=== PATIENT | female | born 1970 | race Two or more races ===

== ENCOUNTER 2021-11-13 16:49 | Emergency (ER) | payer OTHER, SELFPAY ==
--- NOTE | ~2021-11-13 | XR_ITS ---
EXAMINATION: XR CHEST CLINICAL INFORMATION: Shortness of breath COMPARISON: None TECHNIQUE: Frontal view of the chest was obtained. FINDINGS: The lungs are clear. No airspace consolidation, pleural effusion, or pneumothorax. The cardiomediastinal silhouette is within normal limits. No acute osseous injury. XR/XR chest 1V IMPRESSION: No acute pulmonary process.
[2021-11-13 17:07] VITALS: BP 149/85; PULSE 77; RESP 20; TEMP 36.8; O2SAT 98; BMI 27.3
[2021-11-13 17:36] LABS: COVID-19 Test Negative (Negative)
[2021-11-13 20:06] VITALS: PULSE 96; RESP 18; O2SAT 99
--- NOTE | 2021-11-13 21:22 | ED.GENADULT ---
HPI - General Adult General Chief complaint: Dyspnea Stated complaint: coughing/difficulty breathing Time Seen by Provider: 11/13/21 21:09 Source: patient Mode of arrival: ambulatory Limitations: no limitations History of Present Illness HPI narrative: Patient comes to the emergency room complaining of coughing for 3 months. Patient denies chest pain, shortness of breath fever or chills. Patient states that she has been seen by her primary care physician, patient already had a pulmonary function test, patient is still waiting for her results. Patient denies hemoptysis, no rib pain, no back pain. Patient states she came today because she coughed up a lot of saliva. Patient states that the cough can be present and any time of day, states it is not worse with laying flat or when she is asleep. Patient denies lower extremity swelling Related Data Allergies Allergy/AdvReac Type Severity Reaction Status Date / Time Unable to Assess Allergy Unverified 11/13/21 21:10 Review of Systems Review of Systems: Constitutional : No Weight loss, No Fever, No Chills, No Night Sweats, No Fatigue, No Malaise ENT/Mouth : No Hearing loss, No Ear Pain, No Nasal Congestion, No Sinus Pain, No Hoarseness, No sore throat, No Rhinorrhea, No Swallowing Difficulty Eyes: No Eye Pain, No Swelling, No Redness, No Foreign Body, No Discharge, No Vision Changes Cardiovascular : No Chest Pain, No SOB, No Dyspnea on Exertion, No Orthopnea, No Edema, No Palpitations Respiratory : Complaining of chronic Cough, No Sputum, No Wheezing, No Smoke Exposure, No Dyspnea Gastrointestinal : No Nausea, No Vomiting, No Diarrhea, No Constipation, No abdominal Pain, No Hematochezia, No Melena Genitourinary : no irregular bleeding, No Dysuria, No Urinary Frequency, No Hematuria, No Urinary Incontinence, No Urgency, No Flank Pain, No Urinary Flow Changes, No Hesitancy Musculoskeletal : No joint pain, No Myalgias, No Joint Swelling Skin : No Skin Lesions, No rash Neuro : No Weakness, No Numbness, No Paresthesias, No Loss of Consciousness, No Dizziness, No Headache Psych : No Anxiety/Panic, No Depression, No SI/HI/AH/VH, No Social Issues, Heme/Lymph: No Bruising, No Bleeding,No Lymphadenopathy Endocrine : No Polyuria, No Polydipsia, No Temperature Intolerance PMFSH Social History Social History Advance Directives: No Advance Directives Information Provided: No Physical Exam ED Vital Signs: Vital Signs - 24 hr 11/13/21 17:07 11/13/21 20:06 Temperature 98.3 F Pulse Rate 77 96 Respiratory Rate 20 18 Blood Pressure 149/85 H Pulse Oximetry 98 99 Oxygen Delivery Method Room Air Room Air BMI result Body Mass Index 27.3 Const Other: Appearance: Alert. Oriented X3. No acute distress. Eyes: Pupils equal, round and reactive to light. ENT: Pharynx normal. Neck: Normal inspection. Neck supple. No lymph nodes noted. No crepitus CVS: Normal heart rate and rhythm. Pulses normal. Normal S1 and S2 Respiratory: No respiratory distress. Breath sounds normal. No Wheezing. No rales Abdomen: Soft and nontender. No rigidity. No distention. Skin: Skin warm and dry. Normal skin color. Normal skin turgor. Extremities: No lower extremity edema. No Lacerations. No Rash Neuro: Oriented X 3. No motor deficit. No sensory deficit. Moving all extremities. No slurred speech. CN 2 through 12 grossly intact Psych: calm, cooperative, normal affect Course Course Course Narrative: Chest x-ray and COVID tests are negative. At this time, patient is asymptomatic. Physical exam is normal, no wheezing. I discussed with the patient that she could follow up with pulmonology for further evaluation. I discussed with the patient that it is unlikely that cough syrup would be of any benefit to her. Medical Decision Making Lab Data Labs: Lab Results 11/13/21 Range/Units 17:09 COVID-19 ([facility]) Negative (Negative) COVID-19 Clin Com See Note Imaging Data Chest x-ray: Radiologist's impression: FINDINGS: The lungs are clear. No airspace consolidation, pleural effusion, or pneumothorax. The cardiomediastinal silhouette is within normal limits. No acute osseous injury. XR/XR chest 1V IMPRESSION: No acute pulmonary process. Discharge Plan Discharge Clinical Impression: Chronic cough Patient Disposition: Home, Self-Care Instructions: Chronic Cough (ED) Additional Instructions: Please follow-up with your primary care physician tomorrow. If you have any worsening or new symptoms, please return to the emergency room or call 911 Referrals: Aureliano Ann MD [Physician] - 2 days
== END 2021-11-13 22:05 | disposition home or self-care (01) ==
PROVIDERS: Emergency Provider Emergency Medicine
DX: R05.3 Chronic cough (principal); Z20.822 Contact with and (suspected) exposure to COVID-19
CPT/HCPCS: 71045; 87635; 99282; 99283

== ENCOUNTER 2022-04-17 07:51 | Emergency (ER) | payer OTHER, SELFPAY ==
--- NOTE | ~2022-04-17 | CT_ITS ---
EXAMINATION: CT ABDOMEN AND PELVIS WITH CONTRAST CLINICAL INFORMATION: 51-year-old female with right-sided pain for 2 days COMPARISON: None TECHNIQUE: Multidetector volumetric images were obtained from the superior aspect of the liver through the pubic symphysis following administration 85 mL of Omnipaque 350 intravenous contrast. Sagittal and coronal reformatted images were obtained on the technologist's workstation. Oral contrast: No This CT examination was performed using dose optimization techniques as appropriate, variously including the following: *Automated exposure control *Adjustment of mA and/or kV according to patient size (this includes techniques or standardized protocols for targeted exams where dose is matched to indication/reason for exam; i.e. extremities or head) *Use of iterative reconstruction technique DLP: 745 mGy-cm FINDINGS: LUNG BASES: Linear platelike opacities of atelectasis in the visualized bases. No pulmonary consolidation or pleural effusion. LIVER: The liver has normal size, shape, and attenuation. No evidence of liver mass. GALLBLADDER AND BILIARY TREE: Gallbladder is without radiopaque stones, wall thickening or pericholecystic fluid. No dilated bile ducts. PANCREAS: Normal. No edema, pancreatic ductal dilatation or mass. SPLEEN: Normal. ADRENAL GLANDS: Normal. KIDNEYS AND URETERS: The kidneys have normal size and cortical thickness. No renal mass. No perinephric edema or fluid collection. No urolithiasis or hydroureteronephrosis. BLADDER: Normal. No calculi or wall thickening. BOWEL AND PERITONEUM: Stomach is unremarkable. No dilated loops of bowel. The appendix is normal. Diverticula of sigmoid colon. No overt bowel wall thickening or mesenteric fat stranding. No free fluid or pneumoperitoneum. ABDOMINAL WALL: Unremarkable. VASCULATURE: Abdominal aorta is normal smooth contour. No aneurysm or dissection. The celiac trunk, SMA, SPARKLE and renal arteries are widely patent. The finding of subtle haziness of retroperitoneal fat around the proximal celiac artery trunk is of questionable if any significance. No evidence of any retroperitoneal mass or retroperitoneal lymphadenopathy. LYMPH NODES: No pathologic sized lymph nodes in the abdomen or pelvis. No inguinal lymphadenopathy. PELVIC VISCERA: The uterus is retroflexed. No evidence of uterine or adnexal mass. No pelvic free fluid. MUSCULOSKELETAL: Degenerative disc disease and minimal retrolisthesis at L5-S1. No suspicious bone lesions. CT/CT abdomen pelvis w IV con IMPRESSION: * No specific source of right-sided pain is identified. No evidence of cholelithiasis or cholecystitis. * No inflammatory change or obstruction along the gastrointestinal tract. The appendix is normal. * Diverticulosis of the sigmoid colon without diverticulitis. * Minimal haziness of retroperitoneal fat around the origin of the celiac artery is of uncertain chronicity and is of doubtful significance with regards to the patient's current presentation. No evidence of retroperitoneal mass or lymphadenopathy. The celiac artery has normal contour and caliber. If the patient has any unexplained abdominal symptoms that do not resolve, then a follow-up abdominal CT examination may be considered in the next few months to ensure absence of any evolving disease process.
[2022-04-17 07:54] VITALS: BP 151/84; PULSE 71; RESP 18; TEMP 36.6; O2SAT 97; BMI 26.6
[2022-04-17 08:05] VITALS: BP 134/85; PULSE 70; RESP 16; TEMP 36.8; O2SAT 98
--- NOTE | 2022-04-17 08:29 | ED.ABDPAIN ---
HPI - Abdominal Pain General Chief Complaint: Abdominal Pain Stated Complaint: rt abd pain Time Seen by Provider: 04/17/22 07:58 Source: patient Mode of arrival: ambulatory Limitations: no limitations History of Present Illness HPI narrative: This is a 51-year-old female who presents with right-sided abdominal pain which radiates to the flank for 2 days. No nausea, vomiting, diarrhea, constipation. Last BM was yesterday. No fevers or chills. No surgical abdominal history Related Data Previous Rx's Medication Instructions Recorded cyclobenzaprine 10 mg tablet 10 mg PO TID PRN muscle spasm #10 04/17/22 tabs lidocaine 5 % topical patch 1 patch topical DAILY #15 ea 04/17/22 (Lidoderm) Allergies Allergy/AdvReac Type Severity Reaction Status Date / Time Unable to Assess Allergy Unverified 11/13/21 21:10 Review of Systems Review of Systems Yes all other systems are reviewed and are negative Constitutional: Reports no additional constitutional complaints, Denies body ache(s), Denies chills, Denies fever(s), Denies headache(s) and Denies weakness Eyes: Reports no additional eye complaints and Denies change in vision Reports system reviewed and no additional complaints, except as documented, Denies dizziness, Denies headache(s), Denies nasal congestion, Denies nasal discharge and Denies neck pain Cardiovascular: Reports no additional cardiovascular complaints, Denies chest pain, Denies leg edema and Denies dyspnea Respiratory: Reports no additional respiratory complaints, Denies cough and Denies dyspnea Gastrointestinal: Reports no additional gastrointestinal complaints, Reports abdominal pain, Denies diarrhea, Denies nausea and Denies vomiting Genitourinary: Reports no additional female genitourinary complaints and Denies urinary incontinence Musculoskeletal: Reports no additional musculoskeletal complaints, Denies back pain, Denies arthralgias, Denies joint swelling, Denies neck pain, Denies numbness and Denies tingling Skin/Breast: Reports system reviewed and no additional complaints, except as docu and Denies rash Reports system reviewed and no additional complaints, except as documented, Denies dizziness, Denies headache(s), Denies numbness, Denies tingling and Denies weakness PMFSH Past Medical History Attestation statement: The following information was validated with the patient. Source: old records reviewed and nursing notes reviewed Social History Social History Smoked in Last 30 Days: No Use of substances other than those prescribed or required for medical reasons: No Advance Directives: No Physical Exam ED Vital Signs: Vital Signs - 24 hr 04/17/22 07:54 04/17/22 08:05 04/17/22 11:12 Temperature 97.8 F 98.2 F Pulse Rate 71 70 55 Respiratory Rate 18 16 15 Blood Pressure 151/84 H 134/85 142/92 H Pulse Oximetry 97 98 99 Oxygen Delivery Method Room Air Room Air Room Air BMI result Body Mass Index 26.6 Const General: cooperative, healthy appearing, comfortable and no acute distress Orientation/consciousness: patient oriented x3 Limitations: no limitations HENMT Head: Yes normal to inspection Ears: hearing grossly normal bilaterally Eyes General: appearance normal, both eyes and all related structures Pupils: Equal, round and reactive pupils present Neck Neck: Yes normal visual inspection, Yes full ROM, Yes no lymphadenopathy and Yes no meningeal signs Chest Chest palpation & inspection: normal inspection of the chest Resp Effort & Inspection: normal respiratory effort Auscultation: clear to auscultation bilaterally Cardio Rate: regular rate Rhythm: regular rhythm Peripheral pulses: Peripheral pulses 2+ throughout GI Other: Pain in the abdomen is worsened with rotation of the trunk and flexion of the spine Inspection: Yes normal to inspection Palpation (GI): Soft to palpation and Tenderness to palpation present (GI) (Tenderness the right upper quadrant and right flank) Auscultation: normal bowel sounds Back/Spine/Pelvis Thoracic/Lumbar Spine: thoracic and lumbar spine normal to inspection Skin General skin exam: no rashes or lesions noted Neuro General: patient oriented x3, moves all extremities and no meningeal signs Cranial nerves: Yes Equal, round and reactive pupils present Cognition (Neuro): normal cognition Gait exam (Neuro): Normal gait present Extrem General: Yes normal to inspection, Yes no pedal edema and Yes no calf tenderness Medical Decision Making Medical Decision Making MDM Narrative: 51-year-old female here with right-sided abdominal pain with radiation to the back for the last 2 days but no other associated symptoms. Will obtain labs, UA, CT, COVID screen. Will provide analgesia-patient requesting nonnarcotic Differential Diagnosis Differential Diagnoses: The differential diagnosis associated with the presentation includes Cholecystitis, cholelithiasis, renal colic, pyelonephritis, acute appendicitis Admission/Observation Consideration of admission/observation: Escalation of care including admission/observation considered CT with no acute finding. Labs and urine are unremarkable. Pain is much better with receiving a dose of Toradol IM. Repeat abdominal exam is benign. ? Musculoskeletal pain. Patient was instructed on the findings of the CT scan. It was recommended that she have follow-up for this. Will treat her for muscular pain with low-dose muscle relaxant and medicated patches. Patient should return for worsening symptoms. Consult Healthcare Provider Management of the patient was discussed with: [employer] Student Education Teacher (Gastroenterology) Spoke to Dr. Geiger from GI. Patient has some haziness of retroperitoneal fat around the origin of the celiac artery. ?celiac artery compression syndrome however less likely as is more of an acute episode and not a chronic problem. Dr. Geiger feels it is secondary to inflammation Lab Data MDM Lab Attestation statement: I reviewed the patient's lab results. 04/17/22 08:42 04/17/22 09:35 Labs: Lab Results 04/17/22 04/17/22 04/17/22 Range/Units 08:32 08:41 08:42 WBC 7.7 (4.8-10.8) X10*3/uL RBC 4.94 (4.20-5.50) X10*6/uL Hgb 13.5 (12.0-16.0) g/dl Hct 42.4 (37.0-47.0) % MCV 85.8 (80.0-98.0) fL MCH 27.3 (27.0-33.0) pg MCHC 31.8 (31.0-35.0) g/dl RDW 15.7 (11.0-16.0) % Plt Count 420 H (160-400) X10*3/uL MPV 9.8 (9.4-12.3) fL Immature Gran % (Auto) 0.3 (0.0-0.4) % Neut % (Auto) 58.1 (45-73) % Lymph % (Auto) 31.1 (20-40) % [place] % (Auto) 8.1 (2-11) % Eos % (Auto) 1.7 (0-4) % Baso % (Auto) 0.7 (0-2) % Lymph # (Auto) 2.4 (1.2-4.9) X10*3/uL [place] # (Auto) 0.6 (0.1-1.2) X10*3/uL Eos # (Auto) 0.1 (0.0-0.4) X10*3/uL Baso # (Auto) 0.1 (0.0-0.2) X10*3/uL Abs Immat Gran (auto) 0.02 (0.00-0.03) X10*3/uL Absolute Neuts (auto) 4.5 (2.0-8.3) x10*3/uL Absolute Nucleated RBC 0.000 (0.0-0.012) X10*3/uL Nucleated RBC % (auto) 0.0 (0.0-0.2) /100WBC Sodium (135-145) mmol/L Potassium (3.3-5.1) mmol/L Chloride (96-108) mmol/L Carbon Dioxide (22-29) mmol/L Anion Gap (12-20) BUN (9-16) mg/dL Creatinine (0.5-1.4) mg/dL Estim Creat Clear Calc Estimated GFR Random Glucose (60-115) mg/dL Calcium (8.4-10.2) mg/dL Total Bilirubin (0.0-1.0) mg/dL Direct Bilirubin (0.0-0.5) mg/dL AST (5-31) U/L ALT (0-31) U/L Alkaline Phosphatase (39-117) U/L Total Protein (6.5-8.0) g/dL Albumin (3.5-5.0) g/dL Urine Color Yellow Urine Appearance Cloudy Urine pH 7.0 (5.0-9.0) Ur Specific [place] 1.015 (1.005-1.025) Urine Protein Negative (Neg-Trace) mg/dL Urine Glucose (UA) Negative (Negative) mg/dL Urine Ketones Negative (Negative) mg/dL Urine Blood Negative (Negative) Urine Nitrite Negative (Negative) Ur Leukocyte Esterase Trace H (Negative) Urine RBC 0-2 (0-2) /HPF Urine WBC 0-5 (0-5) /HPF Ur Squamous Epith Cells 6-10 (0-2) /HPF Urine Bacteria 3+ (None Seen) Hyaline Casts 0-2 (0-2) /LPF COVID-19 ([facility]) Negative (Negative) COVID-19 Clin Com See Note 04/17/22 Range/Units 09:35 WBC (4.8-10.8) X10*3/uL RBC (4.20-5.50) X10*6/uL Hgb (12.0-16.0) g/dl Hct (37.0-47.0) % MCV (80.0-98.0) fL MCH (27.0-33.0) pg MCHC (31.0-35.0) g/dl RDW (11.0-16.0) % Plt Count (160-400) X10*3/uL MPV (9.4-12.3) fL Immature Gran % (Auto) (0.0-0.4) % Neut % (Auto) (45-73) % Lymph % (Auto) (20-40) % [place] % (Auto) (2-11) % Eos % (Auto) (0-4) % Baso % (Auto) (0-2) % Lymph # (Auto) (1.2-4.9) X10*3/uL [place] # (Auto) (0.1-1.2) X10*3/uL Eos # (Auto) (0.0-0.4) X10*3/uL Baso # (Auto) (0.0-0.2) X10*3/uL Abs Immat Gran (auto) (0.00-0.03) X10*3/uL Absolute Neuts (auto) (2.0-8.3) x10*3/uL Absolute Nucleated RBC (0.0-0.012) X10*3/uL Nucleated RBC % (auto) (0.0-0.2) /100WBC Sodium 139 (135-145) mmol/L Potassium 4.2 (3.3-5.1) mmol/L Chloride 105 (96-108) mmol/L Carbon Dioxide 25 (22-29) mmol/L Anion Gap 13 (12-20) BUN 13 (9-16) mg/dL Creatinine 0.76 (0.5-1.4) mg/dL Estim Creat Clear Calc 94.7 Estimated GFR > 60 Random Glucose 101 (60-115) mg/dL Calcium 9.4 (8.4-10.2) mg/dL Total Bilirubin 0.3 (0.0-1.0) mg/dL Direct Bilirubin < 0.2 (0.0-0.5) mg/dL AST 18 (5-31) U/L ALT 12 (0-31) U/L Alkaline Phosphatase 102 (39-117) U/L Total Protein 6.9 (6.5-8.0) g/dL Albumin 3.9 (3.5-5.0) g/dL Urine Color Urine Appearance Urine pH (5.0-9.0) Ur Specific [place] (1.005-1.025) Urine Protein (Neg-Trace) mg/dL Urine Glucose (UA) (Negative) mg/dL Urine Ketones (Negative) mg/dL Urine Blood (Negative) Urine Nitrite (Negative) Ur Leukocyte Esterase (Negative) Urine RBC (0-2) /HPF Urine WBC (0-5) /HPF Ur Squamous Epith Cells (0-2) /HPF Urine Bacteria (None Seen) Hyaline Casts (0-2) /LPF COVID-19 ([facility]) (Negative) COVID-19 Clin Com Independent Interpretation I performed an independent interpretation of an: CT Scan (I independently reviewed the CT scan which shows no acute finding) Radiology Impression Discussion of test interpretation with radiology: I have reviewed the radiologist's reading. Radiologist Impression: FINDINGS: LUNG BASES: Linear platelike opacities of atelectasis in the visualized bases. No pulmonary consolidation or pleural effusion.? LIVER: The liver has normal size, shape, and attenuation.? No evidence of liver mass. GALLBLADDER AND BILIARY TREE: Gallbladder is without radiopaque stones, wall thickening or pericholecystic fluid.? No dilated bile ducts. PANCREAS: Normal. No edema, pancreatic ductal dilatation or mass.? SPLEEN: Normal.? ADRENAL GLANDS: Normal.? KIDNEYS AND URETERS: The kidneys have normal size and cortical thickness. No renal mass. No perinephric edema or fluid collection. No urolithiasis or hydroureteronephrosis. BLADDER:? Normal. No calculi or wall thickening. BOWEL AND PERITONEUM: Stomach is unremarkable. No dilated loops of bowel. The appendix is normal. Diverticula of sigmoid colon. No overt bowel wall thickening or mesenteric fat stranding. No free fluid or pneumoperitoneum. ABDOMINAL WALL: Unremarkable.? VASCULATURE: Abdominal aorta is normal smooth contour. No aneurysm or dissection. The celiac trunk, SMA, SPARKLE and renal arteries are widely patent. The finding of subtle haziness of retroperitoneal fat around the proximal celiac artery trunk is of questionable if any significance. No evidence of any retroperitoneal mass or retroperitoneal lymphadenopathy. LYMPH NODES: No pathologic sized lymph nodes in the abdomen or pelvis. No inguinal lymphadenopathy. PELVIC VISCERA: The uterus is retroflexed. No evidence of uterine or adnexal mass. No pelvic free fluid. MUSCULOSKELETAL: Degenerative disc disease and minimal retrolisthesis at L5-S1. No suspicious bone lesions.? CT/CT abdomen pelvis w IV con IMPRESSION: *? No specific source of right-sided pain is identified. No evidence of cholelithiasis or cholecystitis. *? No inflammatory change or obstruction along the gastrointestinal tract. The appendix is normal. *? Diverticulosis of the sigmoid colon without diverticulitis. *? Minimal haziness of retroperitoneal fat around the origin of the celiac artery is of uncertain chronicity and is of doubtful significance with regards to the patient's current presentation. No evidence of retroperitoneal mass or lymphadenopathy. The celiac artery has normal contour and caliber. If the patient has any unexplained abdominal symptoms that do not resolve, then a follow-up abdominal CT examination may be considered in the next few months to ensure absence of any evolving disease process. ? Independent Historian Clinical information obtained from an independent historian. History obtained from or confirmed by: Spouse Medications Administered Discontinued Medications Generic Name Dose Route Start Last Admin Trade Name Freq PRN Reason Stop Dose Admin Iohexol 100 ml 04/17/22 10:36 04/17/22 10:37 Iohexol 350 Mg/Ml 100 Ml Infus..Btl IV 04/17/22 10:37 85 ml ONCE ONE Administration Ketorolac Tromethamine 30 mg 04/17/22 08:17 04/17/22 08:52 Ketorolac Tromethamine 30 Mg/Ml Vial IVPUSH 04/17/22 08:18 30 mg ONCE ONE Administration Discharge Plan Discharge Clinical Impression: Abdominal pain Patient Disposition: Home, Self-Care Instructions: Abdominal Pain (ED) Additional Instructions: Your CT scan of the abdomen pelvis shows a little bit of inflammation. This will likely resolve however if you are having continued pain it is recommend that you have a repeat CT scan in a few months by your primary care doctor. Your lab work and urine testing or reassuring On exam you have a lot of tenderness over the muscle and soft tissue of the back and side. This may be muscular in nature. Therefore we are starting on some medications to help with this. Please rest for the next few days, limit heavy lifting or bending Return to the emergency room for worsening symptoms Prescriptions: New lidocaine [Lidoderm] 5 % adhesive patch,medicated 1 patch topical DAILY Qty: 15 0RF Rx Instructions: leave on most painful area for up to 12 hrs cyclobenzaprine 10 mg tablet 10 mg PO TID PRN (Reason: muscle spasm) Qty: 10 0RF Referrals: Physician,Unknown J [Primary Care Provider] - Stand Alone Forms: Work/School Release
[2022-04-17] MEDS: Ketorolac Tromethamine 30 MG/ML VIAL IVPUSH (08:52)
[2022-04-17 08:54] LABS: COVID-19 Test Negative (Negative); IDNOW Serial# 16C4AD1C
[2022-04-17 09:02] LABS: MANUAL DIFF FLAG NO
[2022-04-17 09:23] LABS: Basophils Absolute Auto 0.1 X10*3/uL (0.0-0.2); Basophils Percent Auto 0.7 % (0-2); Eosinophils Absolute Auto 0.1 X10*3/uL (0.0-0.4); Eosinophils Percent Auto 1.7 % (0-4); Hematocrit 42.4 % (37.0-47.0); Hemoglobin 13.5 g/dl (12.0-16.0); Imm Gran Abs Auto 0.02 X10*3/uL (0.00-0.03); Imm Gran Pct Auto 0.3 % (0.0-0.4); Lymphocytes Absolute Auto 2.4 X10*3/uL (1.2-4.9); Lymphocytes Percent Auto 31.1 % (20-40); Mean Corpuscular HGB Conc 31.8 g/dl (31.0-35.0); Mean Corpuscular Hemoglobin 27.3 pg (27.0-33.0); Mean Corpuscular Volume 85.8 fL (80.0-98.0); Mean Platelet Volume 9.8 fL (9.4-12.3); Monocytes Absolute Auto 0.6 X10*3/uL (0.1-1.2); Monocytes Percent Auto 8.1 % (2-11); Neutrophils Absolute Auto 4.5 x10*3/uL (2.0-8.3); Neutrophils Percent Auto 58.1 % (45-73); Platelet Count 420 X10*3/uL (160-400); Red Blood Count 4.94 X10*6/uL (4.20-5.50); Red Cell Distribution Width 15.7 % (11.0-16.0); White Blood Count 7.7 X10*3/uL (4.8-10.8)
[2022-04-17 09:31] LABS: Appearance Urine Cloudy; Color Urine Yellow; Glucose Urine UA Negative (Negative); Leukocyte Esterase Urine Trace (Negative); Nitrite Urine Negative (Negative); Specific Gravity - Urine 1.015 (1.005-1.025); UMIC TRIGGER UACC YES; Urine Blood Negative (Negative); Urine Ketones Negative (Negative); Urine Protein Negative (Neg-Trace)
--- NOTE | 2022-04-17 09:35 | PC.NURSE ---
PT REPORTS 8/10 RIGHT SIDED ABDOMINAL PAIN THAT STARTED 3 DAYS AGO AND HAS GOTTEN PROGRESSIVELY WORSE, LAST BM YESTERDAY. DENIES N/V/D. NO ONE IN HOUSEHOLD SICK. NO OTHER SYMPTOMS REPORTED. 20g RAC IV INSERTED, MEDS GIVEN DOCUMENTED. PT'S AT BEDSIDE.
[2022-04-17 09:36] LABS: Bacteria Urine 3+ (None Seen); Hyaline Casts Urine 0-2 /LPF (0-2); RBC Urine 0-2 /HPF (0-2); WBC Urine 0-5 /HPF (0-5)
[2022-04-17 10:03] LABS: Alanine Aminotransferase 12 U/L (0-31); Albumin Level 3.9 g/dL (3.5-5.0); Alkaline Phosphatase 102 U/L (39-117); Anion Gap 13 (12-20); Aspartate Amino Transferase 18 U/L (5-31); Bilirubin Direct < 0.2 mg/dL (0.0-0.5); Bilirubin Total 0.3 mg/dL (0.0-1.0); Blood Urea Nitrogen 13 mg/dL (9-16); Calcium 9.4 mg/dL (8.4-10.2); Carbon Dioxide 25 mmol/L (22-29); Chloride 105 mmol/L (96-108); Creatinine Clr Calc Pharmacy 94.7; Estimated Glomerular Filt Rate > 60; Glucose Random 101 mg/dL (60-115); Potassium 4.2 mmol/L (3.3-5.1); Sodium 139 mmol/L (135-145); Total Protein 6.9 g/dL (6.5-8.0)
[2022-04-17] MEDS: iohexoL 350 MG/ML 100 ML INFUS..BTL IV (10:37)
[2022-04-17 11:12] VITALS: BP 142/92; PULSE 55; RESP 15; O2SAT 99
[2022-04-17 12:20] VITALS: BP 128/82; PULSE 58; RESP 15; O2SAT 98
== END 2022-04-17 12:31 | disposition home or self-care (01) ==
PROVIDERS: Nurse Practitioner Family; Emergency Provider Emergency Medicine
DX: R10.31 Right lower quadrant pain (principal); Z20.822 Contact with and (suspected) exposure to COVID-19; Z20.828 Contact with and (suspected) exposure to other viral communicable diseases; Z79.899 Other long term (current) drug therapy
CPT/HCPCS: 36415; 74177; 80048; 80076; 81001; 85025; 87635; 96374; 99284; J1885; Q9967

== ENCOUNTER 2022-10-23 15:56 | Emergency (ER) | payer OTHER, SELFPAY ==
--- NOTE | ~2022-10-23 | CT_ITS ---
EXAMINATION: CT ABDOMEN AND PELVIS WITH CONTRAST CLINICAL INFORMATION: Left-sided abdominal pain. Constipation. COMPARISON: 04/17/2022 TECHNIQUE: Multidetector volumetric images were obtained from the superior aspect of the liver through the pubic symphysis following administration 85 mL of Omnipaque 350 intravenous contrast. Sagittal and coronal reformatted images were obtained on the technologist's workstation. Oral contrast: No This CT examination was performed using dose optimization techniques as appropriate, variously including the following: *Automated exposure control *Adjustment of mA and/or kV according to patient size (this includes techniques or standardized protocols for targeted exams where dose is matched to indication/reason for exam; i.e. extremities or head) *Use of iterative reconstruction technique DLP: 736 mGy-cm FINDINGS: LUNG BASES: Bibasilar atelectasis. LIVER, GALLBLADDER, AND BILIARY TREE: The liver is normal in size, shape, and attenuation. No focal hepatic lesion or biliary ductal dilatation is present. The gallbladder is unremarkable with no evidence of radiopaque gallstones, gallbladder wall thickening, or obvious pericholecystic inflammatory changes. PANCREAS: Unremarkable. SPLEEN: Unremarkable. ADRENAL GLANDS: Unremarkable. KIDNEYS AND URETERS: The kidneys are normal in size, shape, and attenuation. No hydronephrosis, hydroureter, or calculi seen. No perinephric stranding. BLADDER: Unremarkable. GASTROINTESTINAL TRACT: The stomach is unremarkable. Normal caliber small bowel. Small duodenal diverticulum at the second portion of the duodenum. Normal appendix. Mild wall thickening seen in the region of the sigmoid colon with faint adjacent inflammation. There are a few colonic diverticula present. ABDOMINAL WALL: No significant hernia is appreciated. LYMPH NODES: Normal. VASCULAR: Normal caliber aorta. Circumaortic left renal vein. PELVIC VISCERA: The uterus and adnexa are unremarkable. OSSEOUS STRUCTURES: No acute or suspicious osseous abnormality. Grade 1 retrolisthesis of L5 on S1 with disc space narrowing and vacuum disc phenomenon. CT/CT abdomen pelvis w IV con IMPRESSION: Mild wall thickening of the sigmoid colon with faint adjacent inflammation. Given the presence of a few scattered diverticula, this is most suspicious for diverticulitis, though short segment colitis is possible. Fleischner guidelines were followed.
[2022-10-23 16:00] VITALS: BP 144/98; PULSE 106; RESP 16; TEMP 36.9; O2SAT 96; BMI 28.6
--- NOTE | 2022-10-23 16:00 | ED.ABDPAIN ---
HPI - Abdominal Pain General Chief Complaint: Abdominal Pain Stated Complaint: vomiting, chills, not using the bathroom Time Seen by Provider: 10/23/22 18:44 Source: patient and family (patient's ) Mode of arrival: ambulatory Limitations: no limitations History of Present Illness HPI narrative: Patient is a 52 year old assigned female at with a history of hypothyroidism secondary to thyroid removal, depression, anxiety, and bipolar disorder presenting to the emergency department today with abdominal pain, nausea, and vomiting. Patient states that over the last day she has had abdominal pain, nausea, and vomiting. Patient states that she was concerned she was constipated but has not really had any bowel changes. Patient denies any dizziness, lightheadedness, fever, chills, blurry vision, double vision, loss of vision, chest pain, difficulty breathing, shortness of breath, back pain, night sweats, pain with urination, increased urinary frequency, increased urinary urgency, blood in her urine or stool, syncope or a near syncopal episode, recent trauma or falls, bowel incontinence, bladder incontinence, bowel retention, bladder retention, or any other complaints at this time. MD elicited complaint: abdominal pain Pertinent past history: none Onset (ago): day(s) Pain Consistency: constant Location: diffuse Severity: mild Pain scale (0-10): 3 Quality: aching Radiation: none Exacerbating factors: nothing Relieving factors: nothing Associated symptoms: nausea and vomiting Related Data Previous Rx's Medication Instructions Recorded cyclobenzaprine 10 mg tablet 10 mg PO TID PRN muscle spasm #10 04/17/22 tabs lidocaine 5 % topical patch 1 patch topical DAILY #15 ea 04/17/22 (Lidoderm) amoxicillin 875 mg-potassium 1 tab PO BID 10 days #20 tabs 10/23/22 clavulanate 125 mg tablet ondansetron 4 mg disintegrating 4 mg PO Q8H 3 days #9 tabs 10/23/22 tablet Allergies Allergy/AdvReac Type Severity Reaction Status Date / Time Penicillins Allergy Rash Verified 10/23/22 16:00 Review of Systems Constitutional: Reports no additional constitutional complaints, Denies chills, Denies fever(s) and Denies night sweats Eyes: Reports no additional eye complaints, Denies blurry vision, Denies change in vision, Denies diplopia, Denies eye discharge, Denies loss of vision and Denies eye pain Denies dizziness Cardiovascular: Reports no additional cardiovascular complaints, Denies chest pain, Denies lightheadedness, Denies Loss of Consciousness and Denies dyspnea Respiratory: Reports no additional respiratory complaints and Denies dyspnea Gastrointestinal: Reports no additional gastrointestinal complaints, Reports abdominal pain, Denies melena, Denies hematochezia, Denies change in bowel habits, Denies change in stool character, Reports nausea and Reports vomiting Genitourinary: Denies hematuria, Denies urinary frequency, Denies dysuria, Denies urinary incontinence, Denies urinary hesitancy and Denies urinary urgency Musculoskeletal: Reports no additional musculoskeletal complaints, Denies numbness and Denies tingling Denies dizziness, Denies loss of vision, Denies numbness and Denies tingling Psychiatric: Reports no additional psychiatric complaints Endocrine: Reports no additional endocrine complaints Hematologic/Lymphatic: Reports no additional hematologic/lymphatic complaints Allergic/Immunologic: Reports no additional allergic/immunologic complaints PMFSH Past Medical History Attestation statement: The following information was validated with the patient. (patient's validated all information provided by the patient.) Source: old records reviewed, obtained from family (patient's provided additional history and confirmed the history provided by the patient.) and nursing notes reviewed Medical History Anxiety Bipolar illness Depression Social History Social History Alcohol intake: never Smoked in Last 30 Days: No Use of substances other than those prescribed or required for medical reasons: No Advance Directives: No Advance Directives Information Provided: No Patient : No Physical Exam ED Vital Signs: Vital Signs - 24 hr 10/23/22 16:00 10/23/22 21:15 Temperature 98.5 F 98.5 F Pulse Rate 106 H 87 Respiratory Rate 16 17 Blood Pressure 144/98 H 135/81 Pulse Oximetry 96 95 Oxygen Delivery Method Room Air Room Air BMI result Body Mass Index 28.6 Const General: cooperative, no acute distress, alert and awake Nutritional Appearance: well nourished Orientation/consciousness: patient oriented x3 Limitations: no limitations HENMT Head: Yes normal to inspection and Yes atraumatic Ears: hearing grossly normal bilaterally and external ears normal General nose exam: Normal external nose present, no nasal discharge noted and no epistaxis Face and sinus: Yes normal facial exam, No abrasion and No laceration Mouth: Normal oral and palatal mucosa present, no drooling and no muffled voice Eyes General: appearance normal, both eyes and all related structures Periorbital: periorbital findings normal Eyelids: Yes eyelids normal Conjunctivae: conjunctivae normal Pupils: Equal, round and reactive pupils present EOM: EOMs intact bilaterally Neck Neck: Yes normal visual inspection, Yes full ROM and Yes no lymphadenopathy Chest Chest palpation & inspection: normal inspection of the chest Resp Effort & Inspection: normal respiratory effort and able to speak in complete sentences Auscultation: clear to auscultation bilaterally Cardio Rate: regular rate Rhythm: regular rhythm GI Inspection: Yes normal to inspection Palpation (GI): Soft to palpation, not firm, Tenderness to palpation present (GI), no guarding and not rigid Neuro General: patient oriented x3 and moves all extremities Cranial nerves: Yes Equal, round and reactive pupils present Cognition (Neuro): normal cognition Motor exam (neuro): 5/5 motor strength present throughout Sensory Exam: Normal double simultaneous stimulation for sensation Coordination: [id number] test normal Extrem General: Yes normal to inspection, Yes full ROM and Yes capillary refill normal Psych Appearance: grossly normal Mental Status: mental status grossly normal Affect: normal affect Attitude: cooperative Thought process: Normal thought process present Thought content: Normal thought content present Insight: Good insight present (Psych) Course Course Course Narrative: This is an RME: Additional HPI, ROS, PE not included below will be deferred to primary provider. Patient is a 52-year-old female who presents emergency department for evaluation of abdominal pain with sudden onset yesterday associated nausea, vomiting, chills. Attempted to take miralax today without any improvement. last normal bowel movement was 1 week ago. left abd tenderness upon palpation. Had similar symptoms earlier this year when she presented to the emergency department. Review of CT imaging from April 2022 revealing mild haziness of retroperitoneal fat around the origin of the celiac artery, recommendation for follow-up abdominal CT if patient has any unexplained abdominal symptoms. Therefore will obtain repeat CT. Plan: Labs, urinalysis, CT AP Medical Decision Making Medical Decision Making MDM Narrative: Patient is a 52 year old assigned female at with a history of depression, bipolar disease, and anxiety presenting to the emergency department today with abdominal pain, nausea, and vomiting. Patient's physical exam showed abdominal tenderness to palpation but was otherwise unremarkable. Patient's blood work showed an elevated WBC count of 15.3. The rest of the patient's lab results were grossly normal. Patient's urine showed no acute process. Patient's abdomen/pelvis CT showed evidence of diverticulitis. I explained my physical exam findings as well as all test results to the patient and the patient's . I answered all questions asked by the patient and the patient's . Patient received IV fluids, antiemetic medication, and pain medication while in the department which she stated helped her symptoms significantly. I stressed the importance of the patient taking her medication as prescribed. I stressed the importance of the patient following up with her primary care provider and a GI specialist. I stressed the importance of the patient returning to the emergency department immediately if her symptoms were to worsen or if she were to develop any dizziness, shortness of breath, difficulty breathing, chest pain, blurry vision, loss of vision, nausea, vomiting, abdominal pain, fever, chills, back pain, or any other complaints. Patient and the patient's verbalized agreement and understanding with this treatment plan and discharge. Differential Diagnosis Differential Diagnoses: The differential diagnosis associated with the presentation includes Colitis Diverticulitis Appendicits Cholecystitis Abdominal pain Nausea Vomiting UTI Admission/Observation Consideration of admission/observation: Escalation of care including admission/observation considered Patient would have been admitted to the hospital had her work up had any findings where hospital admission was appropriate and her clinical presentation warranted hospital admission. Lab Data [facility] Lab Attestation statement: I reviewed the patient's lab results. My interpretation of these results are in the [facility] portion of this chart. 10/23/22 16:16 10/23/22 16:51 Labs: Lab Results 10/23/22 10/23/22 10/23/22 Range/Units 16:16 16:51 16:51 WBC 15.3 H (4.8-10.8) X10*3/uL RBC 5.21 (4.20-5.50) X10*6/uL Hgb 14.6 (12.0-16.0) g/dl Hct 45.0 (37.0-47.0) % MCV 86.4 (80.0-98.0) fL MCH 28.0 (27.0-33.0) pg MCHC 32.4 (31.0-35.0) g/dl RDW 14.6 (11.0-16.0) % Plt Count 373 (160-400) X10*3/uL MPV 8.8 L (9.4-12.3) fL Immature Gran % (Auto) 0.3 (0.0-0.4) % Neut % (Auto) 79.8 H (45-73) % Lymph % (Auto) 10.6 L (20-40) % [place] % (Auto) 7.9 (2-11) % Eos % (Auto) 1.0 (0-4) % Baso % (Auto) 0.4 (0-2) % Lymph # (Auto) 1.6 (1.2-4.9) X10*3/uL [place] # (Auto) 1.2 (0.1-1.2) X10*3/uL Eos # (Auto) 0.2 (0.0-0.4) X10*3/uL Baso # (Auto) 0.1 (0.0-0.2) X10*3/uL Abs Immat Gran (auto) 0.05 H (0.00-0.03) X10*3/uL Absolute Neuts (auto) 12.2 H (2.0-8.3) x10*3/uL Absolute Nucleated RBC 0.000 (0.0-0.012) X10*3/uL Nucleated RBC % (auto) 0.0 (0.0-0.2) /100WBC Sodium 140 (135-145) mmol/L Potassium 4.7 (3.3-5.1) mmol/L Chloride 105 (96-108) mmol/L Carbon Dioxide 26 (22-29) mmol/L Anion Gap 14 (12-20) BUN 8 L (9-16) mg/dL Creatinine 0.74 (0.5-1.4) mg/dL Estim Creat Clear Calc 99.4 Estimated GFR > 60 Random Glucose 95 (60-115) mg/dL Calcium 10.1 D (8.4-10.2) mg/dL Total Bilirubin 0.3 (0.0-1.0) mg/dL AST 22 (5-31) U/L ALT 22 (0-31) U/L Alkaline Phosphatase 110 (39-117) U/L Total Protein 8.0 (6.5-8.0) g/dL Albumin 4.3 (3.5-5.0) g/dL Lipase 12 (8-78) U/L TSH 2.74 (0.32-4.0) uIU/mL Urine Color Yellow Urine Appearance Clear Urine pH 6.5 (5.0-9.0) Ur Specific [place] <= 1.005 (1.005-1.025) Urine Protein Negative (Neg-Trace) mg/dL Urine Glucose (UA) Negative (Negative) mg/dL Urine Ketones Negative (Negative) mg/dL Urine Blood Trace H (Negative) Urine Nitrite Negative (Negative) Ur Leukocyte Esterase Negative (Negative) Urine RBC 0-2 (0-2) /HPF Urine WBC 0-5 (0-5) /HPF Ur Squamous Epith Cells 0-2 (0-2) /HPF Urine Bacteria None Seen (None Seen) Hyaline Casts 0-2 (0-2) /LPF Urine Test (NEGATIVE) COVID-19 (MELLY) (Negative) COVID-19 Clin Com Influenza Type A (MARK) (Negative) Influenza Type B (MARK) (Negative) Influenza A & B Note S. pyogenes GrpA MARK (Negative) 10/23/22 10/23/22 10/23/22 Range/Units 16:51 18:55 18:55 WBC (4.8-10.8) X10*3/uL RBC (4.20-5.50) X10*6/uL Hgb (12.0-16.0) g/dl Hct (37.0-47.0) % MCV (80.0-98.0) fL MCH (27.0-33.0) pg MCHC (31.0-35.0) g/dl RDW (11.0-16.0) % Plt Count (160-400) X10*3/uL MPV (9.4-12.3) fL Immature Gran % (Auto) (0.0-0.4) % Neut % (Auto) (45-73) % Lymph % (Auto) (20-40) % [place] % (Auto) (2-11) % Eos % (Auto) (0-4) % Baso % (Auto) (0-2) % Lymph # (Auto) (1.2-4.9) X10*3/uL [place] # (Auto) (0.1-1.2) X10*3/uL Eos # (Auto) (0.0-0.4) X10*3/uL Baso # (Auto) (0.0-0.2) X10*3/uL Abs Immat Gran (auto) (0.00-0.03) X10*3/uL Absolute Neuts (auto) (2.0-8.3) x10*3/uL Absolute Nucleated RBC (0.0-0.012) X10*3/uL Nucleated RBC % (auto) (0.0-0.2) /100WBC Sodium (135-145) mmol/L Potassium (3.3-5.1) mmol/L Chloride (96-108) mmol/L Carbon Dioxide (22-29) mmol/L Anion Gap (12-20) BUN (9-16) mg/dL Creatinine (0.5-1.4) mg/dL Estim Creat Clear Calc Estimated GFR Random Glucose (60-115) mg/dL Calcium (8.4-10.2) mg/dL Total Bilirubin (0.0-1.0) mg/dL AST (5-31) U/L ALT (0-31) U/L Alkaline Phosphatase (39-117) U/L Total Protein (6.5-8.0) g/dL Albumin (3.5-5.0) g/dL Lipase (8-78) U/L TSH (0.32-4.0) uIU/mL Urine Color Urine Appearance Urine pH (5.0-9.0) Ur Specific [place] (1.005-1.025) Urine Protein (Neg-Trace) mg/dL Urine Glucose (UA) (Negative) mg/dL Urine Ketones (Negative) mg/dL Urine Blood (Negative) Urine Nitrite (Negative) Ur Leukocyte Esterase (Negative) Urine RBC (0-2) /HPF Urine WBC (0-5) /HPF Ur Squamous Epith Cells (0-2) /HPF Urine Bacteria (None Seen) Hyaline Casts (0-2) /LPF Urine Test NEGATIVE (NEGATIVE) COVID-19 (MELLY) Negative (Negative) COVID-19 Clin Com See Note Influenza Type A (MARK) Negative (Negative) Influenza Type B (MARK) Negative (Negative) Influenza A & B Note See Note S. pyogenes GrpA MARK (Negative) 10/23/22 Range/Units 18:56 WBC (4.8-10.8) X10*3/uL RBC (4.20-5.50) X10*6/uL Hgb (12.0-16.0) g/dl Hct (37.0-47.0) % MCV (80.0-98.0) fL MCH (27.0-33.0) pg MCHC (31.0-35.0) g/dl RDW (11.0-16.0) % Plt Count (160-400) X10*3/uL MPV (9.4-12.3) fL Immature Gran % (Auto) (0.0-0.4) % Neut % (Auto) (45-73) % Lymph % (Auto) (20-40) % [place] % (Auto) (2-11) % Eos % (Auto) (0-4) % Baso % (Auto) (0-2) % Lymph # (Auto) (1.2-4.9) X10*3/uL [place] # (Auto) (0.1-1.2) X10*3/uL Eos # (Auto) (0.0-0.4) X10*3/uL Baso # (Auto) (0.0-0.2) X10*3/uL Abs Immat Gran (auto) (0.00-0.03) X10*3/uL Absolute Neuts (auto) (2.0-8.3) x10*3/uL Absolute Nucleated RBC (0.0-0.012) X10*3/uL Nucleated RBC % (auto) (0.0-0.2) /100WBC Sodium (135-145) mmol/L Potassium (3.3-5.1) mmol/L Chloride (96-108) mmol/L Carbon Dioxide (22-29) mmol/L Anion Gap (12-20) BUN (9-16) mg/dL Creatinine (0.5-1.4) mg/dL Estim Creat Clear Calc Estimated GFR Random Glucose (60-115) mg/dL Calcium (8.4-10.2) mg/dL Total Bilirubin (0.0-1.0) mg/dL AST (5-31) U/L ALT (0-31) U/L Alkaline Phosphatase (39-117) U/L Total Protein (6.5-8.0) g/dL Albumin (3.5-5.0) g/dL Lipase (8-78) U/L TSH (0.32-4.0) uIU/mL Urine Color Urine Appearance Urine pH (5.0-9.0) Ur Specific [place] (1.005-1.025) Urine Protein (Neg-Trace) mg/dL Urine Glucose (UA) (Negative) mg/dL Urine Ketones (Negative) mg/dL Urine Blood (Negative) Urine Nitrite (Negative) Ur Leukocyte Esterase (Negative) Urine RBC (0-2) /HPF Urine WBC (0-5) /HPF Ur Squamous Epith Cells (0-2) /HPF Urine Bacteria (None Seen) Hyaline Casts (0-2) /LPF Urine Test (NEGATIVE) COVID-19 (MELLY) (Negative) COVID-19 Clin Com Influenza Type A (MARK) (Negative) Influenza Type B (MARK) (Negative) Influenza A & B Note S. pyogenes GrpA MARK Negative (Negative) Independent Interpretation I performed an independent interpretation of an: CT Scan Interpretation: My interpretation is in agreement with the radiologist's impression of this imaging study. EXAMINATION: CT ABDOMEN AND PELVIS WITH CONTRAST? CLINICAL INFORMATION: Left-sided abdominal pain. Constipation.? COMPARISON: 04/17/2022 TECHNIQUE: Multidetector volumetric images were obtained from the superior aspect of the liver through the pubic symphysis following administration 85 mL of Omnipaque 350 intravenous contrast. Sagittal and coronal reformatted images were obtained on the technologist's workstation.? Oral contrast: No This CT examination was performed using dose optimization techniques as appropriate, variously including the following: *Automated exposure control *Adjustment of mA and/or kV according to patient size (this includes techniques or standardized protocols for targeted exams where dose is matched to indication/reason for exam; i.e. extremities or head) *Use of iterative reconstruction technique DLP: 736 mGy-cm FINDINGS: LUNG BASES: Bibasilar atelectasis.? LIVER, GALLBLADDER, AND BILIARY TREE: The liver is normal in size, shape, and attenuation. No focal hepatic lesion or biliary ductal dilatation is present. The gallbladder is unremarkable with no evidence of radiopaque gallstones, gallbladder wall thickening, or obvious pericholecystic inflammatory changes.? PANCREAS: Unremarkable.? SPLEEN: Unremarkable.? ADRENAL GLANDS: Unremarkable.? KIDNEYS AND URETERS: The kidneys are normal in size, shape, and attenuation. No hydronephrosis, hydroureter, or calculi seen. No perinephric stranding. ? BLADDER: Unremarkable.? GASTROINTESTINAL TRACT: The stomach is unremarkable. Normal caliber small bowel. Small duodenal diverticulum at the second portion of the duodenum. Normal appendix. Mild wall thickening seen in the region of the sigmoid colon with faint adjacent inflammation. There are a few colonic diverticula present. ABDOMINAL WALL: No significant hernia is appreciated.? LYMPH NODES: Normal. VASCULAR: Normal caliber aorta. Circumaortic left renal vein. PELVIC VISCERA: The uterus and adnexa are unremarkable.? OSSEOUS STRUCTURES: No acute or suspicious osseous abnormality. Grade 1 retrolisthesis of L5 on S1 with disc space narrowing and vacuum disc phenomenon.? CT/CT abdomen pelvis w IV con IMPRESSION: Mild wall thickening of the sigmoid colon with faint adjacent inflammation. Given the presence of a few scattered diverticula, this is most suspicious for diverticulitis, though short segment colitis is possible. ? Fleischner guidelines were followed. Dictated By: Gregg Fleming MD Signed By: Electronically signed by Gregg Fleming MD 10/23/22 9705 Radiology Impression Discussion of test interpretation with radiology: I have reviewed the radiologist's reading. Independent Historian Clinical information obtained from an independent historian. History obtained from or confirmed by: Spouse (Patient's provided additional history and confirmed the history provided by the patient.) Prescription Management I considered prescription management with: Antibiotic (patient prescribed an antibiotic for diverticulitis.) and Other (patient prescribed an anti-emetic.) Medications Administered Discontinued Medications Generic Name Dose Route Start Last Admin Trade Name Freq PRN Reason Stop Dose Admin Amoxicillin/Clavulanate Potassium 875 mg 10/23/22 21:43 10/23/22 21:57 Amoxicillin/Potassium Clav 875 Mg Tablet PO 10/23/22 21:44 875 mg ONCE ONE Administration Sodium Chloride 1,000 mls @ 999 mls/hr 10/23/22 19:00 10/23/22 21:18 Ns IV 10/23/22 20:00 Infused .Q1H1M FLAVIA Infusion Iohexol 100 ml 10/23/22 19:41 10/23/22 19:42 Iohexol 350 Mg/Ml 100 Ml Infus..Btl IV 10/23/22 19:42 85 ml ONCE ONE Administration Ketorolac Tromethamine 15 mg 10/23/22 21:12 10/23/22 21:18 Ketorolac Tromethamine 15 Mg/Ml Vial IVPUSH 10/23/22 21:13 15 mg ONCE ONE Administration Ondansetron HCl 4 mg 10/23/22 18:51 10/23/22 19:05 Ondansetron Hcl 4 Mg/2 Ml Vial IVPUSH 10/23/22 18:52 4 mg ONCE ONE Administration Discharge Plan Discharge Clinical Impression: Diverticulitis Patient Disposition: Home, Self-Care Instructions: Diverticulitis (ED), Diverticulitis Diet (ED) Additional Instructions: Follow up with your primary care provider. Return to the emergency department immediately if your symptoms worsen or if you develop any dizziness, shortness of breath, difficulty breathing, chest pain, blurry vision, loss of vision, nausea, vomiting, abdominal pain, fever, chills, back pain, or any other complaints. Prescriptions: New ondansetron 4 mg tablet,disintegrating 4 mg PO Q8H 3 Days Qty: 9 0RF amoxicillin-pot clavulanate 875-125 mg tablet 1 tab PO BID 10 Days Qty: 20 0RF No Action lidocaine [Lidoderm] 5 % adhesive patch,medicated 1 patch topical DAILY Qty: 15 0RF Rx Instructions: leave on most painful area for up to 12 hrs cyclobenzaprine 10 mg tablet 10 mg PO TID PRN (Reason: muscle spasm) Qty: 10 0RF Referrals: [facility] [place] [facility] [Provider Group] (Call to establish and follow up with a GI specialist.) [facility] [place] Family Medicine [Provider Group] (Call to establish and follow up with a primary care provider. If you already have a primary care provider, please follow up with them.) [facility] [place] Primary Care, [place] [Provider Group] (Call to establish and follow up with a primary care provider. If you already have a primary care provider, please follow up with them.) [facility] [place] Primary Care,Gia [Provider Group] (Call to establish and follow up with a primary care provider. If you already have a primary care provider, please follow up with them.) Interventions: ED Discharge Assessment Last Done: 10/23/22 22:00 Discharge Date/Time: 10/23/22 22:00 Print Language: Armenian
--- OUTSIDE RECORDS SUMMARY | 2022-10-23 16:18 | XMS_ITS | Continuity of Care Document ---
Author Name Unknown Organization [facility] Address [address] [place] [address]- Care Team Providers Care Correction Officer Supervisor Name Role Phone Chavo Rivas DO Primary Care Physician Encounter [facility] Date(s): 08/14/20 - 09/13/20 [facility] [address] [place], [place] [address] Attending Physician: Gerson Elam Admitting Physician: AdmGerson bragg Referring Physician: AdmtrGerson Allergies, Adverse Reactions, Alerts Substance Reaction Severity Status morphine severe headaches Active Immunizations Given and Recorded Vaccine Date Status Refusal Reason influenza virus vaccine, inactivated 05/04/17 Give n influenza virus vaccine, inactivated 01/30/14 Give n tetanus/diphtheria/pertussis, acel(Tdap) 05/04/17 Given Medications busPIRone 7.5 mg oral tablet 1 tablet = 7.5 mg, By Mouth, 3 times a day, # 90 tablet, 0 Refills, Maintenance, 09/24/18 10:21:08 EDT, Tablet Start Date: 09/24/18 Status: Ordered lamotrigine 100 mg oral tablet 200 mg, 2, tablet, By Mouth, Daily, Refills 0, Maintenance, 02/01/18 13:56:12 EDT Start Date: 02/01/18 Status: Ordered left knee brace left knee brace, See Instructions, # 1 each, Refills 0, Tot. Refills 0, Maintenance, left knee brace, 09/24/18 10:56:02 EDT, Compound Start Date: 09/24/18 Status: Ordered levothyroxine 0.112 mg oral tablet 1 tablet = 112 mcg, By Mouth, Daily, # 30 tablet, 11 Refills, Maintenance, 11/12/19 11:04:00 EDT, Tablet, [id number], 173, cm, 11/13/18 8:36:00 EDT, Height, 75.2, kg, 02/28/18 7:07:00 EST, Dry Weight Start Date: 11/12/19 Status: Ordered raNITIdine 300 mg oral capsule See Instructions, # 30 capsule, Refills 2 Tot. Refills 2, TAKE 1 CAPSULE BY MOUTH DAILY AT BEDTIME,[id number] Start Date: 01/23/19 Status: Ordered Wellbutrin By Mouth, 0 Refills, Maintenance, 05/26/14 15:11:48 Start Date: 05/26/14 Status: Ordered zolpidem 5 mg oral tablet 2 tablet = 10 mg, By Mouth, Daily at bedtime, PRN for sleep, 0 Refills, Maintenance, 09/24/18 10:20:55 EDT, Tablet Start Date: 09/24/18 Status: Ordered Problem List Condition Effective Dates Status Health Status Inform ant ASCUS, HPV pos(Confirmed) Active Anxiety(Confirmed) Active Bipolar illness(Confirmed) Active Depression(Confirmed) Active Family history of colon cancer(Confirmed) 1 Active Graves disease s/p thyroidectomy(Confirmed) Active 1grandfaterh,a ge 60 Social History Social History Type Response Smoking Status Never smoker entered on: 01/30/14 Sex
--- OUTSIDE RECORDS SUMMARY | 2022-10-23 16:18 | XMS_ITS | Continuity of Care Document ---
Author Name Unknown Organization [facility] Address [address] [place] [address]- Care Team Providers Care Manager Lean Name Role Phone Joce SOL, Ruthy Primary Care Physician Encounter [facility] Date(s): 09/20/21 - 10/20/21 [facility] [address] [place], [place] [address] Attending Physician: Gerson Elam Admitting Physician: AdmtrGerson Referring Physician: Admtr, Ar8 Allergies, Adverse Reactions, Alerts Substance Reaction Severity Status morphine severe headaches Active Immunizations Given and Recorded Vaccine Date Status Refusal Reason zoster vaccine, inactivated 08/22/21 Recorded SARS-CoV-2 (COVID-19) mRNA BNT-162b2 vac 03/04/21 Recorded SARS-CoV-2 (COVID-19) mRNA BNT-162b2 vac 07/29/20 Recorded SARS-CoV-2 (COVID-19) mRNA BNT-162b2 vac 07/08/20 Recorded influenza virus vaccine, inactivated 03/01/21 Barry rded influenza virus vaccine, inactivated 01/02/20 Barry rded influenza virus vaccine, inactivated 01/16/19 Barry rded influenza virus vaccine, inactivated 05/04/17 Give n influenza virus vaccine, inactivated 12/01/15 Barry rded influenza virus vaccine, inactivated 01/30/14 Give n tetanus/diphtheria/pertussis, acel(Tdap) 05/04/17 Given tetanus/diphtheria/pertussis, acel(Tdap) 06/26/07 Recorded Medications busPIRone 7.5 mg oral tablet 1 [...] mcg, By Mouth, Daily, # 30 tablet, 1 Refills, Maintenance, 10/12/21 12:09:00 EDT, Tablet, [facility] #[id number], 173, cm, 07/12/21 8:39:00 EDT, Height Start Date: 10/12/21 Status: Ordered raNITIdine 300 mg oral capsule See Instructions, # 30 capsule, Refills 2 Tot. Refills 2, TAKE 1 CAPSULE BY MOUTH DAILY AT BEDTIME,[facility] #[id number] Start Date: 01/23/19 Status: Ordered Wellbutrin By [...]
--- OUTSIDE RECORDS SUMMARY | 2022-10-23 16:18 | XMS_ITS | Continuity of Care Document ---
Author Name Unknown Organization [facility] Address [address] [place] [address]- Care Team Providers Care Sales Operations Consultant Name Role Phone Chavo Rivas DO Primary Care Physician Encounter [facility] Date(s): 11/07/19 - 12/07/19 [facility] [address] [place] [address]- [facility] Allergies, Adverse Reactions, Alerts Substance Reaction Severity [...] 11 Refills, Maintenance, 11/12/19 11:04:00 EDT, Tablet, [facility] #[id number], 173, cm, 11/13/18 8:36:00 EDT, Height, 75.2, kg, 02/28/18 7:07:00 EST, Dry Weight Start Date: 11/12/19 Status: Ordered raNITIdine 300 mg oral capsule See Instructions, # 30 capsule, Refills 2 Tot. Refills 2, TAKE 1 CAPSULE BY MOUTH DAILY AT BEDTIME,[facility] #[id number] Start Date: 01/23/19 Status: Ordered Wellbutrin By [...]
--- OUTSIDE RECORDS SUMMARY | 2022-10-23 16:18 | XMS_ITS | Continuity of Care Document ---
Author Name Unknown Organization [facility] Address [address] [place] [address]- Care Team Providers Care Automation Technologist Name Role Phone Anum SOL, Marlene Somers Primary Care Physician Encounter [facility] Date(s): 08/16/22 - 09/15/22 [facility] [address]- Attending Physician: Gerson Elam Admitting Physician: AdmGerson bragg Referring Physician: AdmtrGerson Allergies, Adverse Reactions, Alerts Substance Reaction Severity Status penicillin 1 Active morphine severe headaches Active 1itchy reaction Immunizations Given and Recorded Vaccine Date Status Refusal Reason [id number] 12y+ bivalent booster vax 01/17/22 Given zoster vaccine, inactivated 12/09/21 Recorded zoster vaccine, inactivated 08/22/21 Recorded SARS-CoV-2 (COVID-19) [...] 05/04/17 Given tetanus/diphtheria/pertussis, acel(Tdap) 06/26/07 Recorded Medications Albuterol (Eqv-Proventil HFA) 90 mcg/inh inhalation aerosol 2 puffs, Inhalation, Every 6 hours, # 6.7 Gm, 1 Refills, Maintenance, 02/18/22 18:02:00 EST, [facility] #[id number], Partial fill upon patient request if the prescription is for a schedule II opioid drug., 173, cm, 02/03/22 8:25:00 EDT, Height Start Date: 02/18/22 Stop Date: 04/19/22 Status: Ordered Blood Pressure Monitor ICD 10 code: I10 length of use 12 months, dispense #1 Blood Pressure Monitor ICD 10 code: I10 length of use 12 months, dispense #1, See Instructions, # 1each, Refills 0, Tot. Refills 0, Maintenance, Blood Pressure Monitor Dispense #1 Length of use 12 months ICD 10 code: I10, 01/17/22 11:55:00 EDT,... Start Date: 01/17/22 Status: Ordered busPIRone 7.5 mg oral tablet 1 tablet = 7.5 mg, By Mouth, 3 times a day, # 90 tablet, 0 Refills, Maintenance, 09/24/18 10:21:08 EDT, Tablet Start Date: 09/24/18 Status: Ordered cetirizine 5 mg oral tablet = 5 mg, By Mouth, Daily, # 30 tablet, 1 Refills, Maintenance, 01/17/22 11:44:00 EDT, [facility] #[id number], Partial fill upon patient request if the prescription is for a schedule II opioid drug., 173, cm, 01/17/22 10:44:00 EDT, Height Start Date: 01/17/22 Status: Ordered estradiol 0.1 mg/g vaginal cream = 1 Gm, Vaginally, Daily at bedtime, # 30 Gm, 1 Refills, Maintenance, 05/30/22 13:40:00 EST, [facility], Partial fill upon patient request if the prescription is for a schedule IIopioid drug., 173, cm, 05/30/22 13:16:00 EST, [facility]... Start Date: 05/30/22 Status: Ordered Flonase 50 mcg/inh nasal spray 1 sprays, Nares, Both, Daily in AM, # 16 Gm, 1 Refills, Maintenance, 01/17/22 11:44:00 EDT, [place], [facility] #[id number], Partial fill upon patient request if the prescription is for a scheduleII opioid drug., 1 sprays Nares, Both Daily in AM,... Start Date: 01/17/22 Status: Ordered lamotrigine 100 mg oral tablet 200 mg, 2, tablet, By Mouth, Daily, Refills 0, Maintenance, 02/01/18 13:56:12 EDT Start Date: 02/01/18 Status: Ordered left knee brace left knee brace, See Instructions, # 1 each, Refills 0, Tot. Refills 0, Maintenance, left knee brace, 09/24/18 10:56:02 EDT, Compound Start Date: 09/24/18 Status: Ordered levothyroxine 0.088 mg oral tablet 1 tablet = 88 mcg, By Mouth, Daily, New dose please start taking and stop taking old prescription Take on an empty stomach as a single daily dose before breakfast, # 30 tablet, 1 Refills, Maintenance, 09/08/22 13:13:00 EDT, Tablet, [facility]. Start Date: 09/08/22 Status: Ordered levothyroxine 0.1 mg oral tablet 1 tablet, By Mouth, Daily, # 30 tablet, 0 Refills, Maintenance, 01/14/22 10:22:00 EDT, [facility] #[id number], 173, cm, 10/21/21 13:31:00 EDT, Height Start Date: 01/14/22 Status: Ordered losartan 25 mg oral tablet 25 mg, 1, tablet, By Mouth, Daily, # 30 tablet, Refills 5, Tot. Refills 5, Maintenance, 06/06/22 8:50:00 EST, Route to Pharmacy Electronically, [facility] #[id number], Partial fill upon patient request if the prescription is for a schedule II opi... Start Date: 06/06/22 Status: Ordered Lubricant Lubricant, See Instructions, # 3 each, Refills 2, Tot. Refills 2, Maintenance, To be used with intercourse Any brand as per pt preference, 05/12/22 9:27:00 EST, Supply, 173, cm, 05/12/22 8:42:00 EST,Height Start Date: 05/12/22 Status: Ordered Symbicort 80mcg/4.5mcg Inhaler See Instructions, Use 2 puffs every 4-6 hours as needed for cough or respiratory symptoms, does notuse more than 12 puffs in 24 hours, if severe symptoms can use 2 puffs every 20 minutes for 1 minute only, # 1 each, Refills 1, Tot. Refills 1, Mainten... Start Date: 02/03/22 Status: Ordered Vaginal moisturizer Vaginal moisturizer, See Instructions, # 2 each, Refills 4, Tot. Refills 4, Maintenance, To be useddaily prn vaginal dryness Please allow for any brand per pt preference, 05/12/22 9:30:00 EST, Supply, 173, cm, 05/12/22 8:42:00 EST, Height Start Date: 05/12/22 Status: Ordered venlafaxine 37.5 mg oral capsule, extended release 37.5 mg, 1, capsule, By Mouth, Daily, # 30 capsule, Refills 0, Tot. Refills 0, Maintenance, 05/30/22 13:43:00 EST, Route to Pharmacy Electronically, [facility], Partial fill upon patient request if the prescription is for a schedul... Start Date: 05/30/22 Status: Ordered Voltaren 1% topical gel 1 application, Topically, 4 times a day, PRN for pain, # 100 Gm, 3 Refills, Maintenance, 05/12/22 9:16:00 EST, Gel, [facility] #[id number], Partial fill upon patient request if the prescription is for a schedule II opioid drug., 1 application Top... Start Date: 05/12/22 Stop Date: 01/07/23 Status: Ordered Wellbutrin By Mouth, 0 Refills, Maintenance, 05/26/14 15:11:48 Start Date: 05/26/14 Status: Ordered zolpidem 5 mg oral tablet 2 tablet = 10 mg, By Mouth, Daily at bedtime, PRN for sleep, 0 Refills, Maintenance, 09/24/18 10:20:55 EDT, Tablet Start Date: 09/24/18 Status: Ordered Problem List Condition Confirmation Course Effective Dates Status H ealth Status Informant ASCUS, HPV pos Confirmed Active Anxiety Confirmed Active Bipolar illness Confirmed Active Depression Confirmed Active Family history of colon cancer 1 Confirmed Active Graves disease s/p thyroidectomy Confirmed Active 1grandfaterh,a ge 60 Social History Social History Type Response Smoking Status Never (less than 100 in lifetime) entered on: 05/12/22 Sex Patient Care team information Care Team Personnel Name: Anum SOL, Marlene Somers Position: [facility] Physician - Primary Care Member Role: PCP Address: Address: [address] [place] [address]- Care Team Related Persons Name: JUAN CARO Address: home [address] [place] [address] Name: CORONA ACEVEDO Address: home [address] [place] [address]
--- OUTSIDE RECORDS SUMMARY | 2022-10-23 16:18 | XMS_ITS | Continuity of Care Document ---
Author Name Unknown Organization [facility] Address [address] [place] [address]- Care Team Providers Care Liquid Loader Name Role Phone Macrina Davidson DO Primary Care Physician ( [phone] Encounter [facility] Date(s): 02/17/22 - 03/19/[address] [address] Allergies, Adverse Reactions, Alerts Substance Reaction Severity Status penicillin 1 Active morphine severe headaches Active 1itchy reaction Immunizations Given and Recorded Vaccine Date Status Refusal Reason [id number] 12y+ bivalent booster vax 01/17/22 Given zoster [...] 6.7 Gm, 1 Refills, Maintenance, 02/18/22 18:02:00 [id number], Partial fill upon patient request if the [...] tablet, 1 Refills, Maintenance, 01/17/22 11:44:00 EDT, Tablet, [facility] #[id number], Partial fill upon patient request if the prescription is for a schedule II opioid drug., 173, cm, 01/17/22 10:44:00 EDT, Height Start Date: 01/17/22 Status: Ordered Flonase 50 mcg/inh nasal spray 1 sprays, Nares, Both, Daily in AM, # 16 Gm, 1 Refills, Maintenance, 01/17/22 11:44:00 EDT, [place], [facility] #[id number], Partial fill upon patient request if the [...] daily dose before breakfast, # 30 tablet, 3 Refills, Maintenance, 01/19/22 17:45:00 EDT, Tablet, [facility] Start Date: 01/19/22 Status: Ordered levothyroxine 0.1 mg oral tablet 1 tablet, By Mouth, Daily, # 30 tablet, 0 Refills, Maintenance, 01/14/22 10:22:00 EDT, [facility] #[id number], 173, cm, 10/21/21 13:31:00 EDT, Height Start Date: 01/14/22 Status: Ordered losartan 25 mg oral tablet 25 mg, 1, tablet, By Mouth, Daily, # 30 tablet, Refills 3, Tot. Refills 3, Maintenance, 01/26/22 8:41:00 EDT, Route to Pharmacy Electronically, [facility] #[id number], Partial fill upon patient request if the prescription is for a schedule II opi... Start Date: 01/26/22 Status: Ordered Symbicort 80mcg/4.5mcg Inhaler See Instructions, Use 2 puffs every 4-6 hours as needed for cough or respiratory symptoms, does notuse more than 12 puffs in 24 hours, if severe symptoms can use 2 puffs every 20 minutes for 1 minute only, # 1 each, Refills 1, Tot. Refills 1, Mainten... Start Date: 02/03/22 Status: Ordered Wellbutrin By Mouth, 0 Refills, [...] (less than 100 in lifetime) entered on: 02/03/22 Sex Patient Care team information Care Team Personnel Name: Macrina Davidson DO Position: S Resident Member Role: PCP Address: Address: [address] [place] [address]- Care Team Related Persons Name: JUAN CARO Address: home [address] [place] [address] Name: CORONA ACEVEDO Address: home [address] [place] [address]
--- OUTSIDE RECORDS SUMMARY | 2022-10-23 16:18 | XMS_ITS | Continuity of Care Document ---
Author Name Unknown Organization [facility] Address [address] [place] [address]- Care Team Providers Care Clod Puller Name Role Phone Chavo Rivas DO Primary Care Physician Encounter [facility] Date(s): 01/03/20 - 02/08/20 [facility] [address] [place], [place] [address] Attending Physician: Not on Staff, Attending MD Allergies, Adverse Reactions, Alerts Substance Reaction Severity [...] 11 Refills, Maintenance, 11/12/19 11:04:00 EDT, Tablet, [facility] #[id number], 173, cm, 08/13/19 8:36:00 EDT, Height, 75.2, kg, 02/28/18 7:07:00 EST, Dry Weight Start Date: 11/12/19 Status: Ordered raNITIdine 300 mg oral capsule See Instructions, # 30 capsule, Refills 2 Tot. Refills 2, TAKE 1 CAPSULE BY MOUTH DAILY AT BEDTIME,[facility] #[id number] Start Date: 01/23/19 Status: Ordered Wellbutrin By [...]
--- OUTSIDE RECORDS SUMMARY | 2022-10-23 16:18 | XMS_ITS | Continuity of Care Document ---
Author Name Unknown Organization [facility] Address [address] [place] [address]- Care Team Providers Care Roller Mill Operator Name Role Phone Macrina Davidson DO Primary Care Physician En[id number] Date(s): 06/27/22 - 07/27/22 [facility] [address] [place] [address]- Attending Physician: Gerson Elam Admitting Physician: AdmGerson bragg Referring Physician: AdmtrGerson Allergies, Adverse Reactions, Alerts Substance Reaction Severity Status penicillin 1 Active morphine severe headaches Active 1itchy reaction Immunizations Given and Recorded Vaccine Date Status Refusal Reason [id number] 12y+ bivalent booster vax 01/17/22 Given zoster [...] Gm, 1 Refills, Maintenance, 02/18/22 18:02:00 EST, [facility] #[id number], Partial fill upon patient request if the [...] 1 Refills, Maintenance, 01/17/22 11:44:00 EDT, Tablet, [facility] #[id number], Partial fill upon patient request if the prescription is for a schedule II opioid drug., 173, cm, 01/17/22 10:44:00 EDT, Height Start Date: 01/17/22 Status: Ordered estradiol 0.1 mg/g vaginal cream = 1 Gm, Vaginally, Daily at bedtime, # 30 Gm, 1 Refills, Maintenance, 05/30/22 13:40:00 EST, [facility], Partial fill upon patient request if the prescription is for a schedule IIopioid drug., 173, cm, 05/30/22 13:16:00 EST, [facility]... Start Date: 05/30/22 Status: Ordered Flonase 50 mcg/inh nasal spray 1 sprays, Nares, Both, Daily in AM, # 16 Gm, 1 Refills, Maintenance, 01/17/22 11:44:00 EDT, [place], [facility] #[id number], Partial fill upon patient request if the [...] breakfast, # 30 tablet, 3 Refills, Maintenance, 05/12/22 9:21:00 EST, Tablet, [facility]... Start Date: 05/12/22 Status: Ordered levothyroxine 0.1 mg oral tablet 1 tablet, By Mouth, Daily, # 30 tablet, 0 Refills, Maintenance, 01/14/22 10:22:00 EDT, [facility] #[id number], 173, cm, 10/21/21 13:31:00 EDT, Height Start Date: 01/14/22 Status: Ordered losartan 25 mg oral tablet 25 mg, 1, tablet, By Mouth, Daily, # 30 tablet, Refills 5, Tot. Refills 5, Maintenance, 06/06/22 8:50:00 EST, Route to Pharmacy Electronically, [facility] #[id number], Partial fill upon patient request if the [...] 05/30/22 13:43:00 EST, Route to Pharmacy Electronically, [facility], Partial fill upon patient request if the prescription is for a schedul... Start Date: 05/30/22 Status: Ordered Voltaren 1% topical gel 1 application, Topically, 4 times a day, PRN for pain, # 100 Gm, 3 Refills, Maintenance, 05/12/22 9:16:00 EST, Gel, [facility] #[id number], Partial fill upon patient request if the [...] S Resident Member Role: PCP Address: Address: [address] [place] [address]- Care Team Related Persons Name: JUAN CARO Address: home [address] [place] [address] Name: CORONA ACEVEDO Address: home [address] [place] [address]
--- OUTSIDE RECORDS SUMMARY | 2022-10-23 16:18 | XMS_ITS | Continuity of Care Document ---
Author Name Unknown Organization [facility] Address [address] [place] [address]- Care Team Providers Care Live Truck Operator Name Role Phone Ila Grant MD Primary Care Physician [phone] Encounter [facility] Date(s): 08/25/21 - 09/24/21 [facility] [address] [place], [place] [address] Allergies, Adverse Reactions, Alerts Substance Reaction Severity [...] mcg, By Mouth, Daily, # 30 tablet, 0 Refills, Maintenance, 07/28/21 11:23:00 EDT, Tablet, [facility] #[id number], 173, cm, 07/12/21 8:39:00 EDT, Height Start Date: 07/28/21 Status: Ordered raNITIdine 300 mg oral capsule See Instructions, # 30 capsule, Refills 2 Tot. Refills 2, TAKE 1 CAPSULE BY MOUTH DAILY AT BEDTIME,[facility] #[id number] Start Date: 01/23/19 Status: Ordered Wellbutrin By [...]
--- OUTSIDE RECORDS SUMMARY | 2022-10-23 16:18 | XMS_ITS | Continuity of Care Document ---
Author Name Unknown Organization [facility] Address [address] [place] [address]- Care Team Providers Care Force Dispatcher Name Role Phone Joce SOL, Ruthy Primary Care Physician [place] [facility] [place] Date(s): 08/25/21 - 10/20/21 [facility] [address] [place], [place] [address] Attending Physician: Drew Jean Allergies, Adverse Reactions, Alerts Substance Reaction Severity [...] 1 Refills, Maintenance, 10/12/21 12:09:00 EDT, Tablet, [facility] #[id number], 173, cm, 07/12/21 8:39:00 EDT, Height Start Date: 10/12/21 Status: Ordered raNITIdine 300 mg oral capsule See Instructions, # 30 capsule, Refills 2 Tot. Refills 2, TAKE 1 CAPSULE BY MOUTH DAILY AT BEDTIME,[facility] #[id number] Start Date: 01/23/19 Status: Ordered Wellbutrin By [...]
--- OUTSIDE RECORDS SUMMARY | 2022-10-23 16:18 | XMS_ITS | Continuity of Care Document ---
Author Name Unknown Organization [facility] Address [address] [place] [address]- Care Team Providers Care Spring Up Supervisor Name Role Phone Ila Grant MD Primary Care Physician [place] [facility] [place] 08/25/21 - 09/24/21 [facility] [address] [place], [place] [address] Attending Physician: Not on Staff, Attending MD [...] 0 Refills, Maintenance, 07/28/21 11:23:00 EDT, Tablet, [facility] #[id number], 173, cm, 07/12/21 8:39:00 EDT, Height Start Date: 07/28/21 Status: Ordered raNITIdine 300 mg oral capsule See Instructions, # 30 capsule, Refills 2 Tot. Refills 2, TAKE 1 CAPSULE BY MOUTH DAILY AT BEDTIME,[facility] #[id number] Start Date: 01/23/19 Status: Ordered Wellbutrin By [...]
--- OUTSIDE RECORDS SUMMARY | 2022-10-23 16:18 | XMS_ITS | Continuity of Care Document ---
Author Name Unknown Organization [facility] Address [address] [place] [address]- Care Team Providers Care Loom Inspector Name Role Phone Ila Grant MD Primary Care Physician Encounter [facility] Date(s): 08/25/21 - 09/24/21 [facility] [address] [place], [place] [address] Attending Physician: Admyemi, Gerson Admitting Physician: Admtr, Gerson Referring Physician: Admtr, Ar8 Allergies, Adverse Reactions, [...] 0 Refills, Maintenance, 07/28/21 11:23:00 EDT, Tablet, [facility] #[id number], 173, cm, 07/12/21 8:39:00 EDT, Height Start Date: 07/28/21 Status: Ordered raNITIdine 300 mg oral capsule See Instructions, # 30 capsule, Refills 2 Tot. Refills 2, TAKE 1 CAPSULE BY MOUTH DAILY AT BEDTIME,[facility] #[id number] Start Date: 01/23/19 Status: Ordered Wellbutrin By [...]
--- OUTSIDE RECORDS SUMMARY | 2022-10-23 16:18 | XMS_ITS | Continuity of Care Document ---
Author Name Unknown Organization [facility] Address [address] [place] [address]- Care Team Providers Care Repair Manager Name Role Phone Macrina Davidson DO Primary Care Physician [place] [facility] [place](s): 07/14/22 - 08/13/[address] [address]- Attending Physician: AdmGerson bragg Admitting Physician: AdmtrGerson Referring Physician: Admtr, Ar8 Allergies, Adverse Reactions, Alerts Substance Reaction Severity Status penicillin 1 Active morphine severe headaches Active 1itchy reaction Immunizations Given and Recorded Vaccine Date Status Refusal Reason [id number] 12y+ bivalent booster vax 01/17/22 Given zoster [...] Gm, 1 Refills, Maintenance, 02/18/22 18:02:00 EST, [facility] #[id number], Partial fill upon patient request if the [...] tablet, 1 Refills, Maintenance, 01/17/22 11:44:00 EDT, [facility] #[id number], Partial fill upon patient request if the prescription is for a schedule II opioid drug., 173, cm, 01/17/22 10:44:00 EDT, Height Start Date: 01/17/22 Status: Ordered estradiol 0.1 mg/g vaginal cream = 1 Gm, Vaginally, Daily at bedtime, # 30 Gm, 1 Refills, Maintenance, 05/30/22 13:40:00 EST, [facility], Partial fill upon patient request if the prescription is for a schedule IIopioid drug., 173, cm, 05/30/22 13:16:00 EST, [facility]... Start Date: 05/30/22 Status: Ordered Flonase 50 mcg/inh nasal spray 1 sprays, Nares, Both, Daily in AM, # 16 Gm, 1 Refills, Maintenance, 01/17/22 11:44:00 EDT, [place], [facility] #[id number], Partial fill upon patient request if the [...] 3 Refills, Maintenance, 05/12/22 9:21:00 EST, Tablet, [facility]... Start Date: 05/12/22 Status: Ordered levothyroxine 0.1 mg oral tablet 1 tablet, By Mouth, Daily, # 30 tablet, 0 Refills, Maintenance, 01/14/22 10:22:00 EDT, [facility] #[id number], 173, cm, 10/21/21 13:31:00 EDT, Height Start Date: 01/14/22 Status: Ordered losartan 25 mg oral tablet 25 mg, 1, tablet, By Mouth, Daily, # 30 tablet, Refills 5, Tot. Refills 5, Maintenance, 06/06/22 8:50:00 EST, Route to Pharmacy Electronically, [facility] #[id number], Partial fill upon patient request if the [...] 05/30/22 13:43:00 EST, Route to Pharmacy Electronically, [facility], Partial fill upon patient request if the prescription is for a schedul... Start Date: 05/30/22 Status: Ordered Voltaren 1% topical gel 1 application, Topically, 4 times a day, PRN for pain, # 100 Gm, 3 Refills, Maintenance, 05/12/22 9:16:00 EST, Gel, [facility] #[id number], Partial fill upon patient request if the [...] S Resident Member Role: PCP Address: Address: [address] [place] [address]- Care Team Related Persons Name: JUAN CARO Address: home [address] [place] [address] Name: CORONA ACEVEDO Address: home [address] [place] [address]
--- OUTSIDE RECORDS SUMMARY | 2022-10-23 16:18 | XMS_ITS | Continuity of Care Document ---
Author Name Unknown Organization [facility] Address [address] [place] [address]- Care Team Providers Care School Bus Monitor Name Role Phone Macrina Davidson DO Primary Care Physician Encounter [facility] Date(s): 06/27/22 - 07/27/22 [facility] [place] [address]- [place] Allergies, Adverse Reactions, Alerts Substance Reaction Severity Status penicillin 1 Active morphine severe headaches Active 1itchy reaction Immunizations Given and Recorded Vaccine Date Status Refusal Reason [id number] 12y+ bivalent booster vax 01/17/22 Given zoster [...] Gm, 1 Refills, Maintenance, 02/18/22 18:02:00 EST, [facility] #[id number], Partial fill upon patient request if the [...] 1 Refills, Maintenance, 01/17/22 11:44:00 EDT, Tablet, [facility] #[id number], Partial fill upon patient request if the prescription is for a schedule II opioid drug., 173, cm, 01/17/22 10:44:00 EDT, Height Start Date: 01/17/22 Status: Ordered estradiol 0.1 mg/g vaginal cream = 1 Gm, Vaginally, Daily at bedtime, # 30 Gm, 1 Refills, Maintenance, 05/30/22 13:40:00 EST, [facility], Partial fill upon patient request if the prescription is for a schedule IIopioid drug., 173, cm, 05/30/22 13:16:00 EST, [facility]... Start Date: 05/30/22 Status: Ordered Flonase 50 mcg/inh nasal spray 1 sprays, Nares, Both, Daily in AM, # 16 Gm, 1 Refills, Maintenance, 01/17/22 11:44:00 EDT, [place], [facility] #[id number], Partial fill upon patient request if the [...] 3 Refills, Maintenance, 05/12/22 9:21:00 EST, Tablet, [facility]... Start Date: 05/12/22 Status: Ordered levothyroxine 0.1 mg oral tablet 1 tablet, By Mouth, Daily, # 30 tablet, 0 Refills, Maintenance, 01/14/22 10:22:00 EDT, [facility] #[id number], 173, cm, 10/21/21 13:31:00 EDT, Height Start Date: 01/14/22 Status: Ordered losartan 25 mg oral tablet 25 mg, 1, tablet, By Mouth, Daily, # 30 tablet, Refills 5, Tot. Refills 5, Maintenance, 06/06/22 8:50:00 EST, Route to Pharmacy Electronically, [facility] #[id number], Partial fill upon patient request if the [...] 05/30/22 13:43:00 EST, Route to Pharmacy Electronically, [facility], Partial fill upon patient request if the prescription is for a schedul... Start Date: 05/30/22 Status: Ordered Voltaren 1% topical gel 1 application, Topically, 4 times a day, PRN for pain, # 100 Gm, 3 Refills, Maintenance, 05/12/22 9:16:00 EST, Gel, [facility] #[id number], Partial fill upon patient request if the [...] S Resident Member Role: PCP Address: Address: [address] [place] [address]- Care Team Related Persons Name: JUAN CARO Address: home [address] [place] [address] Name: CORONA ACEVEDO Address: home [address] [place] [address]
--- OUTSIDE RECORDS SUMMARY | 2022-10-23 16:18 | XMS_ITS | Continuity of Care Document ---
Author Name Unknown Organization [facility] Address [address] [place] [address]- Care Team Providers Care Director Of Technology Name Role Phone Chavo Rivas DO Primary Care Physician [phone] [facility]counter [facility] Date(s): 01/03/20 - 02/02/20 [facility] [address] [place] [address]- [facility] Allergies, Adverse Reactions, Alerts Substance Reaction Severity [...] 11 Refills, Maintenance, 11/12/19 11:04:00 EDT, Tablet, [facility] #[id number], 173, cm, 11/13/18 8:36:00 EDT, Height, 75.2, kg, 02/28/18 7:07:00 EST, Dry Weight Start Date: 11/12/19 Status: Ordered raNITIdine 300 mg oral capsule See Instructions, # 30 capsule, Refills 2 Tot. Refills 2, TAKE 1 CAPSULE BY MOUTH DAILY AT BEDTIME,[facility] #[id number] Start Date: 01/23/19 Status: Ordered Wellbutrin By [...]
--- OUTSIDE RECORDS SUMMARY | 2022-10-23 16:18 | XMS_ITS | Continuity of Care Document ---
Author Name Unknown Organization [facility] Address [address] [place] [address]- Care Team Providers Care Car Audio Installer Name Role Phone Juanita SOL, Ila Primary Care Physician [facility]counter [facility] Date(s): 11/19/20 - 12/19/20 [facility] [address] [place], [place] [address] Allergies, Adverse Reactions, Alerts Substance Reaction [...] Daily, # 30 tablet, 0 Refills, Maintenance, 11/26/20 15:15:00 EDT, Tablet, [facility] #[id number], 173, cm, 08/14/20 8:12:00 EDT, Height Start Date: 11/26/20 Status: Ordered raNITIdine 300 mg oral capsule See Instructions, # 30 capsule, Refills 2 Tot. Refills 2, TAKE 1 CAPSULE BY MOUTH DAILY AT BEDTIME,[facility] #[id number] Start Date: 01/23/19 Status: Ordered Wellbutrin By [...]
--- OUTSIDE RECORDS SUMMARY | 2022-10-23 16:18 | XMS_ITS | Continuity of Care Document ---
Author Name Unknown Organization [facility] Address [address] [place] [address]- Care Team Providers Care Towerman Name Role Phone Chavo Rivas DO Primary Care Physician [phone] Encounter [facility] Date(s): 01/09/20 - 02/08/20 [facility] [address] [place], [place] [address] Allergies, Adverse Reactions, Alerts Substance [...] 11 Refills, Maintenance, 11/12/19 11:04:00 EDT, Tablet, [facility] #[id number], 173, cm, 11/13/18 8:36:00 EDT, Height, 75.2, kg, 02/28/18 7:07:00 EST, Dry Weight Start Date: 11/12/19 Status: Ordered raNITIdine 300 mg oral capsule See Instructions, # 30 capsule, Refills 2 Tot. Refills 2, TAKE 1 CAPSULE BY MOUTH DAILY AT BEDTIME,[facility] #[id number] Start Date: 01/23/19 Status: Ordered Wellbutrin By [...]
--- OUTSIDE RECORDS SUMMARY | 2022-10-23 16:18 | XMS_ITS | Continuity of Care Document ---
Author Name Unknown Organization [facility] Address [address] [place] [address]- Care Team Providers Care Profiling Machine Operator Name Role Phone Juanita SOL, Ila Primary Care Physician [facility]counter [facility] Date(s): 11/27/20 - 12/27/20 [facility] [address] [place], [place] [address] Allergies, Adverse Reactions, Alerts Substance Reaction [...] 0 Refills, Maintenance, 11/26/20 15:15:00 EDT, Tablet, [facility] #[id number], 173, cm, 08/14/20 8:12:00 EDT, Height Start Date: 11/26/20 Status: Ordered raNITIdine 300 mg oral capsule See Instructions, # 30 capsule, Refills 2 Tot. Refills 2, TAKE 1 CAPSULE BY MOUTH DAILY AT BEDTIME,[facility] #[id number] Start Date: 01/23/19 Status: Ordered Wellbutrin By [...]
--- OUTSIDE RECORDS SUMMARY | 2022-10-23 16:18 | XMS_ITS | Continuity of Care Document ---
Author Name Unknown Organization [facility] Address [address] [place] [address]- Care Team Providers Care Compliance Counsel Name Role Phone Macrina Davidson DO Primary Care Physician Encounter [facility] [place] Date(s): 08/09/22 - 09/08/22 [facility] [place] [address]- [place] Allergies, Adverse Reactions, Alerts Substance Reaction Severity Status penicillin 1 Active morphine severe headaches Active 1itchy reaction Immunizations Given and Recorded Vaccine Date Status Refusal Reason [id number] 12y+ bivalent booster vax 01/17/22 Given zoster [...] 6.7 Gm, 1 Refills, Maintenance, 02/18/22 18:02:00 [facility] #[id number], Partial fill upon patient request if the [...] 1 Refills, Maintenance, 01/17/22 11:44:00 EDT, Tablet, [facility] #[id number], Partial fill upon patient request if the prescription is for a schedule II opioid drug., 173, cm, 01/17/22 10:44:00 EDT, Height Start Date: 01/17/22 Status: Ordered estradiol 0.1 mg/g vaginal cream = 1 Gm, Vaginally, Daily at bedtime, # 30 Gm, 1 Refills, Maintenance, 05/30/22 13:40:00 EST, [facility], Partial fill upon patient request if the prescription is for a schedule IIopioid drug., 173, cm, 05/30/22 13:16:00 EST, [facility]... Start Date: 05/30/22 Status: Ordered Flonase 50 mcg/inh nasal spray 1 sprays, Nares, Both, Daily in AM, # 16 Gm, 1 Refills, Maintenance, 01/17/22 11:44:00 EDT, [place], [facility] #[id number], Partial fill upon patient request if the [...] tablet, 0 Refills, Maintenance, 01/14/22 10:22:00 EDT, [facility] #[id number], 173, cm, 10/21/21 13:31:00 EDT, Height Start Date: 01/14/22 Status: Ordered losartan 25 mg oral tablet 25 mg, 1, tablet, By Mouth, Daily, # 30 tablet, Refills 5, Tot. Refills 5, Maintenance, 06/06/22 8:50:00 EST, Route to Pharmacy Electronically, [facility] #[id number], Partial fill upon patient request if the [...] 05/30/22 13:43:00 EST, Route to Pharmacy Electronically, [facility], Partial fill upon patient request if the prescription is for a schedul... Start Date: 05/30/22 Status: Ordered Voltaren 1% topical gel 1 application, Topically, 4 times a day, PRN for pain, # 100 Gm, 3 Refills, Maintenance, 05/12/22 9:16:00 EST, Gel, [facility] #[id number], Partial fill upon patient request if the [...] Resident Member Role: PCP Address: Address: [address] [place] [address]- Care Team Related Persons Name: JUAN CARO Address: home [address] [place] [address] Name: CORONA ACEVEDO Address: home [address] [place] [address]
--- OUTSIDE RECORDS SUMMARY | 2022-10-23 16:18 | XMS_ITS | Continuity of Care Document ---
Author Name Unknown Organization [facility] Address [address] [place] [address]- Care Team Providers Care Fiber Picker Name Role Phone Ila Grant MD Primary Care Physician [phone] Encounter [facility] [id number] Date(s): 07/12/21 - 08/11/[address] [address]- Attending Physician: Gerson Elam Admitting Physician: AdmGerson bragg Referring Physician: Admtr, ArKelly Allergies, Adverse Reactions, Alerts Substance Reaction Severity [...] 0 Refills, Maintenance, 07/28/21 11:23:00 EDT, Tablet, [facility] #55169, 173, cm, 07/12/21 8:39:00 EDT, Height Start Date: 07/28/21 Status: Ordered raNITIdine 300 mg oral capsule See Instructions, # 30 capsule, Refills 2 Tot. Refills 2, TAKE 1 CAPSULE BY MOUTH DAILY AT BEDTIME,[facility] #[id number] Start Date: 01/23/19 Status: Ordered Wellbutrin By [...]
--- OUTSIDE RECORDS SUMMARY | 2022-10-23 16:18 | XMS_ITS | Continuity of Care Document ---
Author Name Unknown Organization [facility] Address [address] [place] [address]- Care Team Providers Care Rad Technologist Name Role Phone Chavo Rivas DO Primary Care Physician [facility] Date(s): 01/09/20 - 02/08/20 [facility] [address] [place], [place] [address] Attending Physician: Gerson Elam Admitting Physician: AdmGerson [...] 11 Refills, Maintenance, 11/12/19 11:04:00 EDT, Tablet, [facility] #13235, 173, cm, 11/13/18 8:36:00 EDT, Height, 75.2, kg, 02/28/18 7:07:00 EST, Dry Weight Start Date: 11/12/19 Status: Ordered raNITIdine 300 mg oral capsule See Instructions, # 30 capsule, Refills 2 Tot. Refills 2, TAKE 1 CAPSULE BY MOUTH DAILY AT BEDTIME,[facility] #[id number] Start Date: 01/23/19 Status: Ordered Wellbutrin By [...]
--- OUTSIDE RECORDS SUMMARY | 2022-10-23 16:18 | XMS_ITS | Continuity of Care Document ---
Author Name Unknown Organization [facility] ter Address [address] [place] [address]- Care Team Providers Care Gallery Or Museum Attendant Name Role Phone Ila Grant MD Primary Care Physician Encounter [facility] Date(s): 03/15/21 - 03/16/[address] [address]- Discharge Disposition: A-D/C Walkout Attending Physician: Not on Staff, Attending MD Admitting Physician: Not on Staff, Admitting MD Referring Physician: Not on Staff, Referring MD Allergies, Adverse Reactions, Alerts Substance Reaction [...] mcg, By Mouth, Daily, # 30 tablet, 6 Refills, Maintenance, 01/01/21 11:12:00 EDT, Tablet, [facility] #[id number], 173, cm, 08/14/20 8:12:00 EDT, Height Start Date: 01/01/21 Status: Ordered raNITIdine 300 mg oral capsule See Instructions, # 30 capsule, Refills 2 Tot. Refills 2, TAKE 1 CAPSULE BY MOUTH DAILY AT BEDTIME,[facility] #[id number] Start Date: 01/23/19 Status: Ordered Wellbutrin By [...] disease s/p thyroidectomy(Confirmed) Active 1grandfaterh,a ge 60 Vital Signs Most recent to oldest [Reference Range]: 1 Oxygen Saturation [94-100 %] 100 % (03/15/21 6:58 PM) Pulse Rate [55-90 bpm] 89 bpm (03/15/21 6:58 PM) Blood Pressure [90-138/55-84 mm Hg] 158/ 90mm Hg *H* (03/15/21 6:58 PM) Respiratory Rate [16-30 br/min] 16 br/mi n (03/15/21 6:58 PM) Temperature [96.8-100.4 DegF] 97.8 DegF (03/15/21 6:58 PM) Mode of Delivery (Oxygen) Room air (03/15/21 6:58 PM) Blood pressure sites Arm, left (03/15/21 6:58 PM) Temperature Route Oral (03/15/21 6:58 PM) Social History Social History Type Response Smoking Status Never smoker entered on: 01/30/14 Sex
--- OUTSIDE RECORDS SUMMARY | 2022-10-23 16:18 | XMS_ITS | Continuity of Care Document ---
Author Name Unknown Organization [facility] Address [address] [place] [address]- Care Team Providers Care Engravings Polisher Name Role Phone Juanita SOL, Ila Primary Care Physician [facility] Date(s): 06/30/21 - 07/30/21 [facility] [address] [place], [place] [address] Allergies, Adverse Reactions, Alerts Substance Reaction [...] 0 Refills, Maintenance, 07/28/21 11:23:00 EDT, Tablet, [facility] #[id number], 173, cm, 07/12/21 8:39:00 EDT, Height Start Date: 07/28/21 Status: Ordered raNITIdine 300 mg oral capsule See Instructions, # 30 capsule, Refills 2 Tot. Refills 2, TAKE 1 CAPSULE BY MOUTH DAILY AT BEDTIME,[facility] #[id number] Start Date: 01/23/19 Status: Ordered Wellbutrin By [...]
--- OUTSIDE RECORDS SUMMARY | 2022-10-23 16:18 | XMS_ITS | Continuity of Care Document ---
Author Name Unknown Organization [facility] Address [address] [place] [address]- Care Team Providers Care Mannequin Mounter Name Role Phone Chavo Rivas DO Primary Care Physician [facility]counter [facility] Date(s): 08/12/20 - 09/11/20 [facility] [address] [place] [address]- Allergies, Adverse Reactions, Alerts Substance Reaction Severity [...] 11 Refills, Maintenance, 11/12/19 11:04:00 EDT, Tablet, [facility] #[id number], 173, cm, 11/13/18 8:36:00 EDT, Height, 75.2, kg, 02/28/18 7:07:00 EST, Dry Weight Start Date: 11/12/19 Status: Ordered raNITIdine 300 mg oral capsule See Instructions, # 30 capsule, Refills 2 Tot. Refills 2, TAKE 1 CAPSULE BY MOUTH DAILY AT BEDTIME,[facility] #[id number] Start Date: 01/23/19 Status: Ordered Wellbutrin By [...] 1 Active Graves disease s/p thyroidectomy(Confirmed) Active 1grandftim,a ge 58 Social History Social History Type Response Smoking Status Never smoker entered on: 01/30/14 Sex
--- OUTSIDE RECORDS SUMMARY | 2022-10-23 16:18 | XMS_ITS | Continuity of Care Document ---
Author Name Unknown Organization [facility] ter Address [address] [place] [address]- Care Team Providers Care Security Threat Analyst Name Role Phone Chavo Rivas DO Primary Care Physician [phone] Encounter [facility] Date(s): 10/05/20 - 10/05/[address] [address]- Encounter Diagnosis Viral URI(Final) - 10/05/20 Discharge Disposition: A-D/C Home Attending Physician: Leyla Yeboah MD Admitting Physician: Leyla Yeboah MD Referring Physician: Not on Staff, Referring [...] 11 Refills, Maintenance, 11/12/19 11:04:00 EDT, Tablet, [facility] #[id number], 173, cm, 11/13/18 8:36:00 EDT, Height, 75.2, kg, 02/28/18 7:07:00 EST, Dry Weight Start Date: 11/12/19 Status: Ordered raNITIdine 300 mg oral capsule See Instructions, # 30 capsule, Refills 2 Tot. Refills 2, TAKE 1 CAPSULE BY MOUTH DAILY AT BEDTIME,[facility] #[id number] Start Date: 01/23/19 Status: Ordered Wellbutrin By [...] disease s/p thyroidectomy(Confirmed) Active 1grandfaterh,a ge 58 Results Orders for Microbiology Reports Name Date Group A Strep Screen and Culture 10/05/20 Microbiology Reports TEST:Group A Strep Screen and Culture STATUS:Unauthenticated BODY SITE: SOURCE:THROAT COLLECTED DATE/TIME:10/05/20 9:58 AM Group A Strep Screen and Culture SPECIMEN DESCRIPTION : THROAT SWAB SPECIAL REQUESTS : NONE DIRECT EXAM : RAPID GROUP A RESULT IS NEGATIVE, REFER TO CULTURE RESULT. REPORT STATUS : PRELIMINARY REPORT Radiology Reports * Exam Date Time Procedure Performing Provider Status 10/05/20 10:28 AM Chest 2 Views Frontal and Lat Shreee Du; Auth (Verified) Notes: (Chest 2 Views Frontal and Lat) Reason For Exam: Shortness of Breath, Fever;Other: RESULT: Chest 2 Views Frontal and Lat Chest 2 Views Frontal and Lat HX OF PRESENT ILLNESS: pt report fever sore throat and nausea since Monday pt report 100.6 temp last night; Reason: Shortness of Breath, Fever; Clinical Question(s): Pneumonia / Pneumonia COMPARISON: 10/27/2013 FINDINGS: LINES AND TUBES: None. LUNGS AND PLEURA: Clear lungs. Normal pulmonary vascularity. No pleural effusion. No pneumothorax. HEART, MEDIASTINUM AND JANNIE: Heart is normal in size. Normal mediastinal and hilar contour. BONES AND SOFT TISSUES: No acute abnormality. IMPRESSION: No evidence of acute abnormality. WSN: [id number] Ordering Physician: Dhruv Waters Dictated By: Alfred Mccoy MD Dictated Date/Time: 10/05/20 10:48 a Reviewed By: Alfred Mccoy MD Signed By: Alfred Mccoy MD Signed Date/Time: 10/05/20 10:48 am Transcribed By: SPENSER Transcribed Date/Time: 10/05/20 10:47 am Vital Signs Most recent to oldest [Reference Range]: 1 2 Oxygen Saturation [94-100 %] 100 % (10/05/20 8:25 AM) 99 % (10/05/20 8:20 AM) Pulse Rate [55-90 bpm] 99 bpm *H* (10/05/20 8:25 AM) 104 bpm *H* (10/05/20 8:20 AM) Blood Pressure [90-138/55-84 mm Hg] 134/ 88mm Hg (10/05/20 8:25 AM) Respiratory Rate [16-30 br/min] 18 br/mi n (10/05/20 8:25 AM) Temperature [96.8-100.4 DegF] 99.6 DegF (10/05/20 8:25 AM) Mode of Delivery (Oxygen) Room air (10/05/20 8:25 AM) Room air (10/05/20 8:20 AM) Blood pressure sites Arm, left (10/05/20 8:25 AM) Temperature Route Oral (10/05/20 8:25 AM) Social History Social History Type Response Smoking Status Never smoker entered on: 01/30/14 Sex
--- OUTSIDE RECORDS SUMMARY | 2022-10-23 16:18 | XMS_ITS | Continuity of Care Document ---
Author Name Unknown Organization [facility] Address [address] [place] [address]- Care Team Providers Care Telegraph Printer Mechanic Name Role Phone Macrina Davidson DO Primary Care Physician [place] [facility]01[place]22 - 08/10/[address] [address]- Encounter Diagnosis Pain in left shoulder(Final) - Discharge Disposition: A-D/C Home Attending Physician: Guerline Velez MD Admitting Physician: Guerline Velez MD Referring Physician: Suri Luther MD Allergies, Adverse Reactions, Alerts Substance Reaction Severity Status penicillin 1 Active morphine severe headaches Active 1itchy reaction Immunizations Given and Recorded Vaccine Date Status Refusal Reason [id number] 12y+ bivalent booster vax 01/17/22 Given zoster [...] Gm, 1 Refills, Maintenance, 02/18/22 18:02:00 EST, [facility] #[id number], Partial fill upon patient request if the [...] 1 Refills, Maintenance, 01/17/22 11:44:00 EDT, Tablet, [facility] #[id number], Partial fill upon patient request if the prescription is for a schedule II opioid drug., 173, cm, 01/17/22 10:44:00 EDT, Height Start Date: 01/17/22 Status: Ordered estradiol 0.1 mg/g vaginal cream = 1 Gm, Vaginally, Daily at bedtime, # 30 Gm, 1 Refills, Maintenance, 05/30/22 13:40:00 EST, [facility], Partial fill upon patient request if the prescription is for a schedule IIopioid drug., 173, cm, 05/30/22 13:16:00 EST, [facility]... Start Date: 05/30/22 Status: Ordered Flonase 50 mcg/inh nasal spray 1 sprays, Nares, Both, Daily in AM, # 16 Gm, 1 Refills, Maintenance, 01/17/22 11:44:00 EDT, [place], [facility] #[id number], Partial fill upon patient request if the [...] 3 Refills, Maintenance, 05/12/22 9:21:00 EST, Tablet, [facility]... Start Date: 05/12/22 Status: Ordered levothyroxine 0.1 mg oral tablet 1 tablet, By Mouth, Daily, # 30 tablet, 0 Refills, Maintenance, 01/14/22 10:22:00 EDT, [facility] #[id number], 173, cm, 10/21/21 13:31:00 EDT, Height Start Date: 01/14/22 Status: Ordered losartan 25 mg oral tablet 25 mg, 1, tablet, By Mouth, Daily, # 30 tablet, Refills 5, Tot. Refills 5, Maintenance, 06/06/22 8:50:00 EST, Route to Pharmacy Electronically, [facility] #[id number], Partial fill upon patient request if the [...] 05/30/22 13:43:00 EST, Route to Pharmacy Electronically, [facility], Partial fill upon patient request if the prescription is for a schedul... Start Date: 05/30/22 Status: Ordered Voltaren 1% topical gel 1 application, Topically, 4 times a day, PRN for pain, # 100 Gm, 3 Refills, Maintenance, 05/12/22 9:16:00 EST, Gel, [facility] #[id number], Partial fill upon patient request if the [...] S Resident Member Role: PCP Address: Address: [address] [place] [address]- Care Team Related Persons Name: JUAN CARO Address: home [address] [place] [address] Name: CORONA ACEVEDO Address: home [address] [place] [address]
--- OUTSIDE RECORDS SUMMARY | 2022-10-23 16:18 | XMS_ITS | Continuity of Care Document ---
Author Name Unknown Organization [facility] Adult [facility] Address [address] [place] [address]- Care Team Providers Care Inspector Final Assembly Electrical Name Role Phone Joce SOL, Ruthy Primary Care Physician [phone] Encounter [facility] Date(s): 10/12/21 - 11/11/21 [facility] [address] [place] [address]- Allergies, Adverse Reactions, Alerts Substance Reaction Severity [...] 05/04/17 Given tetanus/diphtheria/pertussis, acel(Tdap) 06/26/07 Recorded Medications albuterol CFC free 90 mcg/inh inhalation aerosol 2, puffs, Inhalation, Every 4 hours, PRN, for 30 days, # 1 each, Refills 0, Tot. Refills 0, Acute 11/20/21 13:21:00 EDT, 10/21/21 13:21:00 EDT, Inhaler, Route to Pharmacy Electronically, [id number], [id number]... Start Date: 10/21/21 Stop Date: 11/20/21 Status: Ordered busPIRone 7.5 mg oral tablet 1 tablet = 7.5 mg, By Mouth, 3 times a day, # 90 tablet, 0 Refills, Maintenance, 09/24/18 10:21:08 EDT, Tablet Start Date: 09/24/18 Status: Ordered flunisolide 25 mcg/inh nasal spray 2 puffs, Nares, Both, 2 times a day, # 25 mL, 0 Refills, Acute 11/21/21 13:52:00 EDT, 10/21/21 13:51:00 EDT, [place], [facility] #[id number], Partial fill upon patient request if the prescription is for a schedule II opioid drug., 2 puffs Nares, [place]... Start Date: 10/21/21 Stop Date: 11/21/21 Status: Ordered lamotrigine 100 mg oral tablet 200 mg, 2, tablet, By Mouth, Daily, Refills 0, Maintenance, 02/01/18 13:56:12 EDT Start Date: 02/01/18 Status: Ordered left knee brace left knee brace, See Instructions, # 1 each, Refills 0, Tot. Refills 0, Maintenance, left knee brace, 09/24/18 10:56:02 EDT, Compound Start Date: 09/24/18 Status: Ordered levothyroxine 0.1 mg oral tablet 1 tablet = 100 mcg, By Mouth, Daily, Decreased on 10/22/2021 from 0.112mg, # 30 tablet, 2 Refills, Maintenance, 10/22/21 8:53:00 EDT, Tablet, [facility] #[id number], Partial fill upon patient request if the prescription is for a schedule II opioid... Start Date: 10/22/21 Status: Ordered omeprazole 20 mg oral delayed release tablet 1 tablet = 20 mg, By Mouth, Daily, # 30 tablet, 0 Refills, Acute 11/21/21 13:25:00 EDT, 10/21/21 13:25:00 EDT, CR Tablet, [facility][id number], Partial fill upon patient request if the prescription is for a schedule II opioid drug., 173, cm, 07... Start Date: 10/21/21 Stop Date: 11/21/21 Status: Ordered Wellbutrin By Mouth, 0 Refills, [...]
--- OUTSIDE RECORDS SUMMARY | 2022-10-23 16:19 | XMS_ITS | Continuity of Care Document ---
Author Name Unknown Organization [facility] Address [address] [place] [address]- Care Team Providers Care Saddle Stitcher Name Role Phone Macrina Davidson DO Primary Care Physician Encounter [facility] Date(s): 07/11/22 - 08/10/22 [facility]/[address] [address]- [place] Allergies, Adverse Reactions, Alerts Substance Reaction Severity Status penicillin 1 Active morphine severe headaches Active 1itchy reaction Immunizations Given and Recorded Vaccine Date Status Refusal Reason [id number] 12y+ bivalent booster vax 01/17/22 Given zoster [...] 6.7 Gm, 1 Refills, Maintenance, 02/18/22 18:02:00 [id number], Partial fill upon patient request if the [...] 1 Refills, Maintenance, 01/17/22 11:44:00 EDT, Tablet, [facility] #[id number], Partial fill upon patient request if the prescription is for a schedule II opioid drug., 173, cm, 01/17/22 10:44:00 EDT, Height Start Date: 01/17/22 Status: Ordered estradiol 0.1 mg/g vaginal cream = 1 Gm, Vaginally, Daily at bedtime, # 30 Gm, 1 Refills, Maintenance, 05/30/22 13:40:00 EST, [facility], Partial fill upon patient request if the prescription is for a schedule IIopioid drug., 173, cm, 05/30/22 13:16:00 EST, [facility]... Start Date: 05/30/22 Status: Ordered Flonase 50 mcg/inh nasal spray 1 sprays, Nares, Both, Daily in AM, # 16 Gm, 1 Refills, Maintenance, 01/17/22 11:44:00 EDT, [place], [facility] #[id number], Partial fill upon patient request if the [...] 3 Refills, Maintenance, 05/12/22 9:21:00 EST, Tablet, [facility]... Start Date: 05/12/22 Status: Ordered levothyroxine 0.1 mg oral tablet 1 tablet, By Mouth, Daily, # 30 tablet, 0 Refills, Maintenance, 01/14/22 10:22:00 EDT, [email or web address] #[id number], 173, cm, 10/21/21 13:31:00 EDT, Height Start Date: 01/14/22 Status: Ordered losartan 25 mg oral tablet 25 mg, 1, tablet, By Mouth, Daily, # 30 tablet, Refills 5, Tot. Refills 5, Maintenance, 06/06/22 8:50:00 EST, Route to Pharmacy Electronically, [facility] #[id number], Partial fill upon patient request if the [...] 05/30/22 13:43:00 EST, Route to Pharmacy Electronically, [facility], Partial fill upon patient request if the prescription is for a schedul... Start Date: 05/30/22 Status: Ordered Voltaren 1% topical gel 1 application, Topically, 4 times a day, PRN for pain, # 100 Gm, 3 Refills, Maintenance, 05/12/22 9:16:00 EST, [place], [id number], Partial fill upon patient request if the [...] S Resident Member Role: PCP Address: Address: [address] [place] [address]- Care Team Related Persons Name: JUAN CARO Address: home [address] [place] [address] Name: CORONA ACEVEDO Address: home [address] [place] [address]
--- OUTSIDE RECORDS SUMMARY | 2022-10-23 16:19 | XMS_ITS | Continuity of Care Document ---
Author Name Unknown Organization [facility] Adult [facility] Address [address] [place] [address]- Care Team Providers Care Residential Solar Consultant Name Role Phone Ila Grant MD Primary Care Physician Encounter [facility] Date(s): 07/28/21 - 09/24/21 [facility] [address] [place], [place] [address] Attending Physician: Not on Staff, Attending MD [...] 0 Refills, Maintenance, 07/28/21 11:23:00 EDT, Tablet, [facility] #[id number], 173, cm, 07/12/21 8:39:00 EDT, Height Start Date: 07/28/21 Status: Ordered raNITIdine 300 mg oral capsule See Instructions, # 30 capsule, Refills 2 Tot. Refills 2, TAKE 1 CAPSULE BY MOUTH DAILY AT BEDTIME,[facility] #[id number] Start Date: 01/23/19 Status: Ordered Wellbutrin By [...]
--- OUTSIDE RECORDS SUMMARY | 2022-10-23 16:19 | XMS_ITS | Continuity of Care Document ---
Author Name Unknown Organization [facility] Adult [facility] Address [address] [place] [address]- Care Team Providers Care Manager Molecular Name Role Phone Joce SOL, Ruthy Primary Care Physician Encounter [facility] Date(s): 10/21/21 - 11/20/21 [facility] [address] [place] [address]- Attending Physician: AdmGerson bragg Admitting Physician: Admtr, Gerson Referring Physician: Admtr, [...] Acute 11/21/21 13:52:00 EDT, 10/21/21 13:51:00 EDT, [place], [facility] #[id number], Partial fill upon patient request if the [...] 2 Refills, Maintenance, 10/22/21 8:53:00 EDT, Tablet, [facility] #[id number], Partial fill upon patient request if the prescription is for a schedule II opioid... Start Date: 10/22/21 Status: Ordered omeprazole 20 mg oral delayed release tablet 1 tablet = 20 mg, By Mouth, Daily, # 30 tablet, 0 Refills, Acute 11/21/21 13:25:00 EDT, 10/21/21 13:25:00 EDT, CR Tablet, [facility] #[id number], Partial fill upon patient request if the [...]
--- OUTSIDE RECORDS SUMMARY | 2022-10-23 16:19 | XMS_ITS | Continuity of Care Document ---
Author Name Unknown Organization [facility] Address [address] [place] [address]- Care Team Providers Care Shear Scrapman Name Role Phone Anum SOL, Marlene Somers Primary Care Physician [place] [facility] [place] 09/08/22 - 10/08/22 [facility] [address] [place], [place] [address] Allergies, Adverse Reactions, Alerts Substance Reaction Severity Status penicillin 1 Active morphine severe headaches Active 1itchy reaction Immunizations Given and Recorded Vaccine Date Status Refusal Reason [id number] 12y+ bivalent booster vax 01/17/22 Given zoster [...] Gm, 1 Refills, Maintenance, 02/18/22 18:02:00 EST, [facility] #[id number], Partial fill upon patient request if the [...] 1 Refills, Maintenance, 01/17/22 11:44:00 EDT, Tablet, [facility] #[id number], Partial fill upon patient request if the [...] Gm, 1 Refills, Maintenance, 01/17/22 11:44:00 EDT, [place], [facility] #[id number], Partial fill upon patient request if the [...] 1 Refills, Maintenance, 09/08/22 13:13:00 EDT, Tablet, [facility]. Start Date: 09/08/22 Status: Ordered levothyroxine 0.1 mg oral tablet 1 tablet, By Mouth, Daily, # 30 tablet, 0 Refills, Maintenance, 01/14/22 10:22:00 EDT, [facility] #[id number], 173, cm, 10/21/21 13:31:00 EDT, Height Start Date: 01/14/22 Status: Ordered losartan 25 mg oral tablet 25 mg, 1, tablet, By Mouth, Daily, # 30 tablet, Refills 5, Tot. Refills 5, Maintenance, 06/06/22 8:50:00 EST, Route to Pharmacy Electronically, [facility] #[id number], Partial fill upon patient request if the [...] 3 Refills, Maintenance, 05/12/22 9:16:00 EST, Gel, [facility] #[id number], Partial fill upon patient request if the [...] Personnel Name: Anum SOL, Marlene Somers Position: [facility] Physician - Primary Care Member Role: PCP Address: Address: [address] [place] [id number]- Care Team Related Persons Name: JUAN CARO Address: home [address] [place] [address] Name: CORONA ACEVEDO Address: home [address] [place] [address]
[2022-10-23 16:20] LABS: MANUAL DIFF FLAG NO
[2022-10-23 16:22] LABS: Basophils Absolute Auto 0.1 X10*3/uL (0.0-0.2); Basophils Percent Auto 0.4 % (0-2); Eosinophils Absolute Auto 0.2 X10*3/uL (0.0-0.4); Hemoglobin 14.6 g/dl (12.0-16.0); Imm Gran Abs Auto 0.05 X10*3/uL (0.00-0.03); Imm Gran Pct Auto 0.3 % (0.0-0.4); Lymphocytes Absolute Auto 1.6 X10*3/uL (1.2-4.9); Lymphocytes Percent Auto 10.6 % (20-40); Mean Corpuscular HGB Conc 32.4 g/dl (31.0-35.0); Mean Corpuscular Volume 86.4 fL (80.0-98.0); Mean Platelet Volume 8.8 fL (9.4-12.3); Monocytes Absolute Auto 1.2 X10*3/uL (0.1-1.2); Monocytes Percent Auto 7.9 % (2-11); Neutrophils Absolute Auto 12.2 x10*3/uL (2.0-8.3); Neutrophils Percent Auto 79.8 % (45-73); Platelet Count 373 X10*3/uL (160-400); Red Blood Count 5.21 X10*6/uL (4.20-5.50); Red Cell Distribution Width 14.6 % (11.0-16.0); White Blood Count 15.3 X10*3/uL (4.8-10.8)
[2022-10-23 17:00] LABS: Appearance Urine Clear; Color Urine Yellow; Glucose Urine UA Negative (Negative); Leukocyte Esterase Urine Negative (Negative); Nitrite Urine Negative (Negative); PH 6.5 (5.0-9.0); Specific Gravity - Urine <= 1.005 (1.005-1.025); UMIC TRIGGER UACC YES; Urine Blood Trace (Negative); Urine Ketones Negative (Negative); Urine Protein Negative (Neg-Trace)
[2022-10-23 17:03] LABS: UPreg QC Valid YES; Urine Pregnancy NEGATIVE (NEGATIVE)
[2022-10-23 17:05] LABS: Bacteria Urine None Seen (None Seen); Hyaline Casts Urine 0-2 /LPF (0-2); RBC Urine 0-2 /HPF (0-2); Squamous Epithelial Cell Urine 0-2 /HPF (0-2); WBC Urine 0-5 /HPF (0-5)
[2022-10-23 17:13] LABS: Alanine Aminotransferase 22 U/L (0-31); Albumin Level 4.3 g/dL (3.5-5.0); Alkaline Phosphatase 110 U/L (39-117); Anion Gap 14 (12-20); Aspartate Amino Transferase 22 U/L (5-31); Bilirubin Total 0.3 mg/dL (0.0-1.0); Blood Urea Nitrogen 8 mg/dL (9-16); Calcium 10.1 mg/dL (8.4-10.2); Carbon Dioxide 26 mmol/L (22-29); Chloride 105 mmol/L (96-108); Creatinine Clr Calc Pharmacy 99.4; Estimated Glomerular Filt Rate > 60; Glucose Random 95 mg/dL (60-115); Lipase 12 U/L (8-78); Potassium 4.7 mmol/L (3.3-5.1); Sodium 140 mmol/L (135-145)
[2022-10-23] MEDS: ondansetron HCL 4 MG/2 ML VIAL IVPUSH (19:05)
[2022-10-23] MEDS: 0.9 % Sodium Chloride 1,000 ML 999 ML IV (19:05)
--- NOTE | 2022-10-23 19:17 | PC.NURSE ---
Assumed care of pt. pt sitting upright on stretcher, spouse at bedside. Pt endorsing abdominal pain as assessed. IV establihed for medication and CT. Pt aware of POC, pending CT annd results.
[2022-10-23 19:18] LABS: COVID-19 Test Negative (Negative); IDNOW Serial# 08D9AD1C
[2022-10-23 19:31] LABS: IDNOW Serial# 6674DD1D; Influenza A Negative (Negative); Influenza B2 Negative (Negative)
[2022-10-23] MEDS: iohexoL 350 MG/ML 100 ML INFUS..BTL IV (19:42)
[2022-10-23 19:44] LABS: IDNOW Serial# 08D9AD1C; Strep A Nucleic Acid Negative (Negative)
[2022-10-23 20:19] LABS: TSH reflex Free T4 2.74 uIU/mL (0.32-4.0)
[2022-10-23 21:15] VITALS: BP 135/81; PULSE 87; RESP 17; TEMP 36.9; O2SAT 95
[2022-10-23] MEDS: Ketorolac Tromethamine 15 MG/ML VIAL IVPUSH (21:18)
--- NOTE | 2022-10-23 21:38 | PC.NURSE ---
Pt remains lying on stretcher, pending reassessment of pain per protocolm CT read and dispo.
[2022-10-23] MEDS: Amoxicillin/Potassium Clav 875 MG TABLET PO (21:57)
--- NOTE | 2022-10-23 22:00 | PC.NURSE ---
pt PO trial successful.
== END 2022-10-23 22:00 | disposition home or self-care (01) ==
PROVIDERS: Nurse Practitioner Family; Physician Assistant Medical; Emergency Provider Emergency Medicine
DX: K57.32 Diverticulitis of large intestine without perforation or abscess without bleeding (principal); R11.2 Nausea with vomiting, unspecified; Z20.822 Contact with and (suspected) exposure to COVID-19
CPT/HCPCS: 36415; 74177; 80053; 81001; 81003; 81025; 83690; 84443; 85025; 87502; 87635; 87651; 96361; 96374; 96375; 99284; 99285; J1885; J2405; Q9967

== ENCOUNTER 2022-11-07 14:44 | Inpatient (IN) | payer OTHER, SELFPAY ==
--- NOTE | ~2022-11-07 | CT_ITS ---
EXAMINATION: CT ABDOMEN AND PELVIS WITHOUT CONTRAST CLINICAL INFORMATION: Left lower quadrant pain. History of diverticulitis. COMPARISON: Previous CT scans of the abdomen and pelvis April and October 2022 TECHNIQUE: Multidetector volumetric imaging was performed from the superior aspect of the liver through the pubic symphysis. Sagittal and coronal reformatted images were obtained on the technologist's workstation. This CT examination was performed using dose optimization techniques as appropriate, variously including the following: *Automated exposure control *Adjustment of mA and/or kV according to patient size (this includes techniques or standardized protocols for targeted exams where dose is matched to indication/reason for exam; i.e. extremities or head) *Use of iterative reconstruction technique DLP: 732 mGy-cm FINDINGS: LUNG BASES: 3 mm left lower lobe nodule axial image 38 series 4. 4 mm left lower lobe nodule axial image 43 series 4. These are unchanged from recent exam. LIVER, GALLBLADDER, AND BILIARY TREE: The liver is normal in size, shape, and attenuation. No focal hepatic lesion or biliary ductal dilatation is present. The gallbladder is unremarkable with no evidence of radiopaque gallstones, gallbladder wall thickening, or obvious pericholecystic inflammatory changes. PANCREAS: Unremarkable. SPLEEN: Unremarkable. ADRENAL GLANDS: Unremarkable. KIDNEYS AND URETERS: The kidneys are normal in size, shape, and attenuation. No hydronephrosis, hydroureter, or calculi seen. No perinephric stranding. BLADDER: Unremarkable. GASTROINTESTINAL TRACT: There is wall thickening, and wall edema of the distal left colon, sigmoid colon and rectum. There is stranding of the adjacent fat. Appearance is suggestive of proctocolitis. This is slightly increased from most recent exam October 2022 There is a small amount of air seen adjacent to the right side of the uterus and anterior to the lower sigmoid colon or upper rectum or example axial image 81 series 3. This is a new finding compared to recent exam October 2022 and is questionable for contained perforation. No free air. No evidence of obstruction. There is mild diverticulosis of the colon. The small and large bowel are otherwise unremarkable. The appendix is unremarkable. ABDOMINAL WALL: No significant hernia is appreciated. LYMPH NODES: There are prominent perirectal lymph nodes. Largest lymph node is a left perirectal lymph node measuring 7 mm axial image 78 series 3. This is similar to previous exam. VASCULAR: Unremarkable. PELVIC VISCERA: Small amount of air adjacent to the right side of the uterus as described above. Uterus and adnexa are otherwise unremarkable. OSSEOUS STRUCTURES: Unremarkable. CT/CT abdomen pelvis wo IV con IMPRESSION: Proctocolitis. Small amount of air adjacent to the right side of the uterus questionable for contained perforation. Small pulmonary nodules in the left lower lobe stable from oldest available CT April 2022. Fleischner guidelines were followed.
[2022-11-07 15:53] VITALS: BP 139/95; PULSE 118; RESP 20; TEMP 36.4; O2SAT 97; BMI 27.4
--- NOTE | 2022-11-07 15:54 | ED.GENADULT ---
HPI - General Adult General Chief complaint: Abdominal Pain Stated complaint: Diverticulitis Time Seen by Provider: 11/07/22 16:39 Source: patient Mode of arrival: ambulatory Limitations: no limitations History of Present Illness HPI narrative: patient with History of diverticulitis was seen here on 10/23 and treated with Augmentin patient got better after taking antibiotics today earlier in the morning all of a sudden noticed severe pain in lower abdomen more on the left lower quadrant with nausea vomiting and diarrhea no fever no chills no abdominal distention no urinary complaint Related Data Home Medications Medication Instructions Recorded Confirmed ascorbic acid (vitamin C) 500 mg 500 mg PO DAILY 11/07/22 11/07/22 tablet (Vitamin C) ibuprofen 200 mg tablet 200 mg PO Q6H PRN Pain 11/07/22 11/07/22 levothyroxine 88 mcg tablet 88 mcg PO DAILY 11/07/22 11/07/22 losartan 25 mg tablet 25 mg PO DAILY 11/07/22 11/07/22 omega 8-xuv-cup-fish oil 1,000 mg 1 cap PO DAILY 11/07/22 11/07/22 (120 mg-180 mg) capsule (Fish Oil) propylene glycol 1 %-glycerin 0.3 1 drp ophthalmic (eye) DAILY PRN 11/07/22 11/07/22 % eye drops (Artificial Tears Dry Eyes (glycerin-peg)) zolpidem 10 mg tablet 10 mg PO BEDTIME 11/07/22 11/07/22 Allergies Allergy/AdvReac Type Severity Reaction Status Date / Time Penicillins Allergy Rash Verified 11/07/22 15:57 morphine AdvReac Headache Verified 11/07/22 20:22 Review of Systems Review of Systems: Yes all other systems are reviewed and are negative [facility] Past Medical History Medical History Anxiety Bipolar illness Depression Social History Social History Alcohol intake: never Smoked in Last 30 Days: No Use of substances other than those prescribed or required for medical reasons: No Advance Directives: No Advance Directives Information Provided: No Physical Exam ED Vital Signs: Vital Signs - 24 hr 11/07/22 15:53 11/07/22 16:39 11/07/22 18:31 Temperature 97.6 F 98.6 F 98.8 F Pulse Rate 118 H 110 H 89 Respiratory Rate 20 18 16 Blood Pressure 139/95 H 136/95 H 110/69 Pulse Oximetry 97 98 98 Oxygen Delivery Method Room Air Room Air Room Air BMI result Body Mass Index 27.4 Appearance: Alert. Oriented X3. No acute distress. Eyes: No pallor or icterus ENT: Pharynx normal. Oral Mucosa moist Neck: Normal inspection. Neck supple. CVS: Normal heart rate and rhythm. Pulses normal. Respiratory: No respiratory distress. Equal air entry bilateral, no wheezing/rales/rhonchi Abdomen: Soft tender left lower quadrant. Bowel sounds are present, no mass palpable, no CVA tenderness Skin: Skin warm and dry. Normal skin color. Normal skin turgor. Extremities: No lower extremity edema. No calf tenderness Neuro: Oriented X 3. No motor deficit. Course Course Course Narrative: RME performed by Dorina Thomas PA-C. Patient is a 52 year old assigned female at presenting to the emergency department with abdominal pain. Patient was treated for diverticulitis on 10/23/2022, finished ABX as prescribed, got better but now all the symptoms are back and worse. Labs ordered. Patient placed back in the waiting room pending room availability and results. Medications Administered Generic Name Dose Route Start Last Admin Trade Name Freq PRN Reason Stop Dose Admin Lactated Ringer's 1,000 mls @ 100 mls/hr 11/07/22 19:30 11/07/22 20:28 Lr IVCONT 100 mls/hr .Q10H FLAVIA Administration Discontinued Medications Generic Name Dose Route Start Last Admin Trade Name Freq PRN Reason Stop Dose Admin Sodium Chloride 1,000 mls @ 999 mls/hr 11/07/22 16:44 11/07/22 17:36 Ns IV 11/07/22 17:44 999 mls/hr .Q1H1M ONE Administration Piperacillin Sod/Tazobactam 50 mls @ 100 mls/hr 11/07/22 16:44 11/07/22 18:09 Sod 3.375 gm/ Sodium Chloride IV 11/07/22 17:13 Infused ONCE ONE Infusion Ketorolac Tromethamine 30 mg 11/07/22 20:25 11/07/22 20:33 Ketorolac Tromethamine 30 Mg/Ml Vial IVPUSH 11/07/22 20:26 30 mg ONCE ONE Administration Morphine Sulfate 4 mg 11/07/22 16:47 11/07/22 17:38 Morphine Sulfate 4 Mg/Ml Cartridge IVPUSH 11/07/22 16:48 Not Given ONCE ONE Protocol Ondansetron HCl 4 mg 11/07/22 16:47 11/07/22 17:39 Ondansetron Hcl 4 Mg/2 Ml Vial IVPUSH 11/07/22 16:48 4 mg ONCE ONE Administration Medical Decision Making Medical Decision Making [facility] Narrative: Patient with localized perforated diverticulitis case discussed Dr. Orourke surgery will admit patient to his service will continue Zosyn for now, patient has normal lactic acid level Differential Diagnosis Differential Diagnoses: The differential diagnosis associated with the presentation includes Diverticulitis/perforation/colitis/appendicitis/UTI Lab Data [facility] Lab Attestation statement: I reviewed the patient's lab results. 11/07/22 16:05 11/07/22 16:05 Labs: Lab Results 11/07/22 11/07/22 11/07/22 Range/Units 16:05 16:05 16:05 WBC 16.7 H (4.8-10.8) X10*3/uL RBC 5.35 (4.20-5.50) X10*6/uL Hgb 14.7 (12.0-16.0) g/dl Hct 45.9 (37.0-47.0) % MCV 85.8 (80.0-98.0) fL MCH 27.5 (27.0-33.0) pg MCHC 32.0 (31.0-35.0) g/dl RDW 14.6 (11.0-16.0) % Plt Count 419 H (160-400) X10*3/uL MPV 9.1 L (9.4-12.3) fL Immature Gran % (Auto) 0.4 (0.0-0.4) % Neut % (Auto) 85.3 H (45-73) % Lymph % (Auto) 6.7 L (20-40) % [place] % (Auto) 6.8 (2-11) % Eos % (Auto) 0.4 (0-4) % Baso % (Auto) 0.4 (0-2) % Lymph # (Auto) 1.1 L (1.2-4.9) X10*3/uL [place] # (Auto) 1.1 (0.1-1.2) X10*3/uL Eos # (Auto) 0.1 (0.0-0.4) X10*3/uL Baso # (Auto) 0.1 (0.0-0.2) X10*3/uL Abs Immat Gran (auto) 0.07 H (0.00-0.03) X10*3/uL Absolute Neuts (auto) 14.3 H (2.0-8.3) x10*3/uL Absolute Nucleated RBC 0.000 (0.0-0.012) X10*3/uL Nucleated RBC % (auto) 0.0 (0.0-0.2) /100WBC Sodium 139 (135-145) mmol/L Potassium 4.1 (3.3-5.1) mmol/L Chloride 108 (96-108) mmol/L Carbon Dioxide 22 (22-29) mmol/L Anion Gap 13 (12-20) BUN 6 L (9-16) mg/dL Creatinine 0.77 (0.5-1.4) mg/dL Estim Creat Clear Calc 93.6 Estimated GFR > 60 Random Glucose 102 (60-115) mg/dL Lactic Acid (0.5-2.0) mmol/L Calcium 9.6 (8.4-10.2) mg/dL Magnesium 2.2 (1.6-2.6) mg/dL Total Bilirubin 0.3 (0.0-1.0) mg/dL AST 16 (5-31) U/L ALT 12 (0-31) U/L Alkaline Phosphatase 103 (39-117) U/L Total Protein 7.9 (6.5-8.0) g/dL Albumin 4.2 (3.5-5.0) g/dL Urine Color Urine Appearance Urine pH (5.0-9.0) Ur Specific [place] (1.005-1.025) Urine Protein (Neg-Trace) mg/dL Urine Glucose (UA) (Negative) mg/dL Urine Ketones (Negative) mg/dL Urine Blood (Negative) Urine Nitrite (Negative) Ur Leukocyte Esterase (Negative) Urine RBC (0-2) /HPF Urine WBC (0-5) /HPF Ur Squamous Epith Cells (0-2) /HPF Urine Bacteria (None Seen) Hyaline Casts (0-2) /LPF COVID-19 (MELLY) Negative (Negative) COVID-19 Clin Com See Note 11/07/22 11/07/22 Range/Units 17:31 18:56 WBC (4.8-10.8) X10*3/uL RBC (4.20-5.50) X10*6/uL Hgb (12.0-16.0) g/dl Hct (37.0-47.0) % MCV (80.0-98.0) fL MCH (27.0-33.0) pg MCHC (31.0-35.0) g/dl RDW (11.0-16.0) % Plt Count (160-400) X10*3/uL MPV (9.4-12.3) fL Immature Gran % (Auto) (0.0-0.4) % Neut % (Auto) (45-73) % Lymph % (Auto) (20-40) % [place] % (Auto) (2-11) % Eos % (Auto) (0-4) % Baso % (Auto) (0-2) % Lymph # (Auto) (1.2-4.9) X10*3/uL [place] # (Auto) (0.1-1.2) X10*3/uL Eos # (Auto) (0.0-0.4) X10*3/uL Baso # (Auto) (0.0-0.2) X10*3/uL Abs Immat Gran (auto) (0.00-0.03) X10*3/uL Absolute Neuts (auto) (2.0-8.3) x10*3/uL Absolute Nucleated RBC (0.0-0.012) X10*3/uL Nucleated RBC % (auto) (0.0-0.2) /100WBC Sodium (135-145) mmol/L Potassium (3.3-5.1) mmol/L Chloride (96-108) mmol/L Carbon Dioxide (22-29) mmol/L Anion Gap (12-20) BUN (9-16) mg/dL Creatinine (0.5-1.4) mg/dL Estim Creat Clear Calc Estimated GFR Random Glucose (60-115) mg/dL Lactic Acid 1.4 (0.5-2.0) mmol/L Calcium (8.4-10.2) mg/dL Magnesium (1.6-2.6) mg/dL Total Bilirubin (0.0-1.0) mg/dL AST (5-31) U/L ALT (0-31) U/L Alkaline Phosphatase (39-117) U/L Total Protein (6.5-8.0) g/dL Albumin (3.5-5.0) g/dL Urine Color Yellow Urine Appearance Clear Urine pH 8.5 (5.0-9.0) Ur Specific [place] 1.015 (1.005-1.025) Urine Protein Negative (Neg-Trace) mg/dL Urine Glucose (UA) Negative (Negative) mg/dL Urine Ketones Negative (Negative) mg/dL Urine Blood Trace H (Negative) Urine Nitrite Negative (Negative) Ur Leukocyte Esterase Negative (Negative) Urine RBC 3-5 H (0-2) /HPF Urine WBC 0-5 (0-5) /HPF Ur Squamous Epith Cells 3-5 (0-2) /HPF Urine Bacteria None Seen (None Seen) Hyaline Casts 0-2 (0-2) /LPF COVID-19 (MELLY) (Negative) COVID-19 Clin Com Radiology Impression Discussion of test interpretation with radiology: I have reviewed the radiologist's reading. Radiologist Impression: CT/CT abdomen pelvis wo IV con IMPRESSION: Proctocolitis. Small amount of air adjacent to the right side of the uterus questionable for contained perforation. ? Small pulmonary nodules in the left lower lobe stable from oldest available CT April 2022. ? Discharge Plan Discharge Clinical Impression: Diverticulitis of intestine with perforation without abscess or bleeding Patient Disposition: Admitted As Inpatient Interventions: Admission Worksheet (ED) Last Done: 11/07/22 20:41 Discharge Date/Time: 11/07/22 22:11
[2022-11-07 16:09] LABS: MANUAL DIFF FLAG NO
[2022-11-07 16:24] LABS: Basophils Absolute Auto 0.1 X10*3/uL (0.0-0.2); Basophils Percent Auto 0.4 % (0-2); Eosinophils Absolute Auto 0.1 X10*3/uL (0.0-0.4); Eosinophils Percent Auto 0.4 % (0-4); Hematocrit 45.9 % (37.0-47.0); Hemoglobin 14.7 g/dl (12.0-16.0); Imm Gran Abs Auto 0.07 X10*3/uL (0.00-0.03); Imm Gran Pct Auto 0.4 % (0.0-0.4); Lymphocytes Absolute Auto 1.1 X10*3/uL (1.2-4.9); Lymphocytes Percent Auto 6.7 % (20-40); Mean Corpuscular Hemoglobin 27.5 pg (27.0-33.0); Mean Corpuscular Volume 85.8 fL (80.0-98.0); Mean Platelet Volume 9.1 fL (9.4-12.3); Monocytes Absolute Auto 1.1 X10*3/uL (0.1-1.2); Monocytes Percent Auto 6.8 % (2-11); Neutrophils Absolute Auto 14.3 x10*3/uL (2.0-8.3); Neutrophils Percent Auto 85.3 % (45-73); Platelet Count 419 X10*3/uL (160-400); Red Blood Count 5.35 X10*6/uL (4.20-5.50); Red Cell Distribution Width 14.6 % (11.0-16.0); White Blood Count 16.7 X10*3/uL (4.8-10.8)
[2022-11-07 16:28] LABS: COVID-19 Test Negative (Negative); IDNOW Serial# BCCEAD1C
[2022-11-07 16:29] LABS: Alanine Aminotransferase 12 U/L (0-31); Albumin Level 4.2 g/dL (3.5-5.0); Alkaline Phosphatase 103 U/L (39-117); Anion Gap 13 (12-20); Aspartate Amino Transferase 16 U/L (5-31); Bilirubin Total 0.3 mg/dL (0.0-1.0); Blood Urea Nitrogen 6 mg/dL (9-16); Calcium 9.6 mg/dL (8.4-10.2); Carbon Dioxide 22 mmol/L (22-29); Chloride 108 mmol/L (96-108); Creatinine Clr Calc Pharmacy 93.6; Estimated Glomerular Filt Rate > 60; Glucose Random 102 mg/dL (60-115); Magnesium 2.2 mg/dL (1.6-2.6); Potassium 4.1 mmol/L (3.3-5.1); Sodium 139 mmol/L (135-145); Total Protein 7.9 g/dL (6.5-8.0)
[2022-11-07 16:39] VITALS: BP 136/95; PULSE 110; RESP 18; TEMP 37; O2SAT 98
[2022-11-07] MEDS: 0.9 % Sodium Chloride 1,000 ML 999 ML IV (17:36)
[2022-11-07] MEDS: Piperacillin Sodium/Tazobactam 3.375 GM in 0.9 % Sodium Chloride 50 ML IV ×2 (17:37→23:57)
[2022-11-07] MEDS: ondansetron HCL 4 MG/2 ML VIAL IVPUSH (17:39)
[2022-11-07 18:17] LABS: Lactic Acid 1.4 mmol/L (0.5-2.0)
[2022-11-07 18:31] VITALS: BP 110/69; PULSE 89; RESP 16; TEMP 37.1; O2SAT 98
--- NOTE | 2022-11-07 18:32 | MHC.EDTECH ---
THIS PCT JUST ASSUMED CARE OF PATIENT ,VITALS SIGN TAKEN ,WAITING TO COLLECT URINE SAMPLE .
[2022-11-07 19:02] LABS: Appearance Urine Clear; Color Urine Yellow; Glucose Urine UA Negative (Negative); Leukocyte Esterase Urine Negative (Negative); Nitrite Urine Negative (Negative); PH 8.5 (5.0-9.0); Specific Gravity - Urine 1.015 (1.005-1.025); UMIC TRIGGER UACC YES; Urine Blood Trace (Negative); Urine Ketones Negative (Negative); Urine Protein Negative (Neg-Trace)
[2022-11-07 19:04] LABS: Bacteria Urine None Seen (None Seen); Hyaline Casts Urine 0-2 /LPF (0-2); WBC Urine 0-5 /HPF (0-5)
[2022-11-07] MEDS: Lactated Ringers 1,000 ML 100 ML IVCONT (20:28)
[2022-11-07] MEDS: Ketorolac Tromethamine 30 MG/ML VIAL IVPUSH (20:33)
[2022-11-07 20:35] VITALS: BP 114/73; PULSE 75; RESP 17; O2SAT 96
--- NOTE | 2022-11-07 20:40 | PC.NURSE ---
Report to Keren KYLE on [facility].
--- NOTE | 2022-11-07 21:16 | PHA.MEDREC ---
Pharmacy Consult ? Medication Reconciliation Pharmacy has completed the medication reconciliation. spoke with patient and family member. Patient was on buspar, wellbutrin, and lamictal but has not been taking them due to stomach pain. She reported last taking them a few weeks ago. Currently taking zolpidem every night instead of PRN.
[2022-11-07 22:55] VITALS: BP 110/60; PULSE 66; RESP 18; TEMP 36.3; O2SAT 94
[2022-11-07] MEDS: 0.9 % Sodium Chloride Flush 3 ML SYRINGE IVFLUSH (23:57)
[2022-11-08 05:51] VITALS: BMI 30.6
[2022-11-08] MEDS: HYDROmorphone HCl 0.5 MG/0.5 ML SYRINGE IVPUSH ×2 (06:03→21:55)
[2022-11-08] MEDS: Piperacillin Sodium/Tazobactam 3.375 GM in 0.9 % Sodium Chloride 50 ML IV ×4 (06:03→21:55)
[2022-11-08 06:57] LABS: Hematocrit 37.7 % (37.0-47.0); Hemoglobin 12.1 g/dl (12.0-16.0); Mean Corpuscular HGB Conc 32.1 g/dl (31.0-35.0); Mean Corpuscular Hemoglobin 28.1 pg (27.0-33.0); Mean Corpuscular Volume 87.7 fL (80.0-98.0); Mean Platelet Volume 9.6 fL (9.4-12.3); Platelet Count 335 X10*3/uL (160-400); Red Cell Distribution Width 14.8 % (11.0-16.0); White Blood Count 7.2 X10*3/uL (4.8-10.8)
[2022-11-08 07:09] LABS: Anion Gap 11 (12-20); Blood Urea Nitrogen 8 mg/dL (9-16); Calcium 8.7 mg/dL (8.4-10.2); Carbon Dioxide 24 mmol/L (22-29); Chloride 111 mmol/L (96-108); Creatinine Clr Calc Pharmacy 111.7; Estimated Glomerular Filt Rate > 60; Glucose Random 93 mg/dL (60-115); Potassium 4.1 mmol/L (3.3-5.1); Sodium 142 mmol/L (135-145)
[2022-11-08 07:51] VITALS: BP 131/73; PULSE 57; RESP 20; TEMP 36.6; O2SAT 97
--- NOTE | 2022-11-08 08:10 | MHC.CM.PN ---
CM met with Patient at bedside. 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 PCP is from [facility] in [place].
--- NOTE | 2022-11-08 08:37 | P.HPGS_ITS ---
History of Present Illness History of Present Illness Date of Service: 11/09/22 Chief complaint: Acute Diverticulitis Narrative: Carito Valentin is a 52 year old female admitted by the ER last night because of acute diverticulitis. She started to have pain on the lower abdomen about the prior to admission mostly on the left lower quadrant. She was actually in the ER as well last 10/23/2022 because of similar pain and was given oral antibiotics at that time. She says she did get better but started to have recurrence of the pain again. She says that this pain worsened as well yesterday afternoon when she had a bowel movement. She denies any nausea or vomiting. She denies any fever or chills. She had a CAT scan done last night showing inflammatory changes in the sigmoid along with a small amount of extraluminal air consistent with microperforation. She does state that she still has pain this morning although this is better. She has never had any abdominal surgery although states that she had thyroidectomy in the past and is currently on thyroid hormone supplementation. Review of Systems Constitutional: Constitutional: Denies chills and Denies fever(s) Cardiovascular: Cardiovascular: Denies chest pain, Denies dyspnea and Denies dyspnea on exertion Respiratory: Respiratory: Denies cough, Denies dyspnea and Denies dyspnea on exertion Gastrointestinal: Gastrointestinal: Denies hematochezia and Denies change in bowel habits Genitourinary: Genitourinary: Denies hematuria Musculoskeletal: Musculoskeletal: Denies back pain and Denies limited range of motion Neurologic: Denies focal weakness and Denies convulsions Psychiatric: Psychiatric: Denies depression and Denies mood swings PMFSH Past Medical History Medical History (Updated 11/08/22 @ 08:49 by Luna Harris PA-C) Anxiety Bipolar illness Depression Thyroid disease Surgical History Surgical History (Updated 11/08/22 @ 08:48 by Luna Harris PA-C) H/O thyroidectomy Hx of tonsillectomy Social History Social History Household Members: Spouse Do you presently have visiting nurse or other home services: No Alcohol intake: never Patient Tobacco Use Status: Never used Tobacco Smoked in Last 30 Days: No Use of substances other than those prescribed or required for medical reasons: No Currently Displaying Signs/Symptoms of Drug Intoxication Withdrawal: No Have you been hit, kicked, punched, or otherwise hurt by someone within the past year? If so, by whom?: No Do you feel safe in your current relationship?: Yes Is there a partner from a previous relationship who is making you feel unsafe now?: No Are you made to feel afraid or neglected: No Advance Directives: No Advance Directives Information Provided: No Do you have thoughts of harming others: None Do you have a plan to hurt others: No Plan Recently lost weight without trying: Unsure Nutrition Risks: No Nutritional Risk Patient : No : No Poor oral hygiene: No service: No Meds Allergies Allergy/AdvReac Type Severity Reaction Status Date / Time Penicillins Allergy Rash Verified 11/07/22 15:57 morphine AdvReac Headache Verified 11/07/22 20:22 Active Medications: Current Medications Heparin Sodium (Porcine) (Heparin Sodium,Porcine 5,000 Unit/Ml Vial) 5,000 unit SUBCUT Q8H [facility] Hydromorphone HCl (Hydromorphone Hcl 0.5 Mg/0.5 Ml Syringe) 0.5 mg IVPUSH Q3H PRN; Protocol PRN Reason: Pain, Moderate(Pain Scale 4-6) Last Admin: 11/08/22 06:03 Dose: 0.5 mg Lactated Ringer's (Lr) 1,000 mls @ 100 mls/hr IVCONT .Q10H [facility] Last Infusion: 11/08/22 06:35 Dose: 100 mls/hr Piperacillin Sod/Tazobactam (Sod 3.375 gm/ Sodium Chloride) 50 mls @ 100 mls/hr IV Q6H [facility] Last Infusion: 11/08/22 07:06 Dose: Infused Morphine Sulfate (Morphine Sulfate 4 Mg/Ml Cartridge) 3 mg IVPUSH Q3H PRN; Protocol PRN Reason: Pain, Severe (Pain Scale 7-10) Ondansetron HCl (Ondansetron Hcl 4 Mg/2 Ml Vial) 4 mg IVPUSH Q8H PRN PRN Reason: nausea Sodium Chloride (0.9 % Sodium Chloride Flush 3 Ml Syringe) 3 ml IVFLUSH QSHIFT [facility] Last Admin: 11/07/22 23:57 Dose: 3 ml Home Medications Medication Instructions Recorded Confirmed Last Taken Type ascorbic acid (vitamin C) 500 mg 500 mg PO DAILY 11/07/22 11/07/22 Unknown History tablet (Vitamin C) ibuprofen 200 mg tablet 200 mg PO Q6H PRN Pain 11/07/22 11/07/22 Unknown History levothyroxine 88 mcg tablet 88 mcg PO DAILY 11/07/22 11/07/22 11/07/22 History losartan 25 mg tablet 25 mg PO DAILY 11/07/22 11/07/22 11/07/22 History omega 5-qku-eyy-fish oil 1,000 mg 1 cap PO DAILY 11/07/22 11/07/22 Unknown History (120 mg-180 mg) capsule (Fish Oil) propylene glycol 1 %-glycerin 0.3 1 drp ophthalmic (eye) DAILY PRN 11/07/22 11/07/22 Unknown History % eye drops (Artificial Tears Dry Eyes (glycerin-peg)) zolpidem 10 mg tablet 10 mg PO BEDTIME 11/07/22 11/07/22 Unknown History Physical Exam Vital Signs: Vital Signs: Last Vital Signs Temp 97.8 F 11/08/22 07:51 Pulse 57 11/08/22 07:51 Resp 20 11/08/22 07:51 BP 131/73 11/08/22 07:51 Pulse Ox 97 11/08/22 07:51 O2 Del Method Room Air 11/08/22 07:51 BMI result Body Mass Index 30.6 Const: General: comfortable and no acute distress Orientation/consciousness: patient oriented x3 Neck: Neck: Yes no lymphadenopathy Resp: Auscultation: clear to auscultation bilaterally Cardio: Rhythm: regular rhythm GI: Other: tender on left lower quadrant and the abdomen, with no guarding or rebound Palpation (GI): Soft to palpation, Tenderness to palpation present (GI) and no guarding Neuro: General: patient oriented x3 Results Results Labs: Short CBC 11/07/22 11/08/22 Range/Units 16:05 06:27 WBC 16.7 H 7.2 (4.8-10.8) X10*3/uL Hgb 14.7 12.1 (12.0-16.0) g/dl Hct 45.9 37.7 (37.0-47.0) % Plt Count 419 H 335 (160-400) X10*3/uL BMP 11/07/22 11/08/22 16:05 06:27 Sodium 139 142 Potassium 4.1 4.1 Chloride 108 111 H Carbon Dioxide 22 24 BUN 6 L 8 L Creatinine 0.77 0.68 Calcium 9.6 8.7 D Liver Function 11/07/22 Range/Units 16:05 Total Bilirubin 0.3 (0.0-1.0) mg/dL AST 16 (5-31) U/L ALT 12 (0-31) U/L Alkaline Phosphatase 103 (39-117) U/L Albumin 4.2 (3.5-5.0) g/dL Urine 11/07/22 Range/Units 18:56 Urine Color Yellow Urine Appearance Clear Urine pH 8.5 (5.0-9.0) Ur Specific [place] 1.015 (1.005-1.025) Urine Protein Negative (Neg-Trace) mg/dL Urine Glucose (UA) Negative (Negative) mg/dL Laboratory Results WBC 7.2 X10*3/uL (4.8-10.8) 11/08/22 06:27 RBC 4.30 X10*6/uL (4.20-5.50) 11/08/22 06:27 Hgb 12.1 g/dl (12.0-16.0) 11/08/22 06:27 Hct 37.7 % (37.0-47.0) 11/08/22 06:27 MCV 87.7 fL (80.0-98.0) 11/08/22 06:27 MCH 28.1 pg (27.0-33.0) 11/08/22 06:27 MCHC 32.1 g/dl (31.0-35.0) 11/08/22 06:27 RDW 14.8 % (11.0-16.0) 11/08/22 06:27 Plt Count 335 X10*3/uL (160-400) 11/08/22 06:27 MPV 9.6 fL (9.4-12.3) 11/08/22 06:27 Immature Gran % (Auto) 0.4 % (0.0-0.4) 11/07/22 16:05 Neut % (Auto) 85.3 % (45-73) H 11/07/22 16:05 Lymph % (Auto) 6.7 % (20-40) L 11/07/22 16:05 [place] % (Auto) 6.8 % (2-11) 11/07/22 16:05 Eos % (Auto) 0.4 % (0-4) 11/07/22 16:05 Baso % (Auto) 0.4 % (0-2) 11/07/22 16:05 Lymph # (Auto) 1.1 X10*3/uL (1.2-4.9) L 11/07/22 16:05 [place] # (Auto) 1.1 X10*3/uL (0.1-1.2) 11/07/22 16:05 Eos # (Auto) 0.1 X10*3/uL (0.0-0.4) 11/07/22 16:05 Baso # (Auto) 0.1 X10*3/uL (0.0-0.2) 11/07/22 16:05 Abs Immat Gran (auto) 0.07 X10*3/uL (0.00-0.03) H 11/07/22 16:05 Absolute Neuts (auto) 14.3 x10*3/uL (2.0-8.3) H 11/07/22 16:05 Absolute Nucleated RBC 0.000 X10*3/uL (0.0-0.012) 11/08/22 06:27 Nucleated RBC % (auto) 0.0 /100WBC (0.0-0.2) 11/08/22 06:27 Sodium 142 mmol/L (135-145) 11/08/22 06:27 Potassium 4.1 mmol/L (3.3-5.1) 11/08/22 06:27 Chloride 111 mmol/L (96-108) H 11/08/22 06:27 Carbon Dioxide 24 mmol/L (22-29) 11/08/22 06:27 Anion Gap 11 (12-20) L 11/08/22 06:27 BUN 8 mg/dL (9-16) L 11/08/22 06:27 Creatinine 0.68 mg/dL (0.5-1.4) 11/08/22 06:27 Estim Creat Clear Calc 111.7 11/08/22 06:27 Estimated GFR > 60 11/08/22 06:27 Random Glucose 93 mg/dL (60-115) 11/08/22 06:27 Lactic Acid 1.4 mmol/L (0.5-2.0) 11/07/22 17:31 Calcium 8.7 mg/dL (8.4-10.2) D 11/08/22 06:27 Magnesium 2.2 mg/dL (1.6-2.6) 11/07/22 16:05 Total Bilirubin 0.3 mg/dL (0.0-1.0) 11/07/22 16:05 AST 16 U/L (5-31) 11/07/22 16:05 ALT 12 U/L (0-31) 11/07/22 16:05 Alkaline Phosphatase 103 U/L (39-117) 11/07/22 16:05 Total Protein 7.9 g/dL (6.5-8.0) 11/07/22 16:05 Albumin 4.2 g/dL (3.5-5.0) 11/07/22 16:05 Urine Color Yellow 11/07/22 18:56 Urine Appearance Clear 11/07/22 18:56 Urine pH 8.5 (5.0-9.0) 11/07/22 18:56 Ur Specific [place] 1.015 (1.005-1.025) 11/07/22 18:56 Urine Protein Negative mg/dL (Neg-Trace) 11/07/22 18:56 Urine Glucose (UA) Negative mg/dL (Negative) 11/07/22 18:56 Urine Ketones Negative mg/dL (Negative) 11/07/22 18:56 Urine Blood Trace (Negative) H 11/07/22 18:56 Urine Nitrite Negative (Negative) 11/07/22 18:56 Ur Leukocyte Esterase Negative (Negative) 11/07/22 18:56 Urine RBC 3-5 /HPF (0-2) H 11/07/22 18:56 Urine WBC 0-5 /HPF (0-5) 11/07/22 18:56 Ur Squamous Epith Cells 3-5 /HPF (0-2) 11/07/22 18:56 Urine Bacteria None Seen (None Seen) 11/07/22 18:56 Hyaline Casts 0-2 /LPF (0-2) 11/07/22 18:56 COVID-19 (MELLY) Negative (Negative) 11/07/22 16:05 COVID-19 Clin Com See Note 11/07/22 16:05 Impressions Abdomen/Pelvis CT 11/07/22 17:21 IMPRESSION: Proctocolitis. Small amount of air adjacent to the right side of the uterus questionable for contained perforation. Small pulmonary nodules in the left lower lobe stable from oldest available CT April 2022. Fleischner guidelines were followed. Assessment and Plan (1) Diverticulitis of intestine with perforation without abscess or bleeding: Status: Acute She has acute diverticulitis with perforation on the CT scan. She is admitted for IV antibiotics and bowel rest She has had no fever or chills. Abdominal exam is benign. Her white count was normalized this morning She understands the planned treatment for now which involves antibiotics, and bowel rest. She understands the small likelihood of requiring laparotomy if she has worsening or non improvement. Time Spent With Patient Time: Total time managing care of this patient today ____ minutes. Quality VTE VTE Risk Level:: Medical - moderate - high VTE Device Contraindication: N/A - Device Ordered VTE Drug Contraindication: N/A - Med Ordered Procedures Date of Service Date of Service: 11/09/22
--- NOTE | 2022-11-08 08:39 | P.HPGS_ITS ---
History of Present Illness History of Present Illness Date of Service: 11/08/22 <Luna Harris PA-C - Last Filed: 11/08/22 08:53> 11/09/22 <Dylan Orourke MD - Last Filed: 11/09/22 08:11> Chief complaint: Acute Diverticulitis <Luna Harris PA-C - Last Filed: 11/08/22 08:53> Narrative: Carito Valentin is a 52 year old female who presented with worsening LLQ abdominal pain. Patient was seen at [facility] [place] for LLQ pain. She was diagnosed with acute sigmoid diverticulitis with only mild inflammation of the sigmoid on CT scan. She was prescribed augmentin and discharged to home. She reports her LLQ pain was improving until yesterday when the pain acutely worsened and spread to her suprapubic region. It was associated with nausea, vomiting. She felt febrile but did not take her temperature. Due to the acute worsening and severity of the pain, she came back to the ED. Work up included CBC, BMP and LFTs which were significant for a leukocytosis of 16.7. CT scan abd/pelvis was performed which showed wall thickening, wall edema of the distal left colon, sigmoid colon and rectum with stranding of the adjacent fat with a small amount of air adjacent to the uterus on the right. This morning, she feels better with less abdominal pain. She denies nausea or vomiting. She had a colonoscopy over 10 years ago at [place] which was normal. <Luna Harris PA-C - Last Filed: 11/08/22 08:53> Review of Systems Constitutional: Constitutional: Denies chills and Reports fever(s) <Luna Harris PA-C - Last Filed: 11/08/22 08:53> ENT: Denies dizziness <JOEY Gutierrez Last Filed: 11/08/22 08:53> Cardiovascular: Cardiovascular: Denies chest pain, Denies palpitations and Denies dyspnea <JOEY Gutierrez Last Filed: 11/08/22 08:53> Respiratory: Respiratory: Denies dyspnea <JOEY Gutierrez Last Filed: 11/08/22 08:53> Gastrointestinal: Gastrointestinal: Reports as per HPI, Denies melena, Reports hematochezia, Denies constipation, Reports nausea and Reports vomiting <Luna Harris PA-C - Last Filed: 11/08/22 08:53> Genitourinary: Genitourinary: Denies hematuria and Denies dysuria <Luna Harris PA-C - Last Filed: 11/08/22 08:53> Musculoskeletal: Musculoskeletal: Denies numbness <YULISSA Gutierrez - Last Filed: 11/08/22 08:53> Integumentary/Breasts: Skin/Breast: Denies rash and Denies jaundice <Luna Harris PA-C - Last Filed: 11/08/22 08:53> Neurologic: Denies dizziness and Denies numbness <Luna Harris PA-C - Last Filed: 11/08/22 08:53> Endocrine: Endocrine: Denies palpitations <Luna Harris PA-C - Last Filed: 11/08/22 08:53> PMF Past Medical History Medical History: Medical History (Updated 11/08/22 @ 08:49 by Luna Harris PA-C) Anxiety Bipolar illness Depression Thyroid disease <Luna Harris PA-C - Last Filed: 11/08/22 08:53> Surgical History Surgical History: Surgical History (Updated 11/08/22 @ 08:48 by Luna Harris PA-C) H/O thyroidectomy Hx of tonsillectomy <Luna Harris PA-C - Last Filed: 11/08/22 08:53> Social History Social History: Social History Household Members: Spouse Do you presently have visiting nurse or other home services: No Alcohol intake: never Patient Tobacco Use Status: Never used Tobacco Smoked in Last 30 Days: No Use of substances other than those prescribed or required for medical reasons: No Currently Displaying Signs/Symptoms of Drug Intoxication Withdrawal: No Have you been hit, kicked, punched, or otherwise hurt by someone within the past year? If so, by whom?: No Do you feel safe in your current relationship?: Yes Is there a partner from a previous relationship who is making you feel unsafe now?: No Are you made to feel afraid or neglected: No Advance Directives: No Advance Directives Information Provided: No Do you have thoughts of harming others: None Do you have a plan to hurt others: No Plan Recently lost weight without trying: Unsure Nutrition Risks: No Nutritional Risk Patient : No : No Poor oral hygiene: No service: No <Luna Harris PA-C - Last Filed: 11/08/22 08:53> Meds Allergies/Adverse reactions: Allergies Allergy/AdvReac Type Severity Reaction Status Date / Time Penicillins Allergy Rash Verified 11/07/22 15:57 morphine AdvReac Headache Verified 11/07/22 20:22 <Luna Harris PA-C - Last Filed: 11/08/22 08:53> Active Medications: Current Medications Heparin Sodium (Porcine) (Heparin Sodium,Porcine 5,000 Unit/Ml Vial) 5,000 unit [facility] Hydromorphone HCl (Hydromorphone Hcl 0.5 Mg/0.5 Ml Syringe) 0.5 mg IVPUSH Q3H PRN; Protocol PRN Reason: Pain, Moderate(Pain Scale 4-6) Last Admin: 11/08/22 06:03 Dose: 0.5 mg Lactated Ringer's (Lr) 1,000 mls @ 100 mls/hr IVCONT .Q10H [facility] Last Infusion: 11/08/22 06:35 Dose: 100 mls/hr Piperacillin Sod/Tazobactam (Sod 3.375 gm/ Sodium Chloride) 50 mls @ 100 mls/hr IV Q6H [facility] Last Infusion: 11/08/22 07:06 Dose: Infused Morphine Sulfate (Morphine Sulfate 4 Mg/Ml Cartridge) 3 mg IVPUSH Q3H PRN; Protocol PRN Reason: Pain, Severe (Pain Scale 7-10) Ondansetron HCl (Ondansetron Hcl 4 Mg/2 Ml Vial) 4 mg IVPUSH Q8H PRN PRN Reason: nausea Sodium Chloride (0.9 % Sodium Chloride Flush 3 Ml Syringe) 3 ml IVFLUSH QSHIFT [facility] Last Admin: 11/07/22 23:57 Dose: 3 ml <Luna Harris PA-C - Last Filed: 11/08/22 08:53> Home medications: Home Medications Medication Instructions Recorded Confirmed Last Taken Type ascorbic acid (vitamin C) 500 mg 500 mg PO DAILY 11/07/22 11/07/22 Unknown History tablet (Vitamin C) ibuprofen 200 mg tablet 200 mg PO Q6H PRN Pain 11/07/22 11/07/22 Unknown History levothyroxine 88 mcg tablet 88 mcg PO DAILY 11/07/22 11/07/22 11/07/22 History losartan 25 mg tablet 25 mg PO DAILY 11/07/22 11/07/22 11/07/22 History omega 3-wsm-pik-fish oil 1,000 mg 1 cap PO DAILY 11/07/22 11/07/22 Unknown History (120 mg-180 mg) capsule (Fish Oil) propylene glycol 1 %-glycerin 0.3 1 drp ophthalmic (eye) DAILY PRN 11/07/22 11/07/22 Unknown History % eye drops (Artificial Tears Dry Eyes (glycerin-peg)) zolpidem 10 mg tablet 10 mg PO BEDTIME 11/07/22 11/07/22 Unknown History <JOEY Gutierrez Last Filed: 11/08/22 08:53> Physical Exam Vital Signs: Vital Signs: Last Vital Signs Temp 97.8 F 11/08/22 07:51 Pulse 57 11/08/22 07:51 Resp 20 11/08/22 07:51 BP 131/73 11/08/22 07:51 Pulse Ox 97 11/08/22 07:51 O2 Del Method Room Air 11/08/22 07:51 BMI result Body Mass Index 30.6 <Luna Harris PA-C - Last Filed: 11/08/22 08:53> Const: General: comfortable, no acute distress and alert <JOEY Gutierrez Last Filed: 11/08/22 08:53> Orientation/consciousness: patient oriented x3 <JOEY Gutierrez Last Filed: 11/08/22 08:53> Resp: Effort & Inspection: normal respiratory effort <JOEY Gutierrez Last Filed: 11/08/22 08:53> Cardio: Rate: regular rate <JOEY Gutierrez Last Filed: 11/08/22 08:53> GI: Inspection: No distended <JOEY Gutierrez Last Filed: 11/08/22 08:53> Palpation (GI): Soft to palpation, Tenderness to palpation present (GI) in the LLQ (marked) and suprapubicly; with no rebound tenderness, Guarding due to palpation present (GI) (voluntary LLQ) and not rigid <JOEY Gutierrez Last Filed: 11/08/22 08:53> Skin: General skin exam: no rashes or lesions noted <JOEY Gutierrez Last Filed: 11/08/22 08:53> Neuro: General: patient oriented x3 and moves all extremities <Luna Harris PA-C - Last Filed: 11/08/22 08:53> Results Results Labs: Short CBC 11/07/22 11/08/22 Range/Units 16:05 06:27 WBC 16.7 H 7.2 (4.8-10.8) X10*3/uL Hgb 14.7 12.1 (12.0-16.0) g/dl Hct 45.9 37.7 (37.0-47.0) % Plt Count 419 H 335 (160-400) X10*3/uL BMP 11/07/22 11/08/22 16:05 06:27 Sodium 139 142 Potassium 4.1 4.1 Chloride 108 111 H Carbon Dioxide 22 24 BUN 6 L 8 L Creatinine 0.77 0.68 Calcium 9.6 8.7 D Liver Function 11/07/22 Range/Units 16:05 Total Bilirubin 0.3 (0.0-1.0) mg/dL AST 16 (5-31) U/L ALT 12 (0-31) U/L Alkaline Phosphatase 103 (39-117) U/L Albumin 4.2 (3.5-5.0) g/dL Urine 11/07/22 Range/Units 18:56 Urine Color Yellow Urine Appearance Clear Urine pH 8.5 (5.0-9.0) Ur Specific [place] 1.015 (1.005-1.025) Urine Protein Negative (Neg-Trace) mg/dL Urine Glucose (UA) Negative (Negative) mg/dL <Luna Harris PA-C - Last Filed: 11/08/22 08:53> Abdomen CT scan report/results: report reviewed and image reviewed <JOEY Gutierrez Last Filed: 11/08/22 08:53> Assessment and Plan (1) Acute diverticulitis: Status: Acute <Luna Harris PA-C - Last Filed: 11/08/22 08:53> Has had lower abdominal pain and quadrant pain x2 days Was in the ER weeks ago for similar problem, given antibiotics, some improvement CT scan reviewed - consistent with acute diverticulitis with microperforation Exam otherwise benign IV antibiotics Bowel rest Seen and examined independently - agree with SUSAN Harris <Dylan Orourke MD - Last Filed: 11/09/22 08:11> 52 year old female with known diverticulitis with acute worsening of LLQ abd pain with leukocytosis and wall thickening, wall edema of the distal left colon, sigmoid colon and rectum with small amount of adjacent air. Patient was admitted to the surgical service for further treatment of the acute diverticulitis with microperforation. She has improved symptomatically this morning with supportive measures and her WBC has normalized. Will continue nonoperative measures with IV zosyn, IVF and bowel rest. Further plan dependent on clinical course. Discussion regarding repeat CT scan, need for urgent/emergent sigmoid resection if no further improvement and/or worsening of her condition. Patient understands and agrees with plan. <Luna Harris PA-C - Last Filed: 11/08/22 08:53> Time Spent With Patient Time: Total time managing care of this patient today ____ minutes. <Luna Harris PA-C - Last Filed: 11/08/22 08:53> Quality Stroke Does the patient have a stroke diagnosis?: No <JOEY Gutierrez Last Filed: 11/08/22 08:53> VTE Prior VTE?: No <JOEY Gutierrez Last Filed: 11/08/22 08:53> VTE Risk Level:: Medical - moderate - high <JOEY Gutierrez Last Filed: 11/08/22 08:53> VTE Device Contraindication: N/A - Device Ordered <Luna Harris PA-C - Last Filed: 11/08/22 08:53> VTE Drug Contraindication: N/A - Med Ordered <Luna Harris PA-C - Last Filed: 11/08/22 08:53> Procedures Date of Service Date of Service: 11/08/22 <Luna Harris PA-C - Last Filed: 11/08/22 08:53> 11/09/22 <Dylan Orourke MD - Last Filed: 11/09/22 08:11>
[2022-11-08] MEDS: Lactated Ringers 1,000 ML 100 ML IVCONT ×2 (09:31→17:07)
[2022-11-08] MEDS: Heparin Sodium,Porcine 5,000 UNIT/ML VIAL 5000 UNIT SUBCUT ×2 (09:31→17:07)
[2022-11-08] MEDS: 0.9 % Sodium Chloride Flush 3 ML SYRINGE IVFLUSH ×3 (09:32→21:56)
--- NOTE | 2022-11-08 15:21 | PM.EVENT ---
Event Note Date of Service: 11/08/22 Event Note: Seen on afternoon rounds Says she is more comfortable Still with some pain but better Abdomen soft, tender no lower abdomen but benign, no guarding rebound Stable vital signs, no fever Continue IV antibiotics and bowel rest Improving Explained above to patient and her at bedside Time Spent With Patient Time: Total time managing care of this patient today ____ minutes.
[2022-11-08 15:37] VITALS: BP 133/66; PULSE 59; RESP 18; TEMP 35.9; O2SAT 96
[2022-11-08 19:38] VITALS: BP 136/76; PULSE 64; RESP 18; TEMP 36.2; O2SAT 95
[2022-11-08] MEDS: Zolpidem Tartrate 5 MG TABLET PO (21:55)
[2022-11-09 03:32] VITALS: BP 137/81; PULSE 88; RESP 18; TEMP 36.4; O2SAT 92
[2022-11-09] MEDS: Heparin Sodium,Porcine 5,000 UNIT/ML VIAL 5000 UNIT SUBCUT ×3 (03:57→17:47)
[2022-11-09] MEDS: Piperacillin Sodium/Tazobactam 3.375 GM in 0.9 % Sodium Chloride 50 ML IV ×4 (03:58→22:10)
[2022-11-09] MEDS: Levothyroxine Sodium 88 MCG TABLET PO (06:08)
[2022-11-09] MEDS: Lactated Ringers 1,000 ML 100 ML IVCONT ×2 (06:10→17:34)
[2022-11-09 07:18] VITALS: BP 130/77; PULSE 79; RESP 16; TEMP 36.2; O2SAT 95
--- NOTE | 2022-11-09 08:08 | P.PNGS_ITS ---
Subjective Subjective Date of Service: 11/09/22 <Luna Harris PA-C - Last Filed: 11/09/22 08:10> 11/10/22 <Dylan Orourke MD - Last Filed: 11/10/22 15:22> Interval history: Pain overall improved but some discomfort when lying on left side. Denies nausea. Passing flatus. Feels hungry. <Luna Harris PA-C - Last Filed: 11/09/22 08:10> Physical Exam Vital Signs: Vital Signs: Last Vital Signs Temp 97.1 F 11/09/22 07:18 Pulse 79 11/09/22 07:18 Resp 16 11/09/22 07:18 BP 130/77 11/09/22 07:18 Pulse Ox 95 11/09/22 07:18 O2 Del Method Room Air 11/09/22 07:18 BMI result Body Mass Index 30.6 <Luna Harris PA-C - Last Filed: 11/09/22 08:10> Const: General: comfortable, no acute distress and alert <Luna Harris PA-C - Last Filed: 11/09/22 08:10> Orientation/consciousness: patient oriented x3 <JOEY Gutierrez Last Filed: 11/09/22 08:10> Resp: Effort & Inspection: normal respiratory effort <JOEY Gutierrez Last Filed: 11/09/22 08:10> GI: Inspection: No distended <JOEY Gutierrez Last Filed: 11/09/22 08:10> Palpation (GI): Soft to palpation, Tenderness to palpation present (GI) in the LLQ (improved), no guarding and not rigid <Luna Harris PA-C - Last Filed: 11/09/22 08:10> Percussion: Yes normal to percussion <JOEY Gutierrez Last Filed: 11/09/22 08:10> Skin: General skin exam: no rashes or lesions noted <JOEY Gutierrez Last Filed: 11/09/22 08:10> Neuro: General: patient oriented x3 and moves all extremities <Luna Harris PA-C - Last Filed: 11/09/22 08:10> Objective Data Active Medications Artificial Tears (Artificial Tears 15 Ml Drops) 1 drop EYE-BOTH DAILY PRN PRN Reason: Dry Eyes Heparin Sodium (Porcine) (Heparin Sodium,Porcine 5,000 Unit/Ml Vial) 5,000 unit SUBCUT Q8H [facility] Last Admin: 11/09/22 03:57 Dose: 5,000 unit Documented By: ARNULFO Hydromorphone HCl (Hydromorphone Hcl 0.5 Mg/0.5 Ml Syringe) 0.5 mg IVPUSH Q3H PRN; Protocol PRN Reason: Pain, Moderate(Pain Scale 4-6) Last Admin: 11/08/22 21:55 Dose: 0.5 mg Documented By: ARNULFO Lactated Ringer's (Lr) 1,000 mls @ 100 mls/hr IVCONT .Q10H [facility] Last Admin: 11/09/22 06:10 Dose: 100 mls/hr Documented By: ARNULFO Piperacillin Sod/Tazobactam (Sod 3.375 gm/ Sodium Chloride) 50 mls @ 100 mls/hr IV Q6H [facility] Last Infusion: 11/09/22 04:36 Dose: 0 mls/hr Documented By: ARNULFO Levothyroxine Sodium (Levothyroxine Sodium 88 Mcg Tablet) 88 mcg PO DAILY@0600 [facility] Last Admin: 11/09/22 06:08 Dose: 88 mcg Documented By: ARNULFO Losartan Potassium (Losartan Potassium 25 Mg Tablet) 25 mg PO DAILY [facility]; Protocol Morphine Sulfate (Morphine Sulfate 4 Mg/Ml Cartridge) 3 mg IVPUSH Q3H PRN; Protocol PRN Reason: Pain, Severe (Pain Scale 7-10) Ondansetron HCl (Ondansetron Hcl 4 Mg/2 Ml Vial) 4 mg IVPUSH Q8H PRN PRN Reason: nausea Sodium Chloride (0.9 % Sodium Chloride Flush 3 Ml Syringe) 3 ml IVFLUSH QSHIFT [facility] Last Admin: 11/08/22 21:56 Dose: 3 ml Documented By: ARNULFO Zolpidem Tartrate (Zolpidem Tartrate 5 Mg Tablet) 5 mg PO BEDTIME [facility] Last Admin: 11/08/22 21:55 Dose: 5 mg Documented By: ARNULFO <Luna Harris PA-C - Last Filed: 11/09/22 08:10> Labs CBC & Chem 7: 11/08/22 06:27 11/08/22 06:27 <Luna Harris PA-C - Last Filed: 11/09/22 08:10> Microbiology Microbiology Results: Microbiology 11/07/22 17:27 Blood Culture - Preliminary Blood - Venous No growth after 24 hours. 11/07/22 17:31 Blood Culture - Preliminary Blood - Venous No growth after 24 hours. <Luna Harris PA-C - Last Filed: 11/09/22 08:10> Procedures Date of Service Date of Service: 11/09/22 <Luna Harris PA-C - Last Filed: 11/09/22 08:10> 11/10/22 <Dylan Orourke MD - Last Filed: 11/10/22 15:22> Progress Note: A&P Assessment and plan (1) Acute diverticulitis: Status: Acute <Luna Harris PA-C - Last Filed: 11/09/22 08:10> Assessment and Plan: 52 year old female admitted with acute sigmoid diverticulitis with microperforation. Improving with nonoperative measures. Abd less tender this morning. Cont supportive measures- IV zosyn, IVF. Advance to clear liquids. OOB. <JOEY Gutierrez Last Filed: 11/09/22 08:10> Time Spent With Patient Time: Total time managing care of this patient today ____ minutes. <Luna Harris PA-C - Last Filed: 11/09/22 08:10> Quality Stroke Does the patient have a stroke diagnosis?: No <Luna Harris PA-C - Last Filed: 11/09/22 08:10> VTE Prior VTE?: No <JOEY Gutierrez Last Filed: 11/09/22 08:10> VTE Risk Level:: Medical - moderate - high <JOEY Gutierrez Last Filed: 11/09/22 08:10> VTE Device Contraindication: N/A - Device Ordered <JOEY Gutierrez Last Filed: 11/09/22 08: 10> VTE Drug Contraindication: N/A - Med Ordered <Luna Harris PA-C - Last Filed: 11/09/22 08:10>
--- NOTE | 2022-11-09 08:11 | P.PNGS_ITS ---
Subjective Subjective Date of Service: 11/09/22 Interval history: Feels much better Minimal residual pain Passing flatus Says she slept well Physical Exam Vital Signs: Vital Signs: Last Vital Signs Temp 97.1 F 11/09/22 07:18 Pulse 79 11/09/22 07:18 Resp 16 11/09/22 07:18 BP 130/77 11/09/22 07:18 Pulse Ox 95 11/09/22 07:18 O2 Del Method Room Air 11/09/22 07:18 BMI result Body Mass Index 30.6 Const: General: comfortable and no acute distress Resp: Effort & Inspection: normal respiratory effort Cardio: Rate: regular rate GI: Palpation (GI): Soft to palpation, not firm, Tenderness to palpation present (GI) (Mild tenderness, left lower quadrant and lower abdomen) and no guarding Objective Data Active Medications Artificial Tears (Artificial Tears 15 Ml Drops) 1 drop EYE-BOTH DAILY PRN PRN Reason: Dry Eyes Heparin Sodium (Porcine) (Heparin Sodium,Porcine 5,000 Unit/Ml Vial) 5,000 unit SUBCUT Q8H [facility] Last Admin: 11/09/22 03:57 Dose: 5,000 unit Documented By: ARNULFO Hydromorphone HCl (Hydromorphone Hcl 0.5 Mg/0.5 Ml Syringe) 0.5 mg IVPUSH Q3H PRN; Protocol PRN Reason: Pain, Moderate(Pain Scale 4-6) Last Admin: 11/08/22 21:55 Dose: 0.5 mg Documented By: ARNULFO Lactated Ringer's (Lr) 1,000 mls @ 100 mls/hr IVCONT .Q10H [facility] Last Admin: 11/09/22 06:10 Dose: 100 mls/hr Documented By: ARNULFO Piperacillin Sod/Tazobactam (Sod 3.375 gm/ Sodium Chloride) 50 mls @ 100 mls/hr IV Q6H [facility] Last Infusion: 11/09/22 04:36 Dose: 0 mls/hr Documented By: ARNULFO Levothyroxine Sodium (Levothyroxine Sodium 88 Mcg Tablet) 88 mcg PO DAILY@0600 [facility] Last Admin: 11/09/22 06:08 Dose: 88 mcg Documented By: ARNULFO Losartan Potassium (Losartan Potassium 25 Mg Tablet) 25 mg PO DAILY [facility]; Protocol Morphine Sulfate (Morphine Sulfate 4 Mg/Ml Cartridge) 3 mg IVPUSH Q3H PRN; Protocol PRN Reason: Pain, Severe (Pain Scale 7-10) Ondansetron HCl (Ondansetron Hcl 4 Mg/2 Ml Vial) 4 mg IVPUSH Q8H PRN PRN Reason: nausea Sodium Chloride (0.9 % Sodium Chloride Flush 3 Ml Syringe) 3 ml IVFLUSH QSHIFT [facility] Last Admin: 11/08/22 21:56 Dose: 3 ml Documented By: ARNULFO Zolpidem Tartrate (Zolpidem Tartrate 5 Mg Tablet) 5 mg PO BEDTIME [facility] Last Admin: 11/08/22 21:55 Dose: 5 mg Documented By: ARNULFO Labs 11/08/22 06:27 11/08/22 06:27 Microbiology Microbiology Results: Microbiology 11/07/22 17:27 Blood Culture - Preliminary Blood - Venous No growth after 24 hours. 11/07/22 17:31 Blood Culture - Preliminary Blood - Venous No growth after 24 hours. Procedures Date of Service Date of Service: 11/09/22 Progress Note: A&P Assessment and plan (1) Acute diverticulitis: Status: Acute Assessment and Plan: Much improved Minimal residual pain and tenderness Exam very benign No fever Clear liquids today any slowly advance as tolerated Continue IV Zosyn Clinically doing well Time Spent With Patient Time: Total time managing care of this patient today ____ minutes. Quality Stroke Does the patient have a stroke diagnosis?: No VTE Prior VTE?: No VTE Risk Level:: Medical - moderate - high VTE Device Contraindication: N/A - Device Ordered VTE Drug Contraindication: N/A - Med Ordered
[2022-11-09] MEDS: Losartan Potassium 25 MG TABLET PO (09:24)
[2022-11-09] MEDS: 0.9 % Sodium Chloride Flush 3 ML SYRINGE IVFLUSH ×3 (09:25→22:10)
[2022-11-09 15:19] VITALS: BP 154/80; PULSE 78; RESP 20; TEMP 36.3; O2SAT 96
[2022-11-09] MEDS: ondansetron HCL 4 MG/2 ML VIAL IVPUSH (15:38)
--- NOTE | 2022-11-09 18:01 | PC.NURSE ---
Pt advanced to clear liquid diet. Pt not tolerating diet; had episode of nausea/vomiting; zofran given with some effectiveness. Pt reporting abdominal pain during dinner; unable to eat. notified; pt now NPO and prn phenegran added.
[2022-11-09 18:30] VITALS: BP 116/75; PULSE 69; RESP 20; TEMP 36; O2SAT 92
[2022-11-09] MEDS: Zolpidem Tartrate 5 MG TABLET PO (22:10)
[2022-11-10 02:45] VITALS: BP 135/75; PULSE 86; RESP 20; TEMP 36.1; O2SAT 92
[2022-11-10] MEDS: Piperacillin Sodium/Tazobactam 3.375 GM in 0.9 % Sodium Chloride 50 ML IV ×4 (04:28→22:38)
[2022-11-10] MEDS: Heparin Sodium,Porcine 5,000 UNIT/ML VIAL 5000 UNIT SUBCUT ×3 (04:59→17:14)
[2022-11-10] MEDS: Levothyroxine Sodium 88 MCG TABLET PO (04:59)
[2022-11-10] MEDS: Lactated Ringers 1,000 ML 100 ML IVCONT ×2 (04:59→14:49)
--- NOTE | 2022-11-10 07:48 | PM.PNGS ---
Subjective Subjective Date of Service: 11/10/22 <Luna Harris PA-C - Last Filed: 11/10/22 07:49> 11/10/22 <Dylan Orourke MD - Last Filed: 11/10/22 08:39> Interval history: Had some nausea with clear liquids but improved today. Less abdominal pain. Had a BM yesterday. <Luna Harris PA-C - Last Filed: 11/10/22 07:49> Physical Exam Vital Signs: Vital Signs: Last Vital Signs Temp 96.9 F 11/10/22 02:45 Pulse 86 11/10/22 02:45 Resp 20 11/10/22 02:45 BP 135/75 11/10/22 02:45 Pulse Ox 92 11/10/22 02:45 O2 Del Method Room Air 11/10/22 02:45 BMI result Body Mass Index 30.6 <Luna Harris PA-C - Last Filed: 11/10/22 07:49> Const: General: comfortable, no acute distress and alert <Luna Harris PA-C - Last Filed: 11/10/22 07:49> Orientation/consciousness: patient oriented x3 <Luna Harris PA-C - Last Filed: 11/10/22 07:49> Resp: Effort & Inspection: normal respiratory effort <Luna Harris PA-C - Last Filed: 11/10/22 07:49> GI: Inspection: No distended <Luna Harris PA-C - Last Filed: 11/10/22 07:49> Palpation (GI): Soft to palpation, Tenderness to palpation present (GI) (very mild LLQ), no guarding and not rigid <Luna Harris PA-C - Last Filed: 11/10/22 07:49> Skin: General skin exam: no rashes or lesions noted <JOEY Gutierrez Last Filed: 11/10/22 07:49> Neuro: General: patient oriented x3 and moves all extremities <JOEY Gutierrez Last Filed: 11/10/22 07:49> Objective Data Active Medications Artificial Tears (Artificial Tears 15 Ml Drops) 1 drop EYE-BOTH DAILY PRN PRN Reason: Dry Eyes Heparin Sodium (Porcine) (Heparin Sodium,Porcine 5,000 Unit/Ml Vial) 5,000 unit SUBCUT Q8H [facility] Last Admin: 11/10/22 04:59 Dose: 5,000 unit Documented By: ARNULFO Hydromorphone HCl (Hydromorphone Hcl 0.5 Mg/0.5 Ml Syringe) 0.5 mg IVPUSH Q3H PRN; Protocol PRN Reason: Pain, Moderate(Pain Scale 4-6) Last Admin: 11/08/22 21:55 Dose: 0.5 mg Documented By: ARNULFO Lactated Ringer's (Lr) 1,000 mls @ 80 mls/hr IVCONT .[id number] [facility] Last Admin: 11/10/22 04:59 Dose: 100 mls/hr Documented By: ARNULFO Piperacillin Sod/Tazobactam (Sod 3.375 gm/ Sodium Chloride) 50 mls @ 100 mls/hr IV Q6H [facility] Last Infusion: 11/10/22 05:11 Dose: 0 mls/hr Documented By: ARNULFO Promethazine HCl 6.25 mg/ (Sodium Chloride) 50.25 mls @ 201 mls/hr IV Q6H PRN PRN Reason: Nausea and Vomiting Levothyroxine Sodium (Levothyroxine Sodium 88 Mcg Tablet) 88 mcg PO DAILY@0600 [facility] Last Admin: 11/10/22 04:59 Dose: 88 mcg Documented By: ARNULFO Losartan Potassium (Losartan Potassium 25 Mg Tablet) 25 mg PO DAILY [facility]; Protocol Last Admin: 11/09/22 09:24 Dose: 25 mg Documented By: ALONSO Morphine Sulfate (Morphine Sulfate 4 Mg/Ml Cartridge) 3 mg IVPUSH Q3H PRN; Protocol PRN Reason: Pain, Severe (Pain Scale 7-10) Ondansetron HCl (Ondansetron Hcl 4 Mg/2 Ml Vial) 4 mg IVPUSH Q8H PRN PRN Reason: nausea Last Admin: 11/09/22 15:38 Dose: 4 mg Documented By: ALONSO Sodium Chloride (0.9 % Sodium Chloride Flush 3 Ml Syringe) 3 ml IVFLUSH QSHIFT [facility] Last Admin: 11/09/22 22:10 Dose: 3 ml Documented By: ARNULFO Zolpidem Tartrate (Zolpidem Tartrate 5 Mg Tablet) 5 mg PO BEDTIME [facility] Last Admin: 11/09/22 22:10 Dose: 5 mg Documented By: ARNULFO <Luna Harris PA-C - Last Filed: 11/10/22 07:49> Labs CBC & Chem 7: 11/08/22 06:27 11/08/22 06:27 <Luna Harris PA-C - Last Filed: 11/10/22 07:49> Microbiology Microbiology Results: Microbiology 11/07/22 17:27 Blood Culture - Preliminary Blood - Venous No growth after 48 hours. 11/07/22 17:31 Blood Culture - Preliminary Blood - Venous No growth after 48 hours. <Luna Harris PA-C - Last Filed: 11/10/22 07:49> Procedures Date of Service Date of Service: 11/10/22 <Luna Harris PA-C - Last Filed: 11/10/22 07:49> 11/10/22 <Dylan Orourke MD - Last Filed: 11/10/22 08:39> Progress Note: A&P Assessment and plan (1) Acute diverticulitis: Status: Acute <Luna Harris PA-C - Last Filed: 11/10/22 07:49> Assessment and Plan: feels well this morning denies abdl pain good flatus tolerating clears ok to advance diet slowly abd soft and benign seen and examined independently - agree with SUSAN Harris <Dylan Orourke MD - Last Filed: 11/10/22 08:39> Assessment and Plan: Much improved Minimal residual pain and tenderness Exam very benign No fever Will advance to full liquids and then further as tolerated Continue IV Zosyn Clinically doing well <JOEY Gutierrez Last Filed: 11/10/22 07:49> Time Spent With Patient Time: Total time managing care of this patient today ____ minutes. <Luna Harris PA-C - Last Filed: 11/10/22 07:49> Quality Stroke Does the patient have a stroke diagnosis?: No <JOEY Gutierrez Last Filed: 11/10/22 07:49> VTE Prior VTE?: No <Luna Harris PA-C - Last Filed: 11/10/22 07:49> VTE Risk Level:: Medical - moderate - high <Luna Harris PA-C - Last Filed: 11/10/22 07:49> VTE Device Contraindication: N/A - Device Ordered <Luna Harris PA-C - Last Filed: 11/10/22 07:49> VTE Drug Contraindication: N/A - Med Ordered <Luna Harris PA-C - Last Filed: 11/10/22 07:49>
[2022-11-10 07:49] VITALS: BP 134/77; PULSE 79; RESP 16; TEMP 36.4; O2SAT 93
[2022-11-10 08:30] LABS: Hematocrit 40.6 % (37.0-47.0); Mean Corpuscular Hemoglobin 27.3 pg (27.0-33.0); Mean Corpuscular Volume 85.3 fL (80.0-98.0); Mean Platelet Volume 9.1 fL (9.4-12.3); Platelet Count 366 X10*3/uL (160-400); Red Blood Count 4.76 X10*6/uL (4.20-5.50); Red Cell Distribution Width 14.4 % (11.0-16.0); White Blood Count 10.8 X10*3/uL (4.8-10.8)
[2022-11-10 08:46] LABS: Anion Gap 16 (12-20); Blood Urea Nitrogen 4 mg/dL (9-16); Carbon Dioxide 22 mmol/L (22-29); Chloride 106 mmol/L (96-108); Creatinine Clr Calc Pharmacy 102.6; Estimated Glomerular Filt Rate > 60; Glucose Random 80 mg/dL (60-115); Potassium 3.5 mmol/L (3.3-5.1); Sodium 140 mmol/L (135-145)
[2022-11-10] MEDS: Losartan Potassium 25 MG TABLET PO (08:56)
--- NOTE | 2022-11-10 15:21 | PM.EVENT ---
Event Note Date of Service: 11/10/22 Event Note: Seen on afternoon rounds She says she continues to feel well Denies abdominal pain Denies nausea or vomiting Tolerating full liquids Abdomen soft She looks well Plan to advance diet tomorrow and possible DC more or over the week She and her understand the plan Time Spent With Patient Time: Total time managing care of this patient today ____ minutes.
[2022-11-10 15:31] VITALS: BP 130/78; PULSE 70; RESP 16; TEMP 36.3; O2SAT 95
[2022-11-10 20:00] VITALS: BP 129/74; PULSE 66; RESP 16; TEMP 36.6; O2SAT 93
[2022-11-10] MEDS: Zolpidem Tartrate 5 MG TABLET PO (21:47)
[2022-11-10] MEDS: 0.9 % Sodium Chloride Flush 3 ML SYRINGE IVFLUSH (23:38)
[2022-11-11] MEDS: Heparin Sodium,Porcine 5,000 UNIT/ML VIAL 5000 UNIT SUBCUT ×2 (02:24→09:00)
[2022-11-11 03:05] VITALS: BP 113/68; PULSE 73; RESP 15; TEMP 36.8; O2SAT 92
[2022-11-11] MEDS: Lactated Ringers 1,000 ML 80 ML IVCONT (04:33)
[2022-11-11] MEDS: Levothyroxine Sodium 88 MCG TABLET PO (05:35)
[2022-11-11] MEDS: Piperacillin Sodium/Tazobactam 3.375 GM in 0.9 % Sodium Chloride 50 ML IV ×2 (05:35→11:41)
[2022-11-11 07:31] VITALS: BP 126/74; PULSE 64; RESP 20; TEMP 36.8; O2SAT 95
--- NOTE | 2022-11-11 08:12 | PM.PNGS ---
Subjective Subjective Date of Service: 11/11/22 <Luna Harris PA-C - Last Filed: 11/11/22 08:14> 11/11/22 <Dylan Orourke MD - Last Filed: 11/11/22 08:16> Interval history: Feeling overall better but getting some crampy gas pains with food. Having diarrhea. No pain at rest. Nausea resolved. <Luna Harris PA-C - Last Filed: 11/11/22 08:14> Physical Exam Vital Signs: Vital Signs: Last Vital Signs Temp 98.2 F 11/11/22 07:31 Pulse 64 11/11/22 07:31 Resp 20 11/11/22 07:31 BP 126/74 11/11/22 07:31 Pulse Ox 95 11/11/22 07:31 O2 Del Method Room Air 11/11/22 07:31 BMI result Body Mass Index 30.6 <Luna Harris PA-C - Last Filed: 11/11/22 08:14> Const: General: comfortable, no acute distress and alert <Luna Harris PA-C - Last Filed: 11/11/22 08:14> Orientation/consciousness: patient oriented x3 <Luna Harris PA-C - Last Filed: 11/11/22 08:14> Resp: Effort & Inspection: normal respiratory effort <Luna Harris PA-C - Last Filed: 11/11/22 08:14> GI: Inspection: No distended <Luna Harris PA-C - Last Filed: 11/11/22 08:14> Palpation (GI): Soft to palpation, nontender, no guarding and not rigid <Luna Harris PA-C - Last Filed: 11/11/22 08:14> Skin: General skin exam: no rashes or lesions noted <JOEY Gutierrez Last Filed: 11/11/22 08:14> Neuro: General: patient oriented x3 and moves all extremities <JOEY Gutierrez Last Filed: 11/11/22 08:14> Objective Data Active Medications Artificial Tears (Artificial Tears 15 Ml Drops) 1 drop EYE-BOTH DAILY PRN PRN Reason: Dry Eyes Heparin Sodium (Porcine) (Heparin Sodium,Porcine 5,000 Unit/Ml Vial) 5,000 unit SUBCUT Q8H [facility] Last Admin: 11/11/22 02:24 Dose: 5,000 unit Documented By: OCTAVIO Hydromorphone HCl (Hydromorphone Hcl 0.5 Mg/0.5 Ml Syringe) 0.5 mg IVPUSH Q3H PRN; Protocol PRN Reason: Pain, Moderate(Pain Scale 4-6) Last Admin: 11/08/22 21:55 Dose: 0.5 mg Documented By: ARNULFO Lactated Ringer's (Lr) 1,000 mls @ 80 mls/hr IVCONT .[id number] [facility] Last Admin: 11/11/22 04:33 Dose: 80 mls/hr Documented By: OCTAVIO Piperacillin Sod/Tazobactam (Sod 3.375 gm/ Sodium Chloride) 50 mls @ 100 mls/hr IV Q6H [facility] Last Infusion: 11/11/22 06:06 Dose: 0 mls/hr Documented By: OCTAVIO Promethazine HCl 6.25 mg/ (Sodium Chloride) 50.25 mls @ 201 mls/hr IV Q6H PRN PRN Reason: Nausea and Vomiting Levothyroxine Sodium (Levothyroxine Sodium 88 Mcg Tablet) 88 mcg PO DAILY@0600 [facility] Last Admin: 11/11/22 05:35 Dose: 88 mcg Documented By: OCTAVIO Losartan Potassium (Losartan Potassium 25 Mg Tablet) 25 mg PO DAILY [facility]; Protocol Last Admin: 11/10/22 08:56 Dose: 25 mg Documented By: AYUSH Morphine Sulfate (Morphine Sulfate 4 Mg/Ml Cartridge) 3 mg IVPUSH Q3H PRN; Protocol PRN Reason: Pain, Severe (Pain Scale 7-10) Ondansetron HCl (Ondansetron Hcl 4 Mg/2 Ml Vial) 4 mg IVPUSH Q8H PRN PRN Reason: nausea Last Admin: 11/09/22 15:38 Dose: 4 mg Documented By: ALONSO Sodium Chloride (0.9 % Sodium Chloride Flush 3 Ml Syringe) 3 ml IVFLUSH QSHIFT [facility] Last Admin: 11/10/22 23:38 Dose: 3 ml Documented By: OCTAVIO Zolpidem Tartrate (Zolpidem Tartrate 5 Mg Tablet) 5 mg PO BEDTIME [facility] Last Admin: 11/10/22 21:47 Dose: 5 mg Documented By: OCTAVIO <Luna Harris PA-C - Last Filed: 11/11/22 08:14> Labs CBC & Chem 7: 11/10/22 08:07 11/10/22 08:07 <Luna Harris PA-C - Last Filed: 11/11/22 08:14> Labs: Laboratory Results - last 24 hr 11/10/22 11/10/22 08:07 08:07 MCV 85.3 MCH 27.3 MCHC 32.0 RDW 14.4 Plt Count 366 MPV 9.1 L Absolute Nucleated RBC 0.000 Nucleated RBC % (auto) 0.0 Anion Gap 16 Estim Creat Clear Calc 102.6 Estimated GFR > 60 Random Glucose 80 Calcium 9.0 <Luna Hraris PA-C - Last Filed: 11/11/22 08:14> Procedures Date of Service Date of Service: 11/11/22 <Luna Harris PA-C - Last Filed: 11/11/22 08:14> 11/11/22 <Dylan Orourke MD - Last Filed: 11/11/22 08:16> Progress Note: A&P Assessment and plan (1) Acute diverticulitis: Status: Acute <Luna Harris PA-C - Last Filed: 11/11/22 08:14> Assessment and Plan: feels well denies abdl pain tolerated full liquids advance diet as tolerated dw output colonoscopy - she is due possible dc home on PO abx <Dylan Orourke MD - Last Filed: 11/11/22 08:16> Assessment and Plan: Continues to improve without any appreciable tenderness on exam. Will advance to solid low residue diet. If tolerating, stble for dc to home on PO abx. Will reassess later today. <Luna Harris PA-C - Last Filed: 11/11/22 08:14> Time Spent With Patient Time: Total time managing care of this patient today ____ minutes. <JOEY Gutierrez Last Filed: 11/11/22 08:14> Quality Stroke Does the patient have a stroke diagnosis?: No <Luna Harris PA-C - Last Filed: 11/11/22 08:14> VTE Prior VTE?: No <Luna Harris PA-C - Last Filed: 11/11/22 08:14> VTE Risk Level:: Medical - moderate - high <Luna Harris PA-C - Last Filed: 11/11/22 08:14> VTE Device Contraindication: N/A - Device Ordered <Luna Harris PA-C - Last Filed: 11/11/22 08:14> VTE Drug Contraindication: N/A - Med Ordered <Luna Harris PA-C - Last Filed: 11/11/22 08:14>
[2022-11-11] MEDS: Losartan Potassium 25 MG TABLET PO (09:00)
[2022-11-11] MEDS: 0.9 % Sodium Chloride Flush 3 ML SYRINGE IVFLUSH (09:04)
--- NOTE | 2022-11-11 13:18 | PM.EVENT ---
Event Note Date of Service: 11/11/22 Event Note: continues to feel well tolerating diet good flatus denies abdl pain abd soft nontender she says she is ready to go home ok to dc home PO abx ffup in office in 2 weeks Time Spent With Patient Time: Total time managing care of this patient today ____ minutes.
--- NOTE | 2022-11-11 13:44 | MHC.CM.PN ---
PT MEDICALLY CLEARED FOR D/C HOME SELF-CARE W/ FOR TRANSPORT
--- NOTE | 2022-11-14 12:29 | P.DS_ITS ---
DS: Providers Provider Date of Service: 11/11/22 Date of admission: 11/07/22 19:13 Primary care physician: Marlene Rowan MD Attending physician on admission: Dylan Orourke Attending physician on discharge: Dylan Orourke DS: Diagnosis Discharge Diagnosis (1) Acute diverticulitis: Status: Acute DS: Summary Hospital Course Hospital Course: HPI AT ADMISSION: Carito Valentin is a 52 year old female who presented with worsening LLQ abdominal pain. Patient was seen at [facility] ED on 10/23/22 for LLQ pain. She was diagnosed with acute sigmoid diverticulitis with only mild inflammation of the sigmoid on CT scan. She was prescribed augmentin and discharged to home. She reports her LLQ pain was improving until yesterday when the pain acutely worsened and spread to her suprapubic region. It was associated with nausea, vomiting. She felt febrile but did not take her temperature. Due to the acute worsening and severity of the pain, she came back to the ED. Work up included CBC, BMP and LFTs which were significant for a leukocytosis of 16.7. CT scan abd/pelvis was performed which showed wall thickening, wall edema of the distal left colon, sigmoid colon and rectum with stranding of the adjacent fat with a small amount of air adjacent to the uterus on the right. This morning, she feels better with less abdominal pain. She denies nausea or vomiting. She had a colonoscopy over 10 years ago at [place] which was normal. HOSPITAL COURSE: Patient was admitted to the surgical service for further treatment of the acute diverticulitis with microperforation. She was treated with nonoperative measures with IV zosyn, IVF and bowel rest which she improved with. Her WBC normalized and her symptoms gradually improved and resolved. Her diet was advanced slowly to clear liquids, full liquids then solids. She began to move her bowels. On the day of discharge, she was tolerating a solid diet without any abdominal pain. Her abdomen was benign and soft and nontender. She felt ready for discharge. She was discharged to home on a PO course of Augmentin x 7 days. She is to follow up in the office in 2 weeks. Status at Discharge Functional status at discharge: independent ambulation Overall status at discharge: patient is back to baseline Time Spent with Patient Time attestation: Total time managing care of this patient today ____ minutes. Discharge coordination time: Less than 30 minutes Quality: Safe Use of Opioids Does Pt have an Active Cancer Diagnosis on the Problem List?: No Quality: Stroke Does the patient have a stroke diagnosis?: No Physical Exam Vital Signs: Vital Signs: Last Vital Signs Temp 98.2 F 11/11/22 07:31 Pulse 64 11/11/22 07:31 Resp 20 11/11/22 07:31 BP 126/74 11/11/22 07:31 Pulse Ox 95 11/11/22 07:31 O2 Del Method Room Air 11/11/22 07:31 BMI result Body Mass Index 30.6 Const: General: healthy appearing, comfortable, no acute distress and alert Orientation/consciousness: patient oriented x3 Resp: Effort & Inspection: normal respiratory effort GI: Inspection: No distended Palpation (GI): Soft to palpation, nontender, no guarding and not rigid Skin: General skin exam: no rashes or lesions noted Neuro: General: patient oriented x3 and moves all extremities Discharge Plan Discharge Anticipated Discharge Date/Time: 11/11/22 15:35 Patient Disposition: Home, Self-Care Discharge Diagnosis: acute sigmoid diverticulitis Referrals: Marlene Rowan MD [Primary Care Provider] - 1 Week Dylan Orourke MD [Physician] - 2 Weeks Discharge Medications: New amoxicillin-pot clavulanate 875-125 mg tablet 1 tab PO BID Qty: 14 0RF Continued levothyroxine 88 mcg tablet 88 mcg PO DAILY ascorbic acid (vitamin C) [Vitamin C] 500 mg Tablet 500 mg PO DAILY losartan 25 mg tablet 25 mg PO DAILY ibuprofen 200 mg Tablet 200 mg PO Q6H PRN (Reason: Pain) zolpidem 10 mg tablet 10 mg PO BEDTIME omega 1-hlz-qtn-fish oil [Fish Oil] 1,000 mg (120 mg-180 mg) Capsule 1 cap PO DAILY Artificial Tears(glycerin-peg) 1-0.3 % Drops 1 drp OPHTHALMIC (EYE) DAILY PRN (Reason: Dry Eyes) Discharge Orders: Discharge Order (Routine); Ordered 11/11/22 Ordered By: Dylan Orourke Diet: low residue diet Activity on Discharge: As tolerated Stand Alone Forms: Patient Portal Discharge page Activity Restrictions/Additional Instructions: Follow up in office in a week. ([phone]) Call Your Doctor If: ? ? -Your temperature exceeds 101.5? F? ? ? -You experience excessive pain or swelling ? ? -You have an unexpected reaction to medication ? ? -You experience continued vomiting/nausea Care Plan Goals: Return to baseline health and resume normal activities as tolerated. Health Concerns: Acute sigmoid diverticulitis Plan of Treatment: Supportive with IV transitioned to PO antibiotics Bowel rest F/u in office in 2 weeks Assessment: Improved Discharge Date/Time: 11/11/22 15:14
== END 2022-11-11 15:14 | disposition home or self-care (01) | DRG 244 ==
LOC: HO.ED 19:16 → HO.EDOVER 19:20 → HO.IMC 20:00
PROVIDERS: Physician Assistant Medical; Admitting Provider Surgery; Emergency Provider Internal Medicine; PCP Family Medicine; Visit Provider Surgery
DX: K57.20 Diverticulitis of large intestine with perforation and abscess without bleeding (principal); F31.9 Bipolar disorder, unspecified; Z20.822 Contact with and (suspected) exposure to COVID-19; Z79.890 Hormone replacement therapy; Z79.899 Other long term (current) drug therapy
CPT/HCPCS: 36415; 74176; 80048; 80053; 81001; 81003; 83605; 83735; 85025; 85027; 87040; 87635; 99285; J1170; J1643; J1885; J2405; J2543

== ENCOUNTER → 2022-11-07 19:13 | Outpatient (BNV) | payer OTHER, SELFPAY | PROVIDERS: Admitting Provider Surgery; Emergency Provider Internal Medicine; Visit Provider Surgery | DX: K57.92 Diverticulitis of intestine, part unspecified, without perforation or abscess without bleeding (principal) | CPT/HCPCS: 99222; 99231; 99232; 99238; 99499 ==

== ENCOUNTER 2022-11-16 18:11 | Emergency (ER) | payer OTHER, SELFPAY ==
--- NOTE | ~2022-11-16 | CT_ITS ---
EXAMINATION: CT ABDOMEN AND PELVIS WITH CONTRAST CLINICAL INFORMATION: Abdominal pain. COMPARISON: None available. TECHNIQUE: Multidetector volumetric images were obtained from the superior aspect of the liver through the pubic symphysis following administration 85 mL of Omnipaque 350 intravenous contrast. Sagittal and coronal reformatted images were obtained on the technologist's workstation. Oral contrast: No This CT examination was performed using dose optimization techniques as appropriate, variously including the following: *Automated exposure control. *Adjustment of mA and/or kV according to patient size (this includes techniques or standardized protocols for targeted exams where dose is matched to indication/reason for exam; i.e. extremities or head). *Use of iterative reconstruction technique. DLP: 708 mGy-cm. FINDINGS: LUNG BASES: There is atelectasis and/or scarring at the left lung base. LIVER, GALLBLADDER, AND BILIARY TREE: The liver is normal in size, shape, and attenuation. No focal hepatic lesion or biliary ductal dilatation is present. The gallbladder is unremarkable with no evidence of radiopaque gallstones, gallbladder wall thickening, or obvious pericholecystic inflammatory changes. PANCREAS: Unremarkable. SPLEEN: Unremarkable. ADRENAL GLANDS: Unremarkable. KIDNEYS AND URETERS: The kidneys are normal in size, shape, and attenuation. No hydronephrosis, hydroureter, or calculi seen. No perinephric stranding. BLADDER: Unremarkable. GASTROINTESTINAL TRACT: There is diffuse colonic thickening extending to the rectum. The appendix is visualized and is within normal limits. There are diverticula of the distal descending and proximal sigmoid colon without diverticulitis. ABDOMINAL WALL: No significant hernia is appreciated. LYMPH NODES: Normal. VASCULAR: Unremarkable. PELVIC VISCERA: Unremarkable. OSSEOUS STRUCTURES: Unremarkable. CT/CT abdomen pelvis w IV con IMPRESSION: Diffuse colonic thickening extending to the rectum consistent with a colitis of uncertain etiology. Diverticula of the distal descending and proximal sigmoid colon without diverticulitis Fleischner guidelines were followed.
[2022-11-16 18:26] VITALS: BP 138/90; PULSE 90; RESP 18; TEMP 36.8; O2SAT 99; BMI 28.6
--- NOTE | 2022-11-16 18:27 | ED.ABDPAIN ---
HPI - Abdominal Pain General Chief Complaint: Abdominal Pain Stated Complaint: abdominal pain Time Seen by Provider: 11/16/22 19:46 Source: patient Mode of arrival: ambulatory Limitations: no limitations History of Present Illness HPI narrative: Patient's history of microperforation diverticulitis admitted on 11/07 discharged on 11/14 who is doing good on antibiotics earlier today patient had 2 normal bowel movements and 3rd was watery with blood in the stool with increased pain in the lower abdomen no fever no chills feels hungry no abdominal distention Related Data Home Medications Medication Instructions Recorded Confirmed ascorbic acid (vitamin C) 500 mg 500 mg PO DAILY 11/07/22 11/07/22 tablet (Vitamin C) ibuprofen 200 mg tablet 200 mg PO Q6H PRN Pain 11/07/22 11/07/22 levothyroxine 88 mcg tablet 88 mcg PO DAILY 11/07/22 11/07/22 losartan 25 mg tablet 25 mg PO DAILY 11/07/22 11/07/22 omega 6-qpe-vov-fish oil 1,000 mg 1 cap PO DAILY 11/07/22 11/07/22 (120 mg-180 mg) capsule (Fish Oil) propylene glycol 1 %-glycerin 0.3 1 drp ophthalmic (eye) DAILY PRN 11/07/22 11/07/22 % eye drops (Artificial Tears Dry Eyes (glycerin-peg)) zolpidem 10 mg tablet 10 mg PO BEDTIME 11/07/22 11/07/22 Previous Rx's Medication Instructions Recorded amoxicillin 875 mg-potassium 1 tab PO BID #14 tabs 11/11/22 clavulanate 125 mg tablet oxycodone 5 mg tablet 5 mg PO Q6H PRN pain #20 tabs 11/16/22 Allergies Allergy/AdvReac Type Severity Reaction Status Date / Time Penicillins Allergy Rash Verified 11/07/22 15:57 morphine AdvReac Headache Verified 11/07/22 20:22 Review of Systems Review of Systems Yes all other systems are reviewed and are negative [facility] Past Medical History Medical History Anxiety Bipolar illness Depression Hypertension Thyroid disease Surgical History H/O thyroidectomy Hx of tonsillectomy Social History Social History Household Members: Spouse Do you presently have visiting nurse or other home services: No Alcohol intake: never Patient Tobacco Use Status: Never used Tobacco Smoked in Last 30 Days: No Use of substances other than those prescribed or required for medical reasons: No Advance Directives: No Advance Directives Information Provided: Yes Patient : No service: No Physical Exam ED Vital Signs: Vital Signs - 24 hr 11/16/22 18:26 11/16/22 19:45 11/16/22 21:24 Temperature 98.3 F 98.2 F Pulse Rate 90 96 83 Respiratory Rate 18 16 20 Blood Pressure 138/90 H 109/71 120/79 Pulse Oximetry 99 96 96 Oxygen Delivery Method Room Air Room Air Room Air 11/16/22 23:07 Temperature Pulse Rate 65 Respiratory Rate 17 Blood Pressure 113/69 Pulse Oximetry 95 Oxygen Delivery Method Room Air BMI result Body Mass Index 28.6 Appearance: Alert. Oriented X3. No acute distress. Eyes: PERRLA, No Nystagmus ENT: Pharynx normal. Oral Mucosa moist Neck: Normal inspection. Neck supple. CVS: Normal heart rate and rhythm. Pulses normal. Respiratory: No respiratory distress. Equal air entry bilateral, no wheezing/rales/rhonchi Abdomen: Soft and mild tenderness suprapubic area. No rebound tenderness or guarding Bowel sounds are present, no mass palpable, no CVA tenderness Skin: Skin warm and dry. Normal skin color. Normal skin turgor. Extremities: No lower extremity edema. No calf tenderness Neuro: Oriented X 3. Course Course Course Narrative: RME: 52-year-old female with a past medical history of acute diverticulitis with microperforation discharged from our facility on 11/14/22 after being treated conservatively with IV antibiotics, presenting to the ED complaining of continued left lower quadrant abdominal pain, nausea, diarrhea, and bloody BMs. Patient still taking p.o. Augmentin Patient appears uncomfortable Labs, UA, lactic/blood cultures ordered Full HPI, ROS and PE to be performed by primary ED provider. Medical Decision Making Medical Decision Making MDM Narrative: Patient with acute lower abdominal pain with watery diarrhea CT scan was done which showed colitis no diverticulitis or free air labs are stable discharge patient home advised to continue antibiotics follow up with surgeon/PCP Differential Diagnosis Differential Diagnoses: The differential diagnosis associated with the presentation includes Diverticulitis/perforation/colitis Lab Data MDM Lab Attestation statement: I reviewed the patient's lab results. 11/16/22 20:38 11/16/22 20:38 Labs: Lab Results 11/16/22 11/16/22 11/16/22 Range/Units 20:38 20:38 20:38 WBC 9.5 (4.8-10.8) X10*3/uL RBC 5.01 (4.20-5.50) X10*6/uL Hgb 13.8 (12.0-16.0) g/dl Hct 42.8 (37.0-47.0) % MCV 85.4 (80.0-98.0) fL MCH 27.5 (27.0-33.0) pg MCHC 32.2 (31.0-35.0) g/dl RDW 14.7 (11.0-16.0) % Plt Count 402 H (160-400) X10*3/uL MPV 8.9 L (9.4-12.3) fL Immature Gran % (Auto) 0.8 H (0.0-0.4) % Neut % (Auto) 67.1 (45-73) % Lymph % (Auto) 17.6 L (20-40) % [place] % (Auto) 11.7 H (2-11) % Eos % (Auto) 2.3 (0-4) % Baso % (Auto) 0.5 (0-2) % Lymph # (Auto) 1.7 (1.2-4.9) X10*3/uL [place] # (Auto) 1.1 (0.1-1.2) X10*3/uL Eos # (Auto) 0.2 (0.0-0.4) X10*3/uL Baso # (Auto) 0.1 (0.0-0.2) X10*3/uL Abs Immat Gran (auto) 0.08 H (0.00-0.03) X10*3/uL Absolute Neuts (auto) 6.4 (2.0-8.3) x10*3/uL Absolute Nucleated RBC 0.000 (0.0-0.012) X10*3/uL Nucleated RBC % (auto) 0.0 (0.0-0.2) /100WBC Sodium 140 (135-145) mmol/L Potassium 3.8 (3.3-5.1) mmol/L Chloride 108 (96-108) mmol/L Carbon Dioxide 24 (22-29) mmol/L Anion Gap 12 (12-20) BUN 7 L (9-16) mg/dL Creatinine 0.79 (0.5-1.4) mg/dL Estim Creat Clear Calc 93.1 Estimated GFR > 60 Random Glucose 97 (60-115) mg/dL Lactic Acid 1.9 (0.5-2.0) mmol/L Calcium 9.5 (8.4-10.2) mg/dL Magnesium 2.3 (1.6-2.6) mg/dL Total Bilirubin 0.3 (0.0-1.0) mg/dL Direct Bilirubin 0.1 (0.0-0.5) mg/dL AST 21 (5-31) U/L ALT 22 (0-31) U/L Alkaline Phosphatase 89 (39-117) U/L Total Protein 7.6 (6.5-8.0) g/dL Albumin 4.1 (3.5-5.0) g/dL Lipase 18 (8-78) U/L Medications Administered Discontinued Medications Generic Name Dose Route Start Last Admin Trade Name Freq PRN Reason Stop Dose Admin Hydromorphone HCl 1 mg 11/16/22 20:31 11/16/22 21:26 Hydromorphone Hcl 1 Mg/Ml Syringe IVPUSH 11/16/22 20:32 1 mg ONCE ONE Administration Protocol Iohexol 100 ml 11/16/22 21:20 11/16/22 21:20 Iohexol 350 Mg/Ml 100 Ml Infus..Btl IV 11/16/22 21:21 85 ml ONCE ONE Administration Ondansetron HCl 4 mg 11/16/22 20:31 11/16/22 21:25 Ondansetron Hcl 4 Mg/2 Ml Vial IVPUSH 11/16/22 20:32 4 mg ONCE ONE Administration Discharge Plan Discharge Clinical Impression: Colitis Patient Disposition: Home, Self-Care Instructions: Colitis (ED) Additional Instructions: Continue medication ,have probiotics/yogurt Drink plenty of fluids Follow-up with a back feeder [employer] line if not better Prescriptions: New oxycodone 5 mg tablet 5 mg PO Q6H PRN (Reason: pain) Qty: 20 0RF Rx Instructions: Partial Fill upon patient request. No Action levothyroxine 88 mcg tablet 88 mcg PO DAILY ascorbic acid (vitamin C) [Vitamin C] 500 mg Tablet 500 mg PO DAILY losartan 25 mg tablet 25 mg PO DAILY ibuprofen 200 mg Tablet 200 mg PO Q6H PRN (Reason: Pain) zolpidem 10 mg tablet 10 mg PO BEDTIME omega 0-bjy-eki-fish oil [Fish Oil] 1,000 mg (120 mg-180 mg) Capsule 1 cap PO DAILY Artificial Tears(glycerin-peg) 1-0.3 % Drops 1 drp OPHTHALMIC (EYE) DAILY PRN (Reason: Dry Eyes) amoxicillin-pot clavulanate 875-125 mg tablet 1 tab PO BID Qty: 14 0RF Interventions: ED Discharge Assessment Last Done: 11/16/22 23:07 Discharge Date/Time: 11/16/22 23:13
[2022-11-16 19:45] VITALS: BP 109/71; PULSE 96; RESP 16; TEMP 36.8; O2SAT 96
[2022-11-16 20:47] LABS: MANUAL DIFF FLAG NO
[2022-11-16 20:49] LABS: Basophils Absolute Auto 0.1 X10*3/uL (0.0-0.2); Basophils Percent Auto 0.5 % (0-2); Eosinophils Absolute Auto 0.2 X10*3/uL (0.0-0.4); Eosinophils Percent Auto 2.3 % (0-4); Hematocrit 42.8 % (37.0-47.0); Hemoglobin 13.8 g/dl (12.0-16.0); Imm Gran Abs Auto 0.08 X10*3/uL (0.00-0.03); Imm Gran Pct Auto 0.8 % (0.0-0.4); Lymphocytes Absolute Auto 1.7 X10*3/uL (1.2-4.9); Lymphocytes Percent Auto 17.6 % (20-40); Mean Corpuscular HGB Conc 32.2 g/dl (31.0-35.0); Mean Corpuscular Hemoglobin 27.5 pg (27.0-33.0); Mean Corpuscular Volume 85.4 fL (80.0-98.0); Mean Platelet Volume 8.9 fL (9.4-12.3); Monocytes Absolute Auto 1.1 X10*3/uL (0.1-1.2); Monocytes Percent Auto 11.7 % (2-11); Neutrophils Absolute Auto 6.4 x10*3/uL (2.0-8.3); Neutrophils Percent Auto 67.1 % (45-73); Platelet Count 402 X10*3/uL (160-400); Red Blood Count 5.01 X10*6/uL (4.20-5.50); Red Cell Distribution Width 14.7 % (11.0-16.0); White Blood Count 9.5 X10*3/uL (4.8-10.8)
[2022-11-16 20:55] LABS: Lactic Acid 1.9 mmol/L (0.5-2.0)
[2022-11-16 21:00] LABS: Alanine Aminotransferase 22 U/L (0-31); Albumin Level 4.1 g/dL (3.5-5.0); Alkaline Phosphatase 89 U/L (39-117); Anion Gap 12 (12-20); Aspartate Amino Transferase 21 U/L (5-31); Bilirubin Direct 0.1 mg/dL (0.0-0.5); Bilirubin Total 0.3 mg/dL (0.0-1.0); Blood Urea Nitrogen 7 mg/dL (9-16); Calcium 9.5 mg/dL (8.4-10.2); Carbon Dioxide 24 mmol/L (22-29); Chloride 108 mmol/L (96-108); Creatinine Clr Calc Pharmacy 93.1; Estimated Glomerular Filt Rate > 60; Glucose Random 97 mg/dL (60-115); Lipase 18 U/L (8-78); Magnesium 2.3 mg/dL (1.6-2.6); Potassium 3.8 mmol/L (3.3-5.1); Sodium 140 mmol/L (135-145); Total Protein 7.6 g/dL (6.5-8.0)
[2022-11-16] MEDS: iohexoL 350 MG/ML 100 ML INFUS..BTL IV (21:20)
[2022-11-16 21:24] VITALS: BP 120/79; PULSE 83; RESP 20; O2SAT 96
[2022-11-16] MEDS: ondansetron HCL 4 MG/2 ML VIAL IVPUSH (21:25)
[2022-11-16] MEDS: HYDROmorphone HCl 1 MG/ML SYRINGE IVPUSH (21:26)
[2022-11-16 23:07] VITALS: BP 113/69; PULSE 65; RESP 17; O2SAT 95
== END 2022-11-16 23:13 | disposition home or self-care (01) ==
PROVIDERS: Physician Assistant; Emergency Provider Internal Medicine
DX: K52.9 Noninfective gastroenteritis and colitis, unspecified (principal); Z79.899 Other long term (current) drug therapy
CPT/HCPCS: 36415; 74177; 80048; 80076; 83605; 83690; 83735; 85025; 87040; 99284; J1170; J2405; Q9967

== ENCOUNTER 2022-11-30 13:02 | Outpatient (AMB) | payer OTHER, SELFPAY ==
--- NOTE | 2022-11-30 13:21 | MHC.OFFVIS ---
Intake Vital Signs 11/30/22 13:29 Height 5 ft 8 in Weight 184 lb 4 oz BMI 28.0 BP 132/86 Blood Pressure Location Lt brachial Position Sitting Pulse 65 Intake Visit Reasons: diverticulitis & colitis Intake Note: Patient c/o: went to ED due to abdominal pain, onset since 10/2022, admits to nausea, vomit, diarrhea, sensation of bm, headaches, was Rx antibiotics was fine for a few then the pain came back, currently has mild pain in the abdomen, admits to blood in stool Sty[employer] Dehydration Reactor Operator Required: Yes Styrene Dehydration Reactor Operator Language: Jig Grinder Name: Bridgette ZAMUDIO Information Interpreted: non-clinical & clinical Accompanied by: Family/Other Allergies Penicillins Allergy (Verified 11/30/22 13:28) Rash morphine Adverse Reaction (Verified 11/30/22 13:28) Headache Medication List - Last Reconciled 11/30/22 by Dylan Orourke MD amoxicillin-pot clavulanate 875-125 mg 1 tab PO BID ascorbic acid (vitamin C) (Vitamin C) 500 mg PO DAILY ibuprofen 200 mg PO Q6H PRN levothyroxine 88 mcg PO DAILY losartan 25 mg PO DAILY omega 3-cwo-xid-fish oil 1,000 mg (120 mg-180 mg) (Fish Oil) 1 cap PO DAILY oxycodone 5 mg PO Q6H PRN propylene glycol-glycerin 1-0.3 % (Artificial Tears (glycerin-peg)) 1 drp ophthalmic (eye) DAILY PRN sodium,potassium,mag sulfates 17.5-3.13-1.6 gram (Suprep Bowel Prep Kit) DILUTE; drink full amount early evening before AND next morning at least 2 hr before procedure; follow w 960 mL water PO zolpidem 10 mg PO BEDTIME HPI diverticulitis & colitis HPI Details 52-year-old female here for follow-up. She was admitted to the hospital from November 08 to November 14 because of left lower quadrant pain. Her CT scan had suggested diverticulitis. She had some thickening of sigmoid, part of the distal left colon and the proximal rectum at that time with note of small amount of extraluminal air suggestive of microperforation She was placed on IV antibiotics and had significant improvement. She was essentially asymptomatic on discharge. She states that she has been doing well at home. She describes a little bit of mild occasional left lower quadrant sharp pains. She has good oral intake. She has good bowel movements. She has had no fever. She does admit to some constipation. [facility] Medical History Anxiety Bipolar illness Depression Hypertension Thyroid disease Surgical History H/O thyroidectomy Hx of tonsillectomy Social History Household Members: Spouse Do you presently have visiting nurse or other home services: No Alcohol intake: never Patient Tobacco Use Status: Never used Tobacco service: No Review of Systems Const Denies chills and Denies fever(s) Card Denies chest pain, Denies dyspnea and Denies dyspnea on exertion Resp Denies cough, Denies dyspnea and Denies dyspnea on exertion GI Denies hematochezia, Denies change in bowel habits and Reports constipation Denies hematuria Musc Denies back pain and Denies limited range of motion Neuro Denies focal weakness and Denies convulsions Psych Denies depression and Denies mood swings Physical Exam Vital Signs: Last Vital Signs Pulse 65 11/30/22 13:29 BP 132/86 11/30/22 13:29 BMI result Body Mass Index 28.0 Const Other: Looks well General: comfortable and no acute distress Resp Effort & Inspection: normal respiratory effort Cardio Rate: regular rate GI Palpation (GI): Soft to palpation, not firm and nontender Assessment & Plan Assessment & Plan (1) Diverticulitis: Code(s): K57.92 - Diverticulitis of intestine, part unspecified, without perforation or abscess without bleeding Plan: She was admitted for left lower quadrant pain last November 08 with signs of diverticulitis with a microperforation. She is doing very well at this time She is asymptomatic and has a very benign exam She is way due for her colonoscopy as her last 1 was more than 10 years ago in [place]. I told her that we will do but we will allow for at least 6 weeks of interval since her episode of diverticulitis I reviewed with her the technique of colonoscopy. I explained the risks including but not limited to bleeding and perforation, as well as the benefits and alternatives. She understands and wants to proceed. I will prescribe her Colace and Metamucil for her constipation Medications: New sodium,potassium,mag sulfates 17.5-3.13-1.6 gram (Suprep Bowel Prep Kit) DILUTE; drink full amount early evening before AND next morning at least 2 hr before procedure; follow w 960 mL water PO 354 mL 0RF Coding Level of Care Code Est Pt Level 3 (53071) Diagnoses Diverticulitis K57.92
[2022-11-30 13:29] VITALS: BP 132/86; PULSE 65; BMI 28.0
== END 2022-11-30 14:02 | disposition home or self-care (01) ==
PROVIDERS: PCP Family Medicine; Visit Provider Surgery
DX: K57.92 Diverticulitis of intestine, part unspecified, without perforation or abscess without bleeding (principal)
CPT/HCPCS: 99213

== ENCOUNTER → 2022-11-30 13:02 | Outpatient (BNVA) | payer OTHER, SELFPAY | PROVIDERS: PCP Family Medicine; Visit Provider Surgery | DX: K57.92 Diverticulitis of intestine, part unspecified, without perforation or abscess without bleeding (principal) | CPT/HCPCS: 99212 ==

== ENCOUNTER 2023-01-27 06:18 | Day surgery (SDC) | payer OTHER, SELFPAY ==
[2023-01-24 10:12] VITALS: BMI 28.0
--- NOTE | 2023-01-26 10:04 | P.CONAN_ITS ---
Documented by User: Karen Tyler NP 01/26/23 10:05 HPI - Anesthesia Eval Consult details Narrative: 52yo F for Colonoscopy, Possible Polypectomy PMFSH Active Problems Active Problems: All Active Problems (Updated 11/19/22 @ 00:02 by Lupillo Johnson) Thyroid disease (Acute) H/O thyroidectomy (Acute) Depression (Acute) Bipolar illness (Acute) Anxiety (Acute) Past Medical History Medical History Hypertension Thyroid disease Depression Bipolar illness Anxiety Surgical History Surgical History S/P LASIK surgery of both eyes Tubal ligation status H/O colonoscopy Hx of tonsillectomy H/O thyroidectomy Social History Social History Household Members: Spouse Do you presently have visiting nurse or other home services: No Alcohol intake: never Patient Tobacco Use Status: Never used Tobacco Use of substances other than those prescribed or required for medical reasons: No Are you DNR?: No Advance Directives: No Advance Directives Information Provided: Yes service: No Meds Allergies Allergy/AdvReac Type Severity Reaction Status Date / Time Penicillins Allergy Rash Verified 01/27/23 06:50 morphine AdvReac Headache Verified 01/27/23 06:50 Home Medications Medication Instructions Recorded Confirmed Last Taken Type ascorbic acid (vitamin C) 500 mg 500 mg PO DAILY 11/07/22 01/27/23 Unknown History tablet (Vitamin C) ibuprofen 200 mg tablet 200 mg PO Q6H PRN Pain 11/07/22 01/27/23 01/20/23 History levothyroxine 88 mcg tablet 88 mcg PO DAILY 11/07/22 01/27/23 01/27/23 History losartan 25 mg tablet 25 mg PO DAILY 11/07/22 01/27/23 11/07/22 History omega 6-vwd-siy-fish oil 1,000 mg 1 cap PO DAILY 11/07/22 01/27/23 01/13/23 History (120 mg-180 mg) capsule (Fish Oil) propylene glycol 1 %-glycerin 0.3 1 drp ophthalmic (eye) DAILY PRN 11/07/22 01/27/23 Unknown History % eye drops (Artificial Tears Dry Eyes (glycerin-peg)) zolpidem 10 mg tablet 10 mg PO BEDTIME 11/07/22 01/27/23 Unknown History Exam Exam Date and Time: January 26, 2023 1004 Height,Weight and Vital Signs: Height 5 ft 8 in Weight 83.461 kg Pertinent Lab Results Pertinent Lab Results: Laboratory Tests 11/16/22 20:38 WBC 9.5 Hgb 13.8 Hct 42.8 Plt Count 402 H Sodium 140 Potassium 3.8 Chloride 108 Carbon Dioxide 24 BUN 7 L Creatinine 0.79 Assessment and Plan Assessment Anesthesia Assessment: Chart Reviewed Documented by User: Sharon Ward MD 01/27/23 07:34 [facility] Past Medical History Medical History Hypertension Thyroid disease Depression Bipolar illness Anxiety Family History Family history of problems with anesthesia: No Surgical History Surgical History S/P LASIK surgery of both eyes Tubal ligation status H/O colonoscopy Hx of tonsillectomy H/O thyroidectomy History of Problems with Anesthesia: No Social History Social History Household Members: Spouse Do you presently have visiting nurse or other home services: No Alcohol intake: never Patient Tobacco Use Status: Never used Tobacco Use of substances other than those prescribed or required for medical reasons: No Are you DNR?: No Advance Directives: No Advance Directives Information Provided: Yes service: No Meds Allergies Allergy/AdvReac Type Severity Reaction Status Date / Time Penicillins Allergy Rash Verified 01/27/23 06:50 morphine AdvReac Headache Verified 01/27/23 06:50 Home Medications Medication Instructions Recorded Confirmed Last Taken Type ascorbic acid (vitamin C) 500 mg 500 mg PO DAILY 11/07/22 01/27/23 Unknown History tablet (Vitamin C) ibuprofen 200 mg tablet 200 mg PO Q6H PRN Pain 11/07/22 01/27/23 01/20/23 History levothyroxine 88 mcg tablet 88 mcg PO DAILY 11/07/22 01/27/23 01/27/23 History losartan 25 mg tablet 25 mg PO DAILY 11/07/22 01/27/23 11/07/22 History omega 3-nij-nsy-fish oil 1,000 mg 1 cap PO DAILY 11/07/22 01/27/23 01/13/23 History (120 mg-180 mg) capsule (Fish Oil) propylene glycol 1 %-glycerin 0.3 1 drp ophthalmic (eye) DAILY PRN 11/07/22 01/27/23 Unknown History % eye drops (Artificial Tears Dry Eyes (glycerin-peg)) zolpidem 10 mg tablet 10 mg PO BEDTIME 11/07/22 01/27/23 Unknown History Exam Airway Mallampati Class: III TM Dist: >3cm Neck ROM: Full Denture: Upper Heart: rrr Lungs: cta Assessment and Plan Assessment Anesthesia Assessment: Anesthesia Plan Discussed Final Anesthetic Review Family History of Problems with Anesthesia: No History of Problems with Anesthesia: No NPO: Yes ASA Class: III Final Preanesthetic Review: No Changes in Pt Med Stat, Meds/Allgs Chart Reviewe d, Consent Obtained/Reviewed and Anes Risks/Benef Reviewed Patient Risk: Low Procedure Risk: Low Anesthetic Plan Anesthetic Plan: GA Disposition: Standard PACU
--- NOTE | 2023-01-27 | ECG_ITS ---
Test Reason : ppreop Blood Pressure : / mmHG Vent. Rate : 063 BPM Atrial Rate : 063 BPM P-R Int : 168 ms QRS Dur : 078 ms QT Int : 466 ms P-R-T Axes : 031 030 -05 degrees QTc Int : 476 ms Normal sinus rhythm Low voltage QRS Nonspecific T wave abnormality Abnormal ECG No previous ECGs available Referred By: Sharon Ward Electronically Signed By:PEDRO EPSTEIN MD
--- OUTSIDE RECORDS SUMMARY | 2023-01-27 06:20 | XMS_ITS | Continuity of Care Document ---
Author Name Unknown Organization [facility] ter Address [address] [place] [address]- Care Team Providers Care Nuclear Medicine Tech Name Role Phone Marlene Rowan MD Primary Care Physician Encounter [facility] [place] Date(s): 12/20/22 - 12/20/[address] [id number] Discharge Disposition: A-D/C Home Attending Physician: Fer Khan MD Admitting Physician: Fer Khan MD Referring Physician: Fer Khan MD Allergies, Adverse Reactions, Alerts Substance Reaction Severity Status penicillin 1 rash Active morphine severe headaches Active 1itchy reaction Immunizations Given and Recorded Vaccine Date Status Refusal Reason [id number] 12y+ bivalent booster vax 01/17/22 Given zoster [...] 05/04/17 Given tetanus/diphtheria/pertussis, acel(Tdap) 06/26/07 Recorded Medications lamotrigine 100 mg oral tablet 200 mg, 2, tablet, By Mouth, Daily, Refills 0, Maintenance, 02/01/18 13:56:12 EDT Start Date: 02/01/18 Status: Ordered levothyroxine 0.088 mg oral tablet 1 tablet = 88 mcg, By Mouth, Daily, New dose please start taking and stop taking old prescription Take on an empty stomach as a single daily dose before breakfast, # 30 tablet, 1 Refills, Maintenance, 09/08/22 13:13:00 EDT, Tablet, LIZETH ZAMORANO. Start Date: 09/08/22 Status: Ordered losartan 25 mg oral tablet 25 mg, 1, tablet, By Mouth, Daily, # 30 tablet, Refills 5, Tot. Refills 5, Maintenance, 06/06/22 8:50:00 EST, Route to Pharmacy Electronically, [facility] #[id number], Partial fill upon patient request if the prescription is for a schedule II opi... Start Date: 06/06/22 Status: Ordered Wellbutrin = 300 mg, By Mouth, Daily, 0 Refills, Maintenance, 05/26/14 15:11:48 EST Start Date: 05/26/14 Status: Ordered zolpidem 5 [...] s/p thyroidectomy Confirmed Active 1grandfaterh,a ge 58 Vital Signs Most recent to oldest [Reference Range]: 1 2 3 Height 173 cm (12/20/22 10:47 AM) 173 cm (12/19/22 10:56 AM) Weight 84.8 kg (12/20/22 10:47 AM) 85.5 kg (12/19/22 10:56 AM) Oxygen Saturation [94-100 %] 96 % (12/20/22 1:45 PM) 95 % (12/20/22 1:30 PM) 98 % (12/20/22 1:15 PM) Pulse Rate [55-90 bpm] 67 bpm (12/20/22 10:47 AM) Body Mass Index [18.5-24.99 kg/m2] 28.33 kg/m2 *H* (12/20/22 10:47 AM) 28.57 kg/m2 *H* (12/19/22 10:56 AM) Blood Pressure [90-138/55-84 mm Hg] 123/87mm Hg (12/20/22 1:45 PM) 117/88mm Hg (12/20/22 1:30 PM) 112/76mm Hg (12/20/22 1:15 PM) Respiratory Rate [16-30 br/min] 14 br/min *L* (12/20/22 1:45 PM) 14 br/min *L* (12/20/22 1:30 PM) 13 br/min *L* (12/20/22 1:15 PM) Temperature [96.8-100.4 DegF] 97.0 DegF (12/20/22 12:30 PM) 97.1 DegF (12/20/22 10:47 AM) Liters per Minute 2 L/min (12/20/22 1:00 PM) 6 L/min (12/20/22 12:30 PM) Mode of Delivery (Oxygen) Room air (12/20/22 1:45 PM) Room air (12/20/22 1:30 PM) Room air (12/20/22 1:15 PM) Blood pressure sites Arm, right (12/20/22 12:30 PM) Arm, left (12/20/22 10:47 AM) Temperature Route Temporal (12/20/22 12:30 PM) Temporal (12/20/22 10:47 AM) Dry Weight 84.8 kg (12/20/22 10:47 AM) 85.5 kg (12/19/22 10:56 AM) Weight Obtained Via Standing scale (12/20/22 10:47 AM) Patient/family stated (12/19/22 10:56 AM) Dry Weight Obtained Via Standing scale (12/20/22 10:47 AM) Patient/family stated (12/19/22 10:56 AM) Social History Social History Type Response Smoking Status Never (less than 100 in lifetime) entered on: 05/12/22 Sex Note * Chetna Price RN: PERFORM Event Display: Discharge/Transfer Note Hospital Authored Date: [id number] Nursing Discharge Note Entered On: 12/20/2022 14:05 EDT Performed On: 12/20/2022 14:04 EDT by Chetna Price RN Nursing Discharge Note 2 Discharge Time : 12/20/2022 14:04 EDT Discharge Level of Care at Discharge : Home/Shelter/Foster Care Patient Left Unit Via : Wheelchair Patient Accompanied Off Unit with : Responsible adult DC Instructions Provided & Signed by Pt : Yes Patient Understands D/C Instructions : Yes Patient Instructions Discharge Signed : Yes Discharge Comments : patient hemodynamically stable on transport off unit Did Pt have Specialty Bed or Wound Vac : No Chetna Price RN - 12/20/2022 14:04 EDT * Chetna Price RN: PERFORM Event Display: Patient Education/Instruction Authored Date: [id number] Surgery Adult Discharge Instructions [place] [id number] Name: JEREMY ACEVEDO : 1970?? Visit: 12/20/2022 09:08?? Current Date: 12/20/2022 13:40 ?? Account: [id number]?? Surgery Discharge Instructions We would like to thank you for allowing us to assist you with your healthcare needs. The following includes patient education materials and information regarding your injury/illness. Our entire staffstrives to provide an excellent experience for our patients and their families. PLEASE ENSURE YOU FOLLOW-UP PER THE INSTRUCTIONS BELOW! ?? YOUR OPINION IS IMPORTANT TO US! Please complete the survey you may receive by mail or email. Your feedback will be used to make improvements to the healthcare experiences of our patients and their families. Surveys are administered by [employer] ?? If further treatment with your primary care physician or another doctor is recommended, it is important for you to keep the appointment. Call your primary care physician or return to the Emergency Department immediately if your condition worsens, fails to improve, or new symptoms develop. If you need to find a doctor, you can call [facility] [employer] for a referral at [phone] or toll free at [phone] or log in to [email or web address].. ?? [facility], in keeping with [facility] guidance, no longer requires face masks for staff, patientsor visitors in most situations. Similiar to time spent indoors at other locations, there is the chance that you were exposed to repiratory viruses during your time with us (such as flu or COVID-19). If you develop symptoms concerning for a viral respiratory infection, please seek testing (and treatment if indicated) from your medical provider or home test kit. ?? You can view and manage your care through the patient portal or by using a health care jennifer of your choosing. [employer] is a website that allows you to securely view your medical information including your hospital discharge summary, office visit summaries, medications and follow-up visits. You can also request appointments, renew medications, and request access to your medical information using a health care jennifer of your choosing, or just ask a question. You are entitled to know the individuals who participated in your treatment. This information is available within your medical record and will be provided upon your request. You can enroll at [email or web address] or register d uring your next office visit. You have been discharged from [facility], Patient Care Unit: [facility]??. If you have any questions regarding these instructions after you leave, please call us and we will be happy to assist you. [facility] Your Care Team Attending Physician Fer Khan MD?? Discharging Providers Fer Khan MD Reason for Admission NEOPLASM OF PHARYNXDS CS Primary Care Provider Marlene Rowan MD? Advance Directive Health Care Proxy on File No What to do next Instructions From Your Doctor ?? Orders? 12/20/22 12:27:00 EDT?? Scheduled Follow-Up Appointments Monday 9:00 AM EDT ?? With: Marlene Rowan MD Where: [place] [address]- Status: Pending You Need to Schedule the Following Appointments Follow Up with??Fer Khan Why: for follow up & any questions/concerns Where: [address], [address] [facility], [place] [address]- [facility] (1) Follow Up with??Marlene Rowan When:??In 0 days Discharge Medications JEREMY ACEVEDO :1970 Visit Date:12/20/2022 Medications: Please continue your medications until treatment is completed or stopped by your provider. You may resume your daily prescription medications. Discuss any questions related to medications with your provider. What How Much When Instructions Next Dose Unchanged BuPROpion (Wellbutrin) 300 Milligram Oral Daily Unchanged Lamotrigine (lamotrigine 100 mg oral tablet) 2 tab(s) Oral Daily Unchanged Levothyroxine (levothyroxine 0.088 mg oral tablet) 1 tab(s) Oral Daily New dose please start taking and stop taking old prescription ?? Take on an empty stomach ?? as a single daily dose before breakfast ?? Unchanged Losartan (losartan 25 mg oral tablet) 1 tab(s) Oral Daily Unchanged Zolpidem (zolpidem 5 mg oral tablet) 2 tab(s) Oral Daily at Bedtime as needed for for sleep Allergies (NKA means No Known Allergies) morphine??(severe headaches) penicillin??(rash) Education Materials Below is the list of Educational Leaflet Providered with your Discharge Instructions. Surgery Medical Daystay Surgical Overnight Discharge Instructions?? Valuables and Belongings I fully understand and agree that [facility] accepts no responsibility for all my personal property including clothing, toilet articles, radios, jewelry, dentures, hearing aids, rings, money, or any other property that is in my possession or is brought to me after admission. I understand certain valuables may be placed in a hospital safe for a short period of time. I understand that the hospital is not liable for loss or damage due to accident, fire, or other natural occurrence while said property is in the safe. I accept full responsibility for any personal property that I keep with me, and will not hold the hospital responsible in case of loss or disappearance. I acknowledge that i have been encouraged to send valuables and belongings home. ?? Review of Valuable and Belonging List: With patient Disposition of Belongings: Sent home with patient/family Date for Pt to Sign Valuables/Belongings: 12/20/22 10:51:00 ?? Valuables & Belongings ?? Clothes Electronic devices Jewelry Monetary Items Personal devices Miscellaneous Medications (Valuables) Valuables at Bedside ? Dentures, partial plate ? Valuables Sent Home ? Valuables Sent to Security ? Other Discharge Information ? Pulmonary Rehab Status?? Pulmonary Rehab Discharge Status?? Respiratory Rate:??14 br/min??Low ? Common Emergency Awareness Tips IS IT A STROKE? Act FAST and Check for these signs: FACE Does the face look uneven? ARM Does one arm drift down? SPEECH Does their speech sound strange? TIME Call at any sign of stroke ?? Heart Attack Signs Chest discomfort: Most heart attacks involve discomfort in the center of the chest and lasts more than a few minutes, or goes away and comes back. It can feel like uncomfortable pressure, squeezing, fullness or pain. Discomfort in upper body: Symptoms can include pain or discomfort in one or both arms, back, neck, jaw or stomach. Shortness of breath: With or without discomfort. Other signs: Breaking out in a cold sweat, nausea, or lightheaded. Remember, MINUTES DO MATTER. If you experience any of these heart attack warning signs, call to get immediate medical attention! ?? Smoking can increase your chances of developing chronic health problems and can cause harmful effects to other family members in your house. If you smoke, you are strongly encouraged to quit. Please call [facility] [employer] at [phone] or [phone]) or log in to [email or web address] for referrals to smoking cessation programs. ?? The National Suicide Prevention Hotline is available 24/10 if you or someone you know needs to find a reason to keep living. By calling 3-263-164-[employer]Soft (3351) you'll be connected to a skilled, trained counselor at a crisis center in your area. SURGERY DISCHARGE INSTRUCTIONS SIGNATURE PAGE JEREMY ACEVEDO Location:[facility] Registration Date and Time:12/20/2022 09:08 EDT Primary Care Physician: Marlene Rowan MD, Attending Physician: Erin SOL, Fer Patel, I JEREMY ACEVEDO, have received the above patient education materials/instructions and have verbalized understanding. If ambulance or transport services are being used I further acknowledge being given a choice of service. ?? If you need to contact me, please call me at this number: . Patient/Damage Adjuster Name: Patient/Damage Adjuster Signature: Relationship to Patient: Witness Name/Signature: Date: * Chetna Price RN: PERFORM, SIGN, VERIFY Event Display: Patient Education Handout Authored Date: [id number] * Chetna Price RN: PERFORM Event Display: Patient Education Leaflets Authored Date: [id number] Surgery Medical Daystay Surgical Overnight Discharge Instructions ?? 295 Medical Daystay/Surgical Overnight Discharge Instructions ? Since your coordination and judgment may be altered by medication and/or anesthesia, a responsible adult must drive you home from the hospital. ? If you have received medication for pain or sedation while under our care, you should not drive, operate machinery, drink alcohol, or sign any legal documents for 24 hours.?? You should have someone with you at home tonight. ? Remain at home the day of discharge.?? You may be up and about unless otherwise instructed by your physician. ? You may resume your daily prescription medication schedule.?? Any depressant medication should be avoided for 24 hours unless otherwise instructed by your surgeon or anesthesiologist. ? Call your physician for a follow-up appointment.? If you experience unusual or severe pain not relied by your pain medication, excessive bleedingor drainage, persistent nausea and vomiting, excessive swelling or redness, foul odor from incisionsite or fever over 100.6F, you need to call your physician. ? A follow-up phone call by a nurse will be made the day after your procedure.?? If you have stayed with us over night, you will not be receiving a follow-up phone call. ? Nausea and vomiting are a common side effect of prescription pain medication.?? We recommend that pills are not taken on an empty stomach.?? While taking any prescription pain medication you should not drive or drink alcohol. ? Patient Care team information Care Team Personnel Name: Anum SOL, Marlene Somers Position: [facility] Physician - Primary Care Member Role: PCP Address: Address: [address] [place] [address]- Care Team Related Persons Name: JUAN CARO Address: home [address] [place] [address] Name: CORONA ACEVEDO Address: home [address] [place] [address]
--- OUTSIDE RECORDS SUMMARY | 2023-01-27 06:21 | XMS_ITS | Continuity of Care Document ---
Author Name Unknown Organization [facility] Address [address] [place] [address]- Care Team Providers Care Router Tender Name Role Phone Marlene Rowan MD Primary Care Physician [place] [facility] [place]): 11/04/22 - 12/10/22 [facility] [address] [place] [address]- Attending Physician: Nadira Ugarte MD Admitting Physician: Naidra Ugarte MD Allergies, Adverse Reactions, Alerts Substance Reaction Severity Status penicillin 1 Active morphine severe headaches Active 1itchy reaction Immunizations Given and Recorded Vaccine Date Status Refusal Reason [id number] 12y+ bivalent booster vax 01/17/22 Given zoster [...] Gm, 1 Refills, Maintenance, 02/18/22 18:02:00 EST, [facility] #[id number], Partial fill upon patient request if the [...] tablet, 1 Refills, Maintenance, 01/17/22 11:44:00 EDT, [facility] #[id number], Partial fill upon patient request if the prescription is for a schedule II opioid drug., 173, cm, 01/17/22 10:44:00 EDT, Height Start Date: 01/17/22 Status: Ordered estradiol 0.1 mg/g vaginal cream = 1 Gm, Vaginally, Daily at bedtime, # 30 Gm, 1 Refills, Maintenance, 05/30/22 13:40:00 EST, [facility], Partial fill upon patient request if the prescription is for a schedule IIopioid drug., 173, cm, 05/30/22 13:16:00 EST, [place]... Start Date: 05/30/22 Status: Ordered Flonase 50 mcg/inh nasal spray 1 sprays, Nares, Both, Daily in AM, # 16 Gm, 1 Refills, Maintenance, 01/17/22 11:44:00 EDT, [place], [facility] #[id number], Partial fill upon patient request if the [...] 1 Refills, Maintenance, 09/08/22 13:13:00 EDT, Tablet, [facility] ZAMOR[facility]. Start Date: 09/08/22 Status: Ordered levothyroxine 0.1 mg oral tablet 1 tablet, By Mouth, Daily, # 30 tablet, 0 Refills, Maintenance, 01/14/22 10:22:00 EDT, [facility] #[id number], 173, cm, 10/21/21 13:31:00 EDT, Height Start Date: 01/14/22 Status: Ordered losartan 25 mg oral tablet 25 mg, 1, tablet, By Mouth, Daily, # 30 tablet, Refills 5, Tot. Refills 5, Maintenance, 06/06/22 8:50:00 EST, Route to Pharmacy Electronically, [facility] #[id number], Partial fill upon patient request if the [...] 05/30/22 13:43:00 EST, Route to Pharmacy Electronically, [facility], Partial fill upon patient request if the prescription is for a schedul... Start Date: 05/30/22 Status: Ordered Voltaren 1% topical gel 1 application, Topically, 4 times a day, PRN for pain, # 100 Gm, 3 Refills, Maintenance, 05/12/22 9:16:00 EST, Gel, [facility] #[id number], Partial fill upon patient request if the [...] Personnel Name: Anum SOL, Marlene Somers Position: [facility] Physician - Primary Care Member Role: PCP Address: Address: [address] [place] [id number]- Care Team Related Persons Name: JUAN CARO Address: home [address] [place] [address] Name: CORONA ACEVEDO Address: home [address] [place] [address]
[2023-01-27 06:46] VITALS: BP 112/72; PULSE 67; RESP 16; TEMP 36.1; O2SAT 98; BMI 28.4
[2023-01-27] MEDS: Lactated Ringers 1,000 ML 100 ML IVCONT (07:15)
--- NOTE | 2023-01-27 07:43 | P.HPSUR_ITS ---
Pre-Procedural Eval Section A Date of Service: 01/27/23 Section B Chief Complaint: Diverticulitis of intestine, part unspecified Details of Present Illness: Had diverticulitis in November, colonoscopy was more than 10 years ago Relevant Family History (Specify if Yes): No Relevant Social History: None Present Medications: see Short Stay Collaborative assessment Medical History: Significant History (Thyroid disease, depression, bipolar illness) Allergies: Allergies Allergy/AdvReac Type Severity Reaction Status Date / Time Penicillins Allergy Rash Verified 01/27/23 06:50 morphine AdvReac Headache Verified 01/27/23 06:50 Review of Systems Sugical H&P ROS: Negative: Constitution, Cardiovascular, Respiratory, Neurological, Psychiatric, Hem-Onc, Allergic/Immunologic, Gastrointestinal, Genitourinary, Musculoskeletal, Integumentary, Endocrine and Eyes/Ear s/Nose/Throat Exam Surgical H&P Exam: Normal: HEENT, Normal: Heart, Normal: Lungs, Normal: Extremities, Normal: Abdomen, Normal: Skin and Normal: Neurological Plan Diagnosis/Plan: Unchanged I have reviewed the history and physical and performed a pertinent physical examination on my patient. No changes have occurred unless specified. Time Spent With Patient Time: Total time managing care of this patient today ____ minutes.
--- NOTE | 2023-01-27 07:43 | PC.NURSE ---
Question of prolonged QT interval. Dr. Ward made aware. EKG obtained for baseline. Okay to proceed into surgery.
--- NOTE | 2023-01-27 08:11 | W.PM.OPN ---
Operative Note Operative Note Date of Service: 01/27/23 Narrative: Preop diagnosis: History of diverticulitis colon cancer screen Postop diagnosis:1. Diverticulosis, sigmoid and left colon, with patchy areas of erythema at level 20-30 cm 2. Prominent internal and external hemorrhoids Procedure: Colonoscopy Surgeon: Dylan Orourke MD The patient is a 52-year-old female was a history of diverticulitis about months ago. I her last colonoscopy was more than 10 years ago and I advised her to undergo repeat colonoscopy. She understood the technique of the procedure as well as the risks, benefits, and alternatives The patient was brought to the operating room and placed in left lateral decubitus position under monitored anesthesia care. A surgical time-out was done. A full digital rectal exam was done and this did not reveal any significant anal lesions. The tip of the Olympus colonoscope was gently introduced through the anal orifice advanced with insufflation all the way to the cecum. The cecum was intubated. The cecum was identified by visualization of the ileocecal valve as well as the appendiceal orifice. The cecal mucosa was unremarkable. The scope was gradually withdrawn with careful examination of the entire colonic mucosa being done with scope withdrawal. The patient had adequate bowel prep so it was unlikely that any lesion may have been missed. There was note of scattered diverticuli in the sigmoid and the distal left colon. There was note of patchy areas of erythema from level 20 cm of 30 cm. The rectum was reached and there were no lesions seen. The anal canal was unremarkable except for prominent internal external hemorrhoids.. The scope was then withdrawn completely with desufflation The patient tolerated procedure well. There were no immediate complications. Her next colonoscopy for screening may be in the next 10 years.
[2023-01-27 08:15] VITALS: BP 104/59; PULSE 78; RESP 16; TEMP 36.1; O2SAT 98
[2023-01-27 08:30] VITALS: BP 103/64; PULSE 70; RESP 18; TEMP 36.2; O2SAT 99
== END 2023-01-27 09:05 | disposition home or self-care (01) ==
PROVIDERS: PCP Internal Medicine; Visit Provider Surgery
PROC: 0DJD8ZZ Inspection of Lower Intestinal Tract, Via Natural or Artificial Opening Endoscopic (ICD-10-PCS; CPT 45378; principal; 2023-01-27 07:30)
DX: Z12.11 Encounter for screening for malignant neoplasm of colon (principal); Z87.19 Personal history of other diseases of the digestive system; K57.30 Diverticulosis of large intestine without perforation or abscess without bleeding; K64.8 Other hemorrhoids; K64.4 Residual hemorrhoidal skin tags; I10 Essential (primary) hypertension; E07.9 Disorder of thyroid, unspecified; F31.9 Bipolar disorder, unspecified; F41.1 Generalized anxiety disorder; Z79.1 Long term (current) use of non-steroidal anti-inflammatories (NSAID); Z79.899 Other long term (current) drug therapy; Z88.0 Allergy status to penicillin; Z88.5 Allergy status to narcotic agent
CPT/HCPCS: 45378; 93005; J2250

== ENCOUNTER → 2023-01-27 06:18 | Outpatient (BNV) | payer OTHER, SELFPAY | PROVIDERS: PCP Internal Medicine; Visit Provider Surgery | DX: Z12.11 Encounter for screening for malignant neoplasm of colon (principal); K57.90 Diverticulosis of intestine, part unspecified, without perforation or abscess without bleeding; K64.8 Other hemorrhoids | CPT/HCPCS: 45378 ==

== ENCOUNTER 2023-02-09 08:53 | Outpatient (AMB) | payer OTHER, SELFPAY ==
[2023-02-09 09:02] VITALS: BP 135/87; PULSE 65; BMI 28.4
--- NOTE | 2023-02-09 09:02 | MHC.OFFVIS ---
Intake Vital Signs 02/09/23 09:02 Height 5 ft 8 in Weight 187 lb BMI 28.4 BP 135/87 Blood Pressure Location Rt brachial Position Sitting Pulse 65 Intake Visit Reasons: S/p colonoscopy Intake Note: This patient presents for a follow-up assessment status post colonoscopy. Patient c/o; reports no complaints at this time. High Pressure Cleaner Required: Yes High Pressure Cleaner Language: Slot Floor Supervisor Name: Mal Information Interpreted: non-clinical & clinical Accompanied by: Other Relationship Allergies Penicillins Allergy (Verified 02/09/23 09:08) Rash morphine Adverse Reaction (Verified 02/09/23 09:08) Headache HPI S/p colonoscopy HPI Details She underwent colonoscopy last January 27 for colon cancer screening and for her history diverticulitis . She tolerated the procedure well. She currently denies significant complaints. [facility] Medical History (Updated 02/09/23 @ 09:15 by Dylan Orourke MD) Diverticular disease Hypertension Thyroid disease Depression Bipolar illness Anxiety Surgical History Hx of colonoscopy (~01/27/23) S/P LASIK surgery of both eyes Tubal ligation status H/O colonoscopy Hx of tonsillectomy H/O thyroidectomy Social History Household Members: Spouse Do you presently have visiting nurse or other home services: No Alcohol intake: never Patient Tobacco Use Status: Never used Tobacco service: No Review of Systems Const Denies chills and Denies fever(s) Card Denies chest pain, Denies dyspnea and Denies dyspnea on exertion Resp Denies cough, Denies dyspnea and Denies dyspnea on exertion GI Denies hematochezia and Denies change in bowel habits Denies hematuria Musc Denies back pain and Denies limited range of motion Neuro Denies focal weakness and Denies convulsions Psych Denies depression and Denies mood swings Physical Exam Vital Signs: Last Vital Signs Pulse 65 02/09/23 09:02 BP 135/87 02/09/23 09:02 BMI result Body Mass Index 28.4 Const Other: looks well General: comfortable and no acute distress Resp Effort & Inspection: normal respiratory effort Cardio Rate: regular rate GI Palpation (GI): Soft to palpation, not firm, nontender and no guarding Assessment & Plan Assessment & Plan (1) Diverticular disease: Code(s): K57.90 - Diverticulosis of intestine, part unspecified, without perforation or abscess without bleeding Plan: Status post colonoscopy. I did not find any polyps or any lesions. She did have sigmoid diverticulosis with a little bit of residual patchy erythema of the mucosa. She understands the risks of recurrent diverticulitis including the risk of perforation although unlikely. I advised her on high fiber diet as well as the benefits weight loss. She can otherwise follow up on a p.r.n. basis Her next colonoscopy may be in the next 10 years. Coding Level of Care Code Est Pt Level 2 (37391) Diagnoses Diverticular disease K57.90
== END 2023-02-09 09:14 | disposition home or self-care (01) ==
PROVIDERS: PCP Family Medicine; Visit Provider Surgery
DX: K57.90 Diverticulosis of intestine, part unspecified, without perforation or abscess without bleeding (principal)
CPT/HCPCS: 99212

== ENCOUNTER → 2023-02-09 08:53 | Outpatient (BNVA) | payer OTHER, SELFPAY | PROVIDERS: PCP Family Medicine; Visit Provider Surgery | DX: K57.90 Diverticulosis of intestine, part unspecified, without perforation or abscess without bleeding (principal) | CPT/HCPCS: 99212 ==

== ENCOUNTER 2023-07-01 07:58 | Emergency (ER) | payer OTHER, SELFPAY ==
--- NOTE | ~2023-07-01 | CT_ITS ---
EXAMINATION: CT abdomen pelvis w IV con CLINICAL INFORMATION: Reason for Exam LLQ pain, vomiting, hx of diverticulitis COMPARISON: No prior CT available for comparison. TECHNIQUE: Multidetector volumetric imaging was performed from the superior aspect of the liver through the pubic symphysis 85 mL Omnipaque 350 Sagittal and coronal reformatted images were obtained on the technologist's workstation. This CT examination was performed using dose optimization techniques as appropriate, variously including the following: *Automated exposure control *Adjustment of mA and/or kV according to patient size (this includes techniques or standardized protocols for targeted exams where dose is matched to indication/reason for exam; i.e. extremities or head) *Use of iterative reconstruction technique DLP: 725 mGy-cm FINDINGS: LOWER THORAX: Included lung bases are clear. HEPATOBILIARY: No focal hepatic lesions. No biliary ductal dilatation. GALLBLADDER: Gallbladder unremarkable. SPLEEN: Spleen is normal in size. PANCREAS: No focal mass or ductal dilatation. STOMACH AND GASTROINTESTINAL TRACT: Stomach is grossly unremarkable. There is no bowel distention or thickening. No CT evidence of appendicitis. ADRENALS: No adrenal nodules. KIDNEYS/URETERS: No hydronephrosis, stones or solid mass lesions. URINARY BLADDER: Partially decompressed. PELVIC VISCERA: Unremarkable PERITONEUM: No free air or fluid. LYMPH NODES: No lymphadenopathy. VASCULAR:Abdominal aorta normal in size, no aneurysm found. BONES, ABDOMINAL WALL AND SOFT TISSUES: Sclerotic density in the sacrum left of midline probably bone island. CT/CT abdomen pelvis w IV con IMPRESSION: 1. No CT evidence of acute intra-abdominal process to explain patient's pain symptoms. 2. No evidence of diverticulitis. 3. Sclerotic density in the sacrum left of midline probably bone island.
[2023-07-01 08:17] VITALS: BP 169/85; PULSE 73; RESP 17; TEMP 35.9; O2SAT 99; BMI 28.6
--- NOTE | 2023-07-01 08:31 | ED.ABDPAIN ---
HPI - Abdominal Pain General Chief Complaint: Nausea/Vomiting/Diarrhea Stated Complaint: abd pain vomiting Time Seen by Provider: 07/01/23 08:18 Source: patient and family Mode of arrival: ambulatory Limitations: no limitations History of Present Illness HPI narrative: Carito is a 52 year old female with past medical history of diverticular disease with hospitalization for diverticulitis 11/23. She presents today for evaluation of LLQ pain for 1 day. She reports that the pain began yesterday and started epigastrically and radiated to LLQ. Says that it is very familiar to the pain felt during flare last year. Reports that the pain is stabbing in nature and intermittent. Episode of constipation yesterday with 1 hard bowel movement. Today, pain worsened and she developed nausea and vomiting. Did not have food today, states that the vomit was mucus-like. Denies fevers. No changes in appetite. No chest pain. Reports she felt short of breath earlier this morning. MD elicited complaint: abdominal pain Pertinent past history: diverticulitis Onset (ago): day(s) Pain Consistency: intermittent Location: epigastric and LLQ Severity: severe Pain scale (0-10): 7 Quality: stabbing Radiation: LLQ Migration to: LLQ Exacerbating factors: movement Relieving factors: nothing Associated symptoms: nausea and constipation Related Data Patient : No (perimenopausal, no menses for 1 year, returned last month) Home Medications Medication Instructions Recorded Confirmed ascorbic acid (vitamin C) 500 mg 500 mg PO DAILY 11/07/22 01/27/23 tablet (Vitamin C) ibuprofen 200 mg tablet 200 mg PO Q6H PRN Pain 11/07/22 01/27/23 levothyroxine 88 mcg tablet 88 mcg PO DAILY 11/07/22 01/27/23 losartan 25 mg tablet 25 mg PO DAILY 11/07/22 01/27/23 omega 2-bmv-ado-fish oil 1,000 mg 1 cap PO DAILY 11/07/22 01/27/23 (120 mg-180 mg) capsule (Fish Oil) propylene glycol 1 %-glycerin 0.3 1 drp ophthalmic (eye) DAILY PRN 11/07/22 01/27/23 % eye drops (Artificial Tears Dry Eyes (glycerin-peg)) zolpidem 10 mg tablet 10 mg PO BEDTIME 11/07/22 01/27/23 Previous Rx's Medication Instructions Recorded docusate sodium 100 mg capsule 100 mg PO BID #60 caps 11/30/22 (Colace) ondansetron 4 mg disintegrating 4 mg PO Q8H PRN nausea and 07/01/23 tablet vomiting #6 tabs polyethylene glycol 3350 17 17 g PO DAILY #119 grams 07/01/23 gram/dose oral powder (Miralax) Allergies Allergy/AdvReac Type Severity Reaction Status Date / Time Penicillins Allergy Rash Verified 02/09/23 09:08 morphine AdvReac Headache Verified 02/09/23 09:08 Review of Systems Review of Systems Yes all other systems are reviewed and are negative [facility] Past Medical History Medical History (Updated 07/01/23 @ 11:06 by SUSAN Jurado) Diverticular disease Hypertension Thyroid disease Depression Bipolar illness Anxiety Surgical History Hx of colonoscopy (~01/27/23) S/P LASIK surgery of both eyes Tubal ligation status H/O colonoscopy Hx of tonsillectomy H/O thyroidectomy Social History Social History Household Members: Spouse Do you presently have visiting nurse or other home services: No Alcohol intake: never Patient Tobacco Use Status: Never used Tobacco Smoked in Last 30 Days: No Use of substances other than those prescribed or required for medical reasons: No Advance Directives: No Advance Directives Information Provided: No Patient : No (perimenopausal, no menses for 1 year, returned last month) service: No Physical Exam ED Vital Signs: Vital Signs - 24 hr 07/01/23 08:17 07/01/23 10:16 Temperature 96.7 F L Pulse Rate 73 59 Respiratory Rate 17 18 Blood Pressure 169/85 H 115/69 Pulse Oximetry 99 98 Oxygen Delivery Method Room Air Room Air BMI result Body Mass Index 28.6 Appearance: Alert. Oriented X3. Appears uncomfortable, hunched and slow moving Neck: Normal inspection. Neck supple. CVS: Normal heart rate and rhythm. Pulses normal. Respiratory: No respiratory distress. Breath sounds normal. Abdomen: Nondistended, guarding to palpation in lower quadrant. Tender to palpation in epigastric and LLQ region. Skin: Skin warm and dry. Normal skin color. Normal skin turgor. No rashes. Extremities: No lower extremity edema. No joint swelling. Neuro/psych: Oriented X 3. No motor deficit. Normal speech and cognition. Course Reevaluation(s) Reevaluation #1: Patient feeling better after administration of IV fluids, antiemetics, and pain medication. Pain improved from a 7 to a 5 . Now only reports LLQ pain. Time: 09:30 Medical Decision Making Medical Decision Making MDM Narrative: Carito is a 52 year old female with history of diverticular disease, depression, anxiety, thyroidectomy who presents today for evaluation of LLQ pain for 1 day. She was hospitalized in 11/2022 for acute diverticulitis of the sigmoid colon. She reports that the pain is very similar to that episode. Pain onset was yesterday with intermittent epigastric pain that radiates to the LLQ. Pain persisted today and now has nausea and vomiting. No fevers. On physical exam, she appears uncomfortable and in pain. She reports the pain to be 7/10 but is intermittent. She has tenderness and guarding with palpation of the LLQ and lower mid abdomen. In the ED, patient received IV fluids, antiemetic medication, and IV toradol. She reports that the pain is improved, now 5 previously was 7. No vomiting here. Labs unremarkable. UA negative. CT scan reviewed - no evidence of diverticulitis. Clinical presentation most likely due to constipation. she is tolerating PO diet here in the ER. Given bowel regimen. stable for d/c home with ongoing bowel reg, diet modifications and outpatient follow up. return precautions discussed. stable for d/c home Differential Diagnosis Differential Diagnoses: The differential diagnosis associated with the presentation includes acute diverticulitis, constipation, SBO, viral gastroenteritis, peptic ulcer disease, pancreatitis, cholecystitis, cholelithiasis, cholangitis, JARON, bowel ischemia Admission/Observation Consideration of admission/observation: Escalation of care including admission/observation considered Lab [facility] Lab Attestation statement: I reviewed the patient's lab results. 07/01/23 08:52 07/01/23 08:52 Labs: Lab Results 07/01/23 Range/Units 08:52 WBC 6.8 (4.8-10.8) X10*3/uL RBC 5.12 (4.20-5.50) X10*6/uL Hgb 14.1 (12.0-16.0) g/dl Hct 44.0 (37.0-47.0) % MCV 85.9 (80.0-98.0) fL MCH 27.5 (27.0-33.0) pg MCHC 32.0 (31.0-35.0) g/dl RDW 13.8 (11.0-16.0) % Plt Count 390 (160-400) X10*3/uL MPV 9.3 L (9.4-12.3) fL Immature Gran % (Auto) 0.3 (0.0-0.4) % Neut % (Auto) 58.2 (45-73) % Lymph % (Auto) 29.7 (20-40) % [place] % (Auto) 9.1 (2-11) % Eos % (Auto) 2.0 (0-4) % Baso % (Auto) 0.7 (0-2) % Lymph # (Auto) 2.0 (1.2-4.9) X10*3/uL [place] # (Auto) 0.6 (0.1-1.2) X10*3/uL Eos # (Auto) 0.1 (0.0-0.4) X10*3/uL Baso # (Auto) 0.1 (0.0-0.2) X10*3/uL Abs Immat Gran (auto) 0.02 (0.00-0.03) X10*3/uL Absolute Neuts (auto) 4.0 (2.0-8.3) x10*3/uL Absolute Nucleated RBC 0.000 (0.0-0.012) X10*3/uL Nucleated RBC % (auto) 0.0 (0.0-0.2) /100WBC Sodium 142 (135-145) mmol/L Potassium 4.5 (3.3-5.1) mmol/L Chloride 109 H (96-108) mmol/L Carbon Dioxide 25 (22-29) mmol/L Anion Gap 13 (12-20) BUN 17 H (9-16) mg/dL Creatinine 0.73 (0.5-1.4) mg/dL Estim Creat Clear Calc 100.8 Estimated GFR > 60 Random Glucose 97 (60-115) mg/dL Calcium 9.9 (8.4-10.2) mg/dL Magnesium 2.1 (1.6-2.6) mg/dL Total Bilirubin 0.4 (0.0-1.0) mg/dL Direct Bilirubin 0.1 (0.0-0.5) mg/dL AST 22 (5-31) U/L ALT 23 (0-31) U/L Alkaline Phosphatase 113 (39-117) U/L Total Protein 7.5 (6.5-8.0) g/dL Albumin 4.2 (3.5-5.0) g/dL Lipase 15 (8-78) U/L Urine Color Yellow Urine Appearance Cloudy Urine pH 6.0 (5.0-9.0) Ur Specific [place] 1.020 (1.005-1.025) Urine Protein Negative (Neg-Trace) mg/dL Urine Glucose (UA) Negative (Negative) mg/dL Urine Ketones Negative (Negative) mg/dL Urine Blood Trace H (Negative) Urine Nitrite Negative (Negative) Ur Leukocyte Esterase Trace H (Negative) Urine RBC 0-2 (0-2) /HPF Urine WBC 0-5 (0-5) /HPF Ur Squamous Epith Cells 11-20 (0-2) /HPF Urine Bacteria Trace (None Seen) Hyaline Casts 0-2 (0-2) /LPF Independent Interpretation I performed an independent interpretation of an: CT Scan Interpretation: no pericolonic stranding or masses, no free air. agree w/ radiology read Radiology Impression Discussion of test interpretation with radiology: I have reviewed the radiologist's reading. Radiologist Impression: EXAMINATION: CT abdomen pelvis w IV con CLINICAL INFORMATION: Reason for Exam LLQ pain, vomiting, hx of diverticulitis COMPARISON: No prior CT available for comparison. TECHNIQUE: Multidetector volumetric imaging was performed from the superior aspect of the liver through the pubic symphysis 85 mL Omnipaque 350 Sagittal and coronal reformatted images were obtained on the technologist's workstation. This CT examination was performed using dose optimization techniques as appropriate, variously including the following: *Automated exposure control *Adjustment of mA and/or kV according to patient size (this includes techniques or standardized protocols for targeted exams where dose is matched to indication/reason for exam; i.e. extremities or head) *Use of iterative reconstruction technique DLP: 725 mGy-cm FINDINGS: LOWER THORAX: Included lung bases are clear. HEPATOBILIARY: No focal hepatic lesions. No biliary ductal dilatation. GALLBLADDER: Gallbladder unremarkable. SPLEEN: Spleen is normal in size. PANCREAS: No focal mass or ductal dilatation. STOMACH AND GASTROINTESTINAL TRACT: Stomach is grossly unremarkable. There is no bowel distention or thickening. No CT evidence of appendicitis. ADRENALS: No adrenal nodules. KIDNEYS/URETERS: No hydronephrosis, stones or solid mass lesions. URINARY BLADDER: Partially decompressed. PELVIC VISCERA: Unremarkable PERITONEUM: No free air or fluid. LYMPH NODES: No lymphadenopathy. VASCULAR:Abdominal aorta normal in size, no aneurysm found. BONES, ABDOMINAL WALL AND SOFT TISSUES: Sclerotic density in the sacrum left of midline probably bone island. CT/CT abdomen pelvis w IV con IMPRESSION: 1. No CT evidence of acute intra-abdominal process to explain patient's pain symptoms. 2. No evidence of diverticulitis. 3. Sclerotic density in the sacrum left of midline probably bone island Independent Historian Clinical information obtained from an independent historian. History obtained from or confirmed by: Spouse External Record Review External record reviewed: Inpatient record, Outpatient record, Prior outpatient labs and Prior outpatient radiology Prescription Management I considered prescription management with: Pain Medication and Antibiotic Chronic Conditions Patient?s care impacted by: Other (anxiety ) Medications Administered Discontinued Medications Generic Name Dose Route Start Last Admin Trade Name Freq PRN Reason Stop Dose Admin Lactated Ringer's 1,000 mls @ 999 mls/hr 07/01/23 08:45 07/01/23 08:54 Lr IV 07/01/23 09:45 999 mls/hr .Q1H1M FLAVIA Administration Iohexol 100 ml 07/01/23 09:37 07/01/23 09:39 Iohexol 350 Mg/Ml 100 Ml Infus..Btl IV 07/01/23 09:38 85 ml ONCE ONE Administration Ketorolac Tromethamine 15 mg 07/01/23 08:52 07/01/23 09:13 Ketorolac Tromethamine 15 Mg/Ml Vial IVPUSH 07/01/23 08:53 15 mg ONCE ONE Administration Ondansetron HCl 4 mg 07/01/23 08:37 07/01/23 08:54 Ondansetron Hcl 4 Mg/2 Ml Vial IVPUSH 07/01/23 08:38 4 mg ONCE ONE Administration Critical Care Time Critical Care Time Critical Care Time: No Discharge Plan Discharge Clinical Impression: Abdominal pain Qualifiers: Abdominal location: unspecified location Qualified Code(s): R10.9 - Unspecified abdominal pain Patient Disposition: Home, Self-Care Instructions: Constipation (DC), Abdominal Pain (ED) Additional Instructions: Your CT scan today was normal - no evidence of diverticulitis For constipation please take the prescribed Miralax 1-2 times per day until you have relief. You can also repeat the suppository at home or try an enema, both can be purchased over the counter Stick to bland diet while you are not feeling well Drink plenty of fluids Follow up with your doctor next week If you develop new or worsening symptoms call 911 or come back to the ER for further evaluation. Prescriptions: New ondansetron 4 mg tablet,disintegrating 4 mg PO Q8H PRN (Reason: nausea and vomiting) Qty: 6 0RF polyethylene glycol 3350 [Miralax] 17 gram/dose powder 17 g PO DAILY Qty: 119 0RF No Action levothyroxine 88 mcg tablet 88 mcg PO DAILY ascorbic acid (vitamin C) [Vitamin C] 500 mg Tablet 500 mg PO DAILY losartan 25 mg tablet 25 mg PO DAILY ibuprofen 200 mg Tablet 200 mg PO Q6H PRN (Reason: Pain) zolpidem 10 mg tablet 10 mg PO BEDTIME omega 6-lhp-dpe-fish oil [Fish Oil] 1,000 mg (120 mg-180 mg) Capsule 1 cap PO DAILY Artificial Tears(glycerin-peg) 1-0.3 % Drops 1 drp OPHTHALMIC (EYE) DAILY PRN (Reason: Dry Eyes) docusate sodium [Colace] 100 mg capsule 100 mg PO BID Qty: 60 0RF Referrals: Marlene Rowan MD [Primary Care Provider] -
--- OUTSIDE RECORDS SUMMARY | 2023-07-01 08:39 | XMS_ITS | Continuity of Care Document ---
Author Name Unknown Organization [facility] Address [address] [id number]- Care Team Providers Care Family Living Educator Name Role Phone Marlene Rowan MD Primary Care Physician [place] [facility] [place]23 - 04/30/23 [facility] [address] [place] [address]- [place] Allergies, Adverse Reactions, Alerts Substance Reaction Severity Status penicillin 1 rash Active morphine severe headaches Active 1itchy reaction Immunizations Given and Recorded Vaccine Date Status Refusal Reason influenza virus vaccine, inactivated 12/27/22 Give n influenza virus vaccine, inactivated 03/01/21 Barry rded influenza virus vaccine, inactivated 01/02/20 Barry rded influenza virus vaccine, inactivated 01/16/19 Barry rded influenza virus vaccine, inactivated 05/04/17 Give n influenza virus vaccine, inactivated 12/01/15 Barry rded influenza virus vaccine, inactivated 01/30/14 Give n [id number] 12y+ bivalent booster vax 01/17/22 Given zoster vaccine, inactivated 12/09/21 Recorded zoster vaccine, inactivated 08/22/21 Recorded SARS-CoV-2 (COVID-19) mRNA BNT-162b2 vac 03/04/21 Recorded SARS-CoV-2 (COVID-19) mRNA BNT-162b2 vac 07/29/20 Recorded SARS-CoV-2 (COVID-19) mRNA BNT-162b2 vac 07/08/20 Recorded tetanus/diphtheria/pertussis, acel(Tdap) 05/04/17 Given tetanus/diphtheria/pertussis, acel(Tdap) 06/26/07 Recorded Medications azelastine 137 mcg/inh (0.1%) nasal spray See Instructions, 2 sprays qhs in each nostril congolese, # 1 each, 3 Refills, Maintenance, 12/27/22 10:09:00 EDT, [facility] #[id number], Partial fill upon patient request if the prescription is for a schedule II opioid drug., 2 sprays qhs ; in... Start Date: 12/27/22 Status: Ordered fluticasone 50 mcg/inh nasal spray 2 sprays, Nares, Both, Daily in AM, congolese, # 1 each, 3 Refills, Maintenance, 12/27/22 10:07:00 EDT, [place], [facility] #[id number], Partial fill upon patient request if the prescription is for a schedule II opioid drug., 2 sprays Nares, Both Юлия... Start Date: 12/27/22 Status: Ordered lamotrigine 100 mg oral tablet 200 mg, 2, tablet, By Mouth, Daily, Refills 0, Maintenance, 02/01/18 13:56:12 EDT Start Date: 02/01/18 Status: Ordered levothyroxine 0.1 mg oral tablet 1 tablet = 100 mcg, By Mouth, Daily, increased dose- congolese, # 90 tablet, 1 Refills, Maintenance, 03/31/23 11:30:00 EST, Tablet, [facility] #[id number], Partial fill upon patient request if theprescription is for a schedule II opioid drug., 173... Start Date: 03/31/23 Status: Ordered Lipitor 20 mg oral tablet 1 tablet = 20 mg, By Mouth, Daily, # 90 tablet, 1 Refills, Maintenance, 03/31/23 11:30:00 EST, Tablet, [facility] #[id number], Partial fill upon patient request if the prescription is for a schedule II opioid drug., 173, cm, 02/21/23 8:28:00 EST,... Start Date: 03/31/23 Stop Date: 09/27/23 Status: Ordered losartan 25 mg oral tablet 25 mg, 1, tablet, By Mouth, Daily, # 90 tablet, Refills 3, Tot. Refills 3, Maintenance, 02/21/23 8:47:00 EST, Route to Pharmacy Electronically, [facility] #[id number], Partial fill upon patient request if the prescription is for a schedule II opi... Start Date: 02/21/23 Status: Ordered Wellbutrin = 300 mg, By [...] Active Graves disease s/p thyroidectomy Confirmed Active Combined hyperlipidemia Confirmed Active 1grandfaterh,a ge 58 Social History Social History Type Response Smoking Status Never (less than 100 in lifetime) entered on: 05/12/22 Sex Patient Care team information Care Team Personnel Name: Anum SOL, Marlnee Somers Position: [facility] Physician - Primary Care Member Role: PCP Address: Address: [address] [place] [id number]- Care Team Related Persons Name: JUAN CARO Address: home [address] [place] [address] Name: CORONA ACEVEDO Address: home [address] [place] [address]
[2023-07-01] MEDS: Lactated Ringers 1,000 ML 999 ML IV (08:54)
[2023-07-01] MEDS: ondansetron HCL 4 MG/2 ML VIAL IVPUSH (08:54)
[2023-07-01 08:56] LABS: MANUAL DIFF FLAG NO
[2023-07-01 08:57] LABS: Basophils Absolute Auto 0.1 X10*3/uL (0.0-0.2); Basophils Percent Auto 0.7 % (0-2); Eosinophils Absolute Auto 0.1 X10*3/uL (0.0-0.4); Hemoglobin 14.1 g/dl (12.0-16.0); Imm Gran Abs Auto 0.02 X10*3/uL (0.00-0.03); Imm Gran Pct Auto 0.3 % (0.0-0.4); Lymphocytes Percent Auto 29.7 % (20-40); Mean Corpuscular Hemoglobin 27.5 pg (27.0-33.0); Mean Corpuscular Volume 85.9 fL (80.0-98.0); Mean Platelet Volume 9.3 fL (9.4-12.3); Monocytes Absolute Auto 0.6 X10*3/uL (0.1-1.2); Monocytes Percent Auto 9.1 % (2-11); Neutrophils Percent Auto 58.2 % (45-73); Platelet Count 390 X10*3/uL (160-400); Red Blood Count 5.12 X10*6/uL (4.20-5.50); Red Cell Distribution Width 13.8 % (11.0-16.0); White Blood Count 6.8 X10*3/uL (4.8-10.8)
[2023-07-01 08:58] LABS: Appearance Urine Cloudy; Color Urine Yellow; Glucose Urine UA Negative (Negative); Leukocyte Esterase Urine Trace (Negative); Nitrite Urine Negative (Negative); UMIC TRIGGER UACC YES; Urine Blood Trace (Negative); Urine Ketones Negative (Negative); Urine Protein Negative (Neg-Trace)
[2023-07-01 09:03] LABS: Bacteria Urine Trace (None Seen); Hyaline Casts Urine 0-2 /LPF (0-2); RBC Urine 0-2 /HPF (0-2); WBC Urine 0-5 /HPF (0-5)
[2023-07-01] MEDS: Ketorolac Tromethamine 15 MG/ML VIAL IVPUSH (09:13)
--- NOTE | 2023-07-01 09:14 | PC.NURSE ---
pt verbalizing pain level is a 5/10 at this time. medication administered per provider order. effectiveness pending. pt waiting to go to CT. bedside for support. plan of care ongoing. call gutierrez placed within reach.
--- NOTE | 2023-07-01 09:17 | PC.NURSE ---
pt a&ox4. vss and up to date. pt presents to ED c/o intermittent 5/10 abd pain. pt has a hx of diverticulitis - states she feels like she is having a flare up. pt states she is also having nausea/constipation x a few days. abd tender to touch. 20gIV placed in the left forearm - labs obtained/sent to lab. IVF/medication administered per provider order. no sob/wob noted. respirations even and unlabored. plan of care ongoing. call gutierrez placed within reach.
[2023-07-01 09:20] LABS: Alanine Aminotransferase 23 U/L (0-31); Albumin Level 4.2 g/dL (3.5-5.0); Alkaline Phosphatase 113 U/L (39-117); Anion Gap 13 (12-20); Aspartate Amino Transferase 22 U/L (5-31); Bilirubin Direct 0.1 mg/dL (0.0-0.5); Bilirubin Total 0.4 mg/dL (0.0-1.0); Blood Urea Nitrogen 17 mg/dL (9-16); Calcium 9.9 mg/dL (8.4-10.2); Carbon Dioxide 25 mmol/L (22-29); Chloride 109 mmol/L (96-108); Creatinine Clr Calc Pharmacy 100.8; Estimated Glomerular Filt Rate > 60; Glucose Random 97 mg/dL (60-115); Lipase 15 U/L (8-78); Magnesium 2.1 mg/dL (1.6-2.6); Potassium 4.5 mmol/L (3.3-5.1); Sodium 142 mmol/L (135-145); Total Protein 7.5 g/dL (6.5-8.0)
[2023-07-01] MEDS: iohexoL 350 MG/ML 100 ML INFUS..BTL IV (09:39)
[2023-07-01 10:16] VITALS: BP 115/69; PULSE 59; RESP 18; O2SAT 98
--- NOTE | 2023-07-01 11:18 | PC.NURSE ---
report given to all CROWE at this time.
[2023-07-01] MEDS: bisacodyL 10 MG SUPP.RECT PR (11:30)
[2023-07-01] MEDS: Milk of Magnesia 30 ML ORAL.SUSP PO (11:30)
[2023-07-01 11:35] VITALS: BP 122/71; PULSE 62; RESP 16; TEMP 36.6; O2SAT 95
--- NOTE | 2023-07-01 11:37 | PC.NURSE ---
pt able to tolerate PO w/o any issues. medication administered per provider order.
== END 2023-07-01 11:43 | disposition home or self-care (01) ==
PROVIDERS: Physician Assistant; Emergency Provider Student in an Organized Health Care Education/Training Program; PCP Family Medicine
DX: R10.32 Left lower quadrant pain (principal); I10 Essential (primary) hypertension; Z87.19 Personal history of other diseases of the digestive system
CPT/HCPCS: 36415; 74177; 80048; 80076; 81001; 83690; 83735; 85025; 96361; 96374; 96375; 99284; 99285; J1885; J2405; J7120; Q9967

== ENCOUNTER 2025-03-29 08:32 | Emergency (ER) | payer OTHER, SELFPAY ==
--- NOTE | ~2025-03-29 | XR_ITS ---
CLINICAL HISTORY: cough 2 view chest x-ray. Comparison: None Findings: The lungs are adequately expanded. No focal consolidation. No effusion or pneumothorax. Cardiac and mediastinal contours are within normal limits. No acute osseous abnormality Impression: No acute process. This document has been electronically signed by: Parish Trujillo MD on 03/29/2025 09:27:13
[2025-03-29 08:41] VITALS: BP 140/91; PULSE 93; RESP 18; TEMP 36.6; O2SAT 98; BMI 30.1
[2025-03-29 09:13] LABS: IDNOW Serial# 58CA691E; Strep A Nucleic Acid Negative (Negative)
--- NOTE | 2025-03-29 09:37 | ED_ITS ---
HPI - General Adult General Chief complaint: General Medical Stated complaint: flu like symptoms Time Seen by Provider: 03/29/25 09:36 Source: patient and family (patient's ) Mode of arrival: ambulatory Limitations: no limitations History of Present Illness ED Provider: Dorina Thomas PA-C HPI narrative: Patient is a 54 year old female with a history of bipolar disorder, depression, and anxiety presenting to the emergency department today with a headache, cough, and sore throat. Patient states that over the last 3 days she has had a sore throat, cough, and headache. Patient denies any other complaints at this time. Onset (ago): day(s) (3) Related Data Home Medications ?Medication ?Instructions ?Recorded ?Confirmed ascorbic acid (vitamin C) 500 mg 500 mg PO DAILY 11/0701/27/23 tablet (Vitamin C) ibuprofen 200 mg tablet 200 mg PO Q6H PRN Pain 11/0701/27/23 levothyroxine 88 mcg tablet 88 mcg PO DAILY 11/07/22 1 losartan 25 mg tablet 25 mg PO DAILY 11/07/2201/02 omega 6-bid-jqm-fish oil 1,000 mg 1 cap PO DAILY 11/0701/27/23 (120 mg-180 mg) capsule (Fish Oil) propylene glycol 1 %-glycerin 0.3 1 drp ophthalmic (ey e) DAILY PRN 11/07/22 01/27/23 % eye drops (Artificial Tears Dry Eyes (glycerin-peg)) zolpidem 10 mg tablet 10 mg PO BEDTIME 11/07/22 Previous Rx's ?Medication ?Instructions ?Recorded docusate sodium 100 mg capsule 100 mg PO BID #60 caps 11/30/22 (Colace) ondansetron 4 mg disintegrating 4 mg PO Q8H PRN nausea and 07/01/23 tablet vomiting #6 tabs polyethylene glycol 3350 17 17 g PO DAILY #119 grams 0 07/01/23 gram/dose oral powder (Miralax) Allergies Allergy/AdvReac Type Severity Reaction Status Date / Time Penicillins Allergy Rash Verified 03/29/25 08:44 morphine AdvReac Headache Verified 03/29/25 08:44 Review of Systems Constitutional: Constitutional: Reports as per HPI Eyes: Eyes: Reports as per HPI ENT: Reports as per HPI Cardiovascular: Cardiovascular: Reports as per HPI Respiratory: Respiratory: Reports as per HPI Gastrointestinal: Gastrointestinal: Reports as per HPI Genitourinary: Genitourinary: Reports as per HPI Musculoskeletal: Musculoskeletal: Reports as per HPI Integumentary/Breasts: Skin/Breast: Reports as per HPI Neurologic: Reports as per HPI Psychiatric: Psychiatric: Reports as per HPI Endocrine: Endocrine: Reports as per HPI Hematologic/Lymphatic: Hematologic/Lymphatic: Reports as per HPI Allergic/Immunologic: Allergic/Immunologic: Reports as per HPI [facility] Past Medical History Attestation statement: The following information was validated with the patient. (all information validated with the patient's .) Source: old records reviewed, obtained from family (patient's provided additional history and confirmed the history provided by the patient. ) and nursing notes reviewed Medical History Diverticular disease Hypertension Thyroid disease Depression Bipolar illness Anxiety Surgical History Hx of colonoscopy (~01/27/23) S/P LASIK surgery of both eyes Tubal ligation status H/O colonoscopy Hx of tonsillectomy H/O thyroidectomy Social History Social History Household Members: Spouse Do you presently have visiting nurse or other home services: No Alcohol intake: never Patient Tobacco Use Status: Never used Tobacco Advance Directives: No Advance Directives Information Provided: Yes Do you have a plan to hurt others: No Plan service: No Physical Exam ED Vital Signs: Vital Signs - 24 hr 03/29/25 08:41 03/29/25 10:11 Temperature 97.9 F 97.9 F Pulse Rate 93 93 Respiratory Rate 18 18 Blood Pressure 140/91 H 140/91 H Pulse Oximetry 98 98 Oxygen Delivery Method Room Air Room Air BMI result Body Mass Index 30.1 Const General: cooperative, alert and awake Orientation/consciousness: patient oriented x3 HENMT Head: Yes normal to inspection and Yes atraumatic Ears: hearing grossly normal bilaterally and external ears normal General nose exam: Normal external nose present, no nasal discharge noted and no epistaxis Face and sinus: Yes normal facial exam, No abrasion and No laceration Mouth: Normal oral and palatal mucosa present, no drooling and no muffled voice Eyes General: appearance normal, both eyes and all related structures Periorbital: periorbital findings normal Eyelids: Yes eyelids normal Conjunctivae: conjunctivae normal Pupils: Equal, round and reactive pupils present EOM: EOMs intact bilaterally Resp Effort & Inspection: normal respiratory effort and able to speak in complete sentences Neuro General: patient oriented x3, moves all extremities and CN's II-XI intact bilaterally Cranial nerves: Yes Equal, round and reactive pupils present Cognition (Neuro): normal cognition Extrem General: Yes full ROM Psych Appearance: grossly normal Mental Status: mental status grossly normal Attitude: cooperative Medications Administered Discontinued Medications Generic Name Dose Route Start Last Admin Trade Name Freq PRN Reason Stop Dose Admin Dexamethasone Sodium Phosphate 10 mg 03/29/25 09:54 03/29/25 10:04 Dexamethasone Sod Phosphate 10 Mg/Ml Vial PO 03/29/25 09:55 10 mg ONCE ONE Administration Medical Decision Making Medical Decision Making MDM Narrative: Patient is a 54 year old female with a history of bipolar disorder, depression, and anxiety presenting to the emergency department today with a headache, cough, and sore throat. Patient's physical exam was as noted in the physical exam portion of this note. Patient's chest x-ray showed no acute process. Patient's COVID-19, influenza, RSV, and strep testing was all negative. Patient's clinical presentation is most consistent with a viral illness. I explained my physical exam findings as well as all test results to the patient and the patient's . I answered all questions asked by the patient and the patient's . Patient was given 10mg of PO decadron while in the department. I stressed the importance of the patient taking her medication as directed (either prescribed or as the over the counter packaging recommends). I stressed the importance of the patient following up with her primary care provider. I stressed the importance of the patient returning to the emergency department immediately if her symptoms were to worsen or if she were to develop any dizziness, shortness of breath, difficulty breathing, chest pain, blurry vision, loss of vision, nausea, vomiting, abdominal pain, fever, chills, back pain, or any other complaints. Patient and the patient's verbalized agreement and understanding with this treatment plan and discharge. Differential Diagnosis Differential Diagnoses: The differential diagnosis associated with the presentation includes Headache Viral illness COVID-19 Influenza RSV Admission/Observation Consideration of admission/observation: Escalation of care including admission/observation considered Patient would have been admitted to the hospital had her work up had any findings where hospital admission was appropriate and her clinical presentation warranted hospital admission. Lab Data [facility] Lab Attestation statement: I reviewed the patient's lab results. My interpretation of these results are in the [facility] Rationale portion of this note. Labs: Lab Results 03/29/25 Range/Units 08:56 Influenza Type A (PCR) NEGATIVE (Negative) Influenza Type B (PCR) NEGATIVE (Negative) RSV RNA Qual (PCR) NEGATIVE (Negative) SARS-CoV-2 RNA (RT-PCR) NEGATIVE (Negative) S. pyogenes GrpA MARK Negative (Negative) Independent Interpretation I performed an independent interpretation of an: Plain X-Ray Interpretation: My interpretation is in agreement with the radiologist's impression of this imaging study as written below. CLINICAL HISTORY: cough 2 view chest x-ray. Comparison: None Findings: The lungs are adequately expanded. No focal consolidation. No effusion or pneumothorax. Cardiac and mediastinal contours are within normal limits. No acute osseous abnormality Impression: No acute process. This document has been electronically signed by: Parish Trujillo MD on 03/29/2025 09:27:13 Dictated By: Parish Trujillo MD Signed By: Electronically signed by Parish Trujillo MD 03/29/25926 Radiology Impression Discussion of test interpretation with radiology: I have reviewed the radiologist's reading. Independent Historian Clinical information obtained from an independent historian. History obtained from or confirmed by: Spouse (patient's provided additional history and confirmed the history provided by the patient. ) Discharge Plan Discharge Clinical Impression: Viral illness Patient Disposition: Home, Self-Care Instructions: Viral Syndrome (ED) Additional Instructions: Your work up today showed no acute process. You are likely suffering from a virus. IF you are prescribed home medications and/or you are taking over the counter medications at home - it is very important you continue to do so as prescribed / directed unless told otherwise by a healthcare provider. Follow up with your primary care provider. Do your best to stay well hydrated and rest. Return to the emergency department immediately if your symptoms worsen or if you develop any numbness, tingling, dizziness, shortness of breath, difficulty breathing, chest pain, blurry vision, loss of vision, nausea, vomiting, abdominal pain, fever, chills, back pain, or any other complaints. Please see the information below about our Patient Portal. If you are not yet enrolled in the [facility] Patient Portal, you will receive an enrollment email invitation following your visit to any [facility] setting. You may also self-enroll in the Patient Portal by visiting our website: [email or web address] The following information is required to access the Patient Portal: - Your [facility] Medical Record Number - Your personal home email address (must match what is in your electronic medical record, Registration staff can assist with this) - Name - Date of Capabilities of the Patient Portal: - Message some providers - View upcoming appointments - Access your health summary, medical history, and visit history - View current conditions and allergies - View procedure and lab results - View your medications, including guidelines, side effects, and precautions - Complete pre-appointment questionnaires requested by your provider - Ready summary reports of your office visits and procedures To access the Patient Portal Mobile [employer], follow these directions: - Search [employer] in the [employer] Store or [employer] Store - Download the [employer] - Search for [facility] - Enter your login/password Prescriptions: No Action levothyroxine 88 mcg tablet 88 mcg PO DAILY ascorbic acid (vitamin C) [Vitamin C] 500 mg Tablet 500 mg PO DAILY losartan 25 mg tablet 25 mg PO DAILY ibuprofen 200 mg Tablet 200 mg PO Q6H PRN (Reason: Pain) zolpidem 10 mg tablet 10 mg PO BEDTIME omega 7-mki-xlh-fish oil [Fish Oil] 1,000 mg (120 mg-180 mg) Capsule 1 cap PO DAILY Artificial Tears(glycerin-peg) 1-0.3 % Drops 1 drp OPHTHALMIC (EYE) DAILY PRN (Reason: Dry Eyes) ondansetron 4 mg tablet,disintegrating 4 mg PO Q8H PRN (Reason: nausea and vomiting) Qty: 6 0RF polyethylene glycol 3350 [Miralax] 17 gram/dose powder 17 g PO DAILY Qty: 119 0RF docusate sodium [Colace] 100 mg capsule 100 mg PO BID Qty: 60 0RF Referrals: Marlene Rowan MD [Primary Care Provider, Internal Medicine] Interventions: ED Discharge Assessment Last Done: 03/29/25 10:11 Discharge Date/Time: 03/29/25 10:12 Print Language: Thai
[2025-03-29 09:42] LABS: Resp Syncy Virus RNA Qual PCR NEGATIVE (Negative); SARS COV2 PCR INHOUSE NEGATIVE (Negative)
[2025-03-29 10:11] VITALS: BP 140/91; PULSE 93; RESP 18; TEMP 36.6; O2SAT 98
== END 2025-03-29 10:12 | disposition home or self-care (01) ==
PROVIDERS: Emergency Provider Emergency Medicine; PCP Family Medicine
DX: B34.9 Viral infection, unspecified (principal); R05.9 Cough, unspecified; J02.9 Acute pharyngitis, unspecified; Z03.818 Encounter for observation for suspected exposure to other biological agents ruled out; Z79.899 Other long term (current) drug therapy
CPT/HCPCS: 71046; 87637; 87651; 99282; 99283; J1100

== ENCOUNTER → 2025-03-29 08:44 | Outpatient (BNV) | payer OTHER, SELFPAY | PROVIDERS: Emergency Provider Emergency Medicine; PCP Family Medicine; Visit Provider Radiology Vascular & Interventional Radiology | DX: R05.9 Cough, unspecified (principal) | CPT/HCPCS: 71046 ==